=== PATIENT | male | born 1960 | race African-American/Black ===

== ENCOUNTER 2022-04-28 18:11 | Emergency (ER) | payer MEDICAID, SELFPAY ==
--- NOTE | ~2022-04-28 | XR_ITS ---
EXAMINATION: XR forearm LT 2V, XR hand wrist LT CLINICAL INFORMATION: Reason for Exam fracture COMPARISON: None. TECHNIQUE: 3 view series left forearm; 3 view series left wrist. FINDINGS: Left wrist: An oblique fracture of the fourth proximal phalanx is identified without definitive intra-articular extension. No associated erosive osseous lesion. A 4 mm well-corticated ossific body is present adjacent to the radial aspect of the fifth proximal interphalangeal joint and may represent a chronic posttraumatic, ununited fracture fragment. The distal radius appears intact. Left forearm: No fractures or acute appearing subluxations of the former visualized. A chronic appearing 2 mm rounded calcification is present in the antecubital region and may represent a phlebolith. XR/XR hand wrist LT IMPRESSION: Left wrist and left forearm: *Acute displaced oblique fracture of the fourth proximal phalanx. *4 mm well-corticated ossific body along the radial aspect of the fifth proximal interphalangeal joint which may represent the sequela of remote trauma. If clinical concern is present for acute on chronic injury in this region, recommend dedicated hand radiographs for further evaluation.
--- NOTE | ~2022-04-28 | XR_ITS ---
EXAMINATION: XR forearm LT 2V, XR hand wrist LT CLINICAL INFORMATION: Reason for Exam fracture COMPARISON: None. TECHNIQUE: 3 view series left forearm; 3 view series left wrist. FINDINGS: Left wrist: An oblique fracture of the fourth proximal phalanx is identified without definitive intra-articular extension. No associated erosive osseous lesion. A 4 mm well-corticated ossific body is present adjacent to the radial aspect of the fifth proximal interphalangeal joint and may represent a chronic posttraumatic, ununited fracture fragment. The distal radius appears intact. Left forearm: No fractures or acute appearing subluxations of the former visualized. A chronic appearing 2 mm rounded calcification is present in the antecubital region and may represent a phlebolith. XR/XR forearm LT 2V IMPRESSION: Left wrist and left forearm: *Acute displaced oblique fracture of the fourth proximal phalanx. *4 mm well-corticated ossific body along the radial aspect of the fifth proximal interphalangeal joint which may represent the sequela of remote trauma. If clinical concern is present for acute on chronic injury in this region, recommend dedicated hand radiographs for further evaluation.
[2022-04-28 18:19] VITALS: BP 117/74; BP 130/60; PULSE 74; PULSE 81; RESP 20; TEMP 37.2; O2SAT 96; O2SAT 98; BMI 20.3
--- NOTE | 2022-04-28 19:02 | ED.EXTPRO ---
HPI - Extremity Problem General Chief complaint: Extremity Problem Stated complaint: hand fx Time Seen by Provider: 04/28/22 19:02 Source: patient and EMS Mode of arrival: EMS Limitations: physical limitation (Dementia, nonverbal) History of Present Illness HPI Narrative: 61-year-old male presents via EMS from [facility] for fracture to his 4th finger. MD Complaint: extremity swelling Onset (ago): unknown Location: left and upper extremity Associated symptoms: denies other symptoms Related Data Allergies Allergy/AdvReac Type Severity Reaction Status Date / Time SEAFOOD Allergy Severe SWELLING Uncoded 11/12/19 18:18 shell fish Allergy Unknown Uncoded 11/06/18 00:00 Review of Systems Review of Systems: Yes Unobtainable due to mental condition (Nonverbal, dementia) [facility] Past Medical History Attestation statement: The following information was validated with the patient. Source: old records reviewed Social History Social History Smoked in Last 30 Days: No Advance Directives: Yes Advance Directives Information Provided: No Advance Directives on File: No Physical Exam Vital Signs: Vital Signs: Last Vital Signs Temp 99 F 04/28/22 18:19 Pulse 74 04/28/22 18:19 Resp 20 04/28/22 18:19 BP 117/74 04/28/22 18:19 Pulse Ox 98 04/28/22 18:19 O2 Del Method 04/28/22 18:19 BMI result Body Mass Index 20.3 Appearance: Alert. Nonverbal. Eyes: Pupils equal, round and reactive to light. Neck: Normal inspection. Neck supple. CVS: Normal heart rate and rhythm. Pulses normal. Respiratory: No respiratory distress. Breath sounds normal. Abdomen: Soft and nontender. Skin: Skin warm and dry. Normal skin color. Normal skin turgor. Extremities: Visible deformity and swelling to the left 3rd and 4th digits. Neuro: No motor deficit. No sensory deficit. Unable to assess cranial nerves as patient will not follow directions and does not speak Course Course Course Narrative: 61-year-old male presents via EMS for fracture to his left 4th and 5th fingers. Patient is nonverbal, and unable to follow directions I did discuss this case with the attending physician that referred him to the emergency department, Dr. Kaur. Dr. Kaur states that this patient has dementia, is nonverbal, is unable to follow directions. The patient has a behavior, patient likes to hide in closets and bathrooms, and has been known to accidentally crushes hand in the door. It is suspected that this injury occurred during [address] of [address] hiding episodes. Dr. Kaur describes this patient as pleasant, and is not known to have aggressive behaviors. 20:43 x-rays indicate oblique fracture of the 4th proximal phalanx, and 5th interphalangeal joint. Also has posttraumatic chronic fractures consistent with prior injury. Plan of care is for ulnar gutter splint. Dr. Kaur will prescribe the appropriate medications for pain. Report given to Dr. Kaur by this [employer]. Patient will return [facility]. Consultations Consultation #1: Dr. Kaur Medical Decision Making Differential Diagnosis Differential Diagnoses: The differential diagnosis associated with the presentation includes Finger fracture Consult Healthcare Provider Management of the patient was discussed with: Primary Care Provider Independent Interpretation I performed an independent interpretation of an: Plain X-Ray Radiology Impression Discussion of test interpretation with radiology: I have reviewed the radiologist's reading. Radiologist Impression: EXAMINATION: XR forearm LT 2V, XR hand wrist LT CLINICAL INFORMATION: Reason for Exam fracture COMPARISON: None. TECHNIQUE: 3 view series left forearm; 3 view series left wrist. FINDINGS: Left wrist: An oblique fracture of the fourth proximal phalanx is identified without definitive intra-articular extension. No associated erosive osseous lesion. A 4 mm well-corticated ossific body is present adjacent to the radial aspect of the fifth proximal interphalangeal joint and may represent a chronic posttraumatic, ununited fracture fragment. The distal radius appears intact. Left forearm: No fractures or acute appearing subluxations of the former visualized. A chronic appearing 2 mm rounded calcification is present in the antecubital region and may represent a phlebolith. XR/XR hand wrist LT IMPRESSION: Left wrist and left forearm: *Acute displaced oblique fracture of the fourth proximal phalanx. *4 mm well-corticated ossific body along the radial aspect of the fifth proximal interphalangeal joint which may represent the sequela of remote trauma. If clinical concern is present for acute on chronic injury in this region, recommend dedicated hand radiographs for further evaluation.? Chronic Conditions Patient?s care impacted by: Other (Dementia) Social Determinants Patient?s care significantly limited by Social Determinants of Health including: Other Social Determinant of Health Discharge Plan Discharge Clinical Impression: Fracture of phalanx, proximal, left hand Patient Disposition: Xfer SNF Transfer Details: [facility] Instructions: Finger Fracture (ED) Additional Instructions: You were evaluated for finger fractures. Please keep ulnar gutter splint in place until you see orthopedics. Rest ice and elevate the extremity to help reduce pain and swelling. Alternate Tylenol 650 mg every 6 hours and Motrin 600 mg every 6 hours as needed for pain and fever management. Consider taking these medications 3 hours apart so you have pain and fever management every 3 hours. Write down what time you take these medications to prevent accidental overdose. Motrin is the same medication as Advil and ibuprofen. Tylenol is the same medication as acetaminophen. Thank you for choosing this emergency department for evaluation. Please follow-up with primary care physician as needed. Return to the emergency department for any new, concerning, or worsening symptoms.
--- NOTE | 2022-04-28 20:45 | MHC.EDTECH ---
pct William applied ulnar gutter per provider order and I assisted. pt is now resting comfortably awaiting transport home
--- NOTE | 2022-04-28 20:49 | MHC.EDTECH ---
Khadra called at 2047 for a bls transfer back to Facility[facility].Rn aware
--- NOTE | 2022-04-28 21:22 | PC.NURSE ---
verbal report given to [facility]
[2022-04-28 23:33] VITALS: BP 141/82; PULSE 62; RESP 16; O2SAT 99
== END 2022-04-29 00:53 | disposition skilled nursing facility (03) ==
PROVIDERS: Emergency Provider Emergency Medicine Emergency Medical Services; PCP Hospitalist
DX: S62.615A Displaced fracture of proximal phalanx of left ring finger, initial encounter for closed fracture (principal); X58.XXXA Exposure to other specified factors, initial encounter; Y93.9 Activity, unspecified; Y92.049 Unspecified place in boarding-house as the place of occurrence of the external cause; Y99.9 Unspecified external cause status
CPT/HCPCS: 29125; 73090; 73110; 73130; 99283; 99284

== ENCOUNTER 2022-05-14 11:32 | Outpatient (REF) | payer MEDICAID, SELFPAY ==
--- NOTE | ~2022-05-14 | XR_ITS ---
EXAMINATION: XR HAND, LEFT CLINICAL INFORMATION: Oblique fracture fourth proximal phalanx left hand. COMPARISON: Left hand and wrist radiographs 04/28/2022. TECHNIQUE: 5 views of the left hand are obtained. FINDINGS: There is an oblique fracture fourth finger proximal phalanx. There is dorsal angulation of the distal fracture fragment and mild overlap of fracture fragments. No interval callus formation demonstrated. No visible acute fracture or dislocation or destructive process. XR/XR hand LT min 3V IMPRESSION: -Fracture fourth finger proximal phalanx with dorsal angulation distal fragment and mild overlap of fracture fragments. -No interval visible callus formation.
== END 2022-05-14 11:33 | disposition home or self-care (01) ==
LOC: HO.HOSX 11:32
PROVIDERS: Visit Provider Physician Assistant
DX: L98.499 Non-pressure chronic ulcer of skin of other sites with unspecified severity (principal); S62.615A Displaced fracture of proximal phalanx of left ring finger, initial encounter for closed fracture
CPT/HCPCS: 73130; 99202

== ENCOUNTER → 2022-05-15 13:07 | Outpatient (BNVA) | payer MEDICAID, SELFPAY | PROVIDERS: PCP Hospitalist; Visit Provider Physician Assistant | DX: L98.499 Non-pressure chronic ulcer of skin of other sites with unspecified severity (principal); S62.615D Displaced fracture of proximal phalanx of left ring finger, subsequent encounter for fracture with routine healing | CPT/HCPCS: 99212 ==

== ENCOUNTER 2022-05-30 10:19 | Outpatient (REF) | payer MEDICAID, SELFPAY ==
--- NOTE | ~2022-05-30 | XR_ITS ---
EXAMINATION: XR HAND, LEFT CLINICAL INFORMATION: Fracture COMPARISON: Previous x-ray most recent 05/14/2022 TECHNIQUE: 2 views of the left hand. FINDINGS: There is an oblique minimally displaced fracture of the proximal phalanx of the fourth finger. Alignment does not appear appreciably changed. There is adjacent soft tissue swelling. Fracture line is still seen. No appreciable bony callus formation. There is a well-corticated ossification adjacent to the PIP joint of the fifth finger suggestive of old trauma. No other acute fracture. Arthritis at the thumb. XR/XR hand LT min 3V IMPRESSION: No change in fracture of the proximal phalanx of the fourth finger.
== END 2022-05-30 10:20 | disposition home or self-care (01) ==
LOC: HO.HOSX 10:19
PROVIDERS: Visit Provider Orthopaedic Surgery
DX: S62.615D Displaced fracture of proximal phalanx of left ring finger, subsequent encounter for fracture with routine healing (principal); L98.499 Non-pressure chronic ulcer of skin of other sites with unspecified severity
CPT/HCPCS: 73130

== ENCOUNTER 2022-06-06 09:54 | Outpatient (REF) | payer MEDICAID, SELFPAY ==
--- NOTE | ~2022-06-06 | XR_ITS ---
EXAMINATION: XR HAND, LEFT CLINICAL INFORMATION: Fracture COMPARISON: Previous x-rays most recent 05/30/2022 TECHNIQUE: PA, lateral, and oblique views of the left hand. FINDINGS: Fracture of the proximal phalanx of the fourth finger unchanged. Question fracture of the PIP joint of the fifth finger also unchanged. Arthritis at the first MTP joint. Soft tissues are unremarkable. XR/XR hand LT min 3V IMPRESSION: No change in fourth and question fifth finger fractures.
== END 2022-06-06 09:55 | disposition home or self-care (01) ==
LOC: HO.HOSX 09:54
PROVIDERS: PCP Hospitalist; Visit Provider Physician Assistant
DX: S62.615A Displaced fracture of proximal phalanx of left ring finger, initial encounter for closed fracture (principal)
CPT/HCPCS: 29125; 73130

== ENCOUNTER → 2022-06-12 12:15 | Outpatient (BNVA) | payer MEDICAID, SELFPAY | PROVIDERS: PCP Hospitalist; Visit Provider Physician Assistant ==

== ENCOUNTER 2022-06-25 12:38 | Outpatient (REF) | payer MEDICAID, SELFPAY ==
--- NOTE | ~2022-06-25 | XR_ITS ---
Examination: Bilateral hand. CLINICAL INDICATION: Pain. COMPARISON: Left hand 06/06/2022. TECHNIQUE: 3 views each hand. Left hand: There is an oblique healing fracture mid segment proximal phalanx fourth digit and proximal avulsion fracture mid phalanx proximal segment fifth digit. No additional fracture seen. The soft tissues are normal. Right hand: There is no visible acute fracture, dislocation or subluxation seen. There is mild subluxed first metacarpophalangeal joint, the soft tissues are normal. XR/XR hand RT min 3V IMPRESSION: 1. Oblique healing fracture mid segment proximal phalanx fourth digit and proximal avulsion fracture mid phalanx proximal segment fifth digit. 2. Mild subluxed first metacarpophalangeal joint right hand. No visible acute fracture or dislocation right hand.
--- NOTE | ~2022-06-25 | XR_ITS ---
Examination: Bilateral hand. CLINICAL INDICATION: Pain. COMPARISON: Left hand 06/06/2022. TECHNIQUE: 3 views each hand. Left hand: There is an oblique healing fracture mid segment proximal phalanx fourth digit and proximal avulsion fracture mid phalanx proximal segment fifth digit. No additional fracture seen. The soft tissues are normal. Right hand: There is no visible acute fracture, dislocation or subluxation seen. There is mild subluxed first metacarpophalangeal joint, the soft tissues are normal. XR/XR hand LT min 3V IMPRESSION: 1. Oblique healing fracture mid segment proximal phalanx fourth digit and proximal avulsion fracture mid phalanx proximal segment fifth digit. 2. Mild subluxed first metacarpophalangeal joint right hand. No visible acute fracture or dislocation right hand.
== END 2022-06-25 12:39 | disposition home or self-care (01) ==
LOC: HO.HOSX 12:38
PROVIDERS: Visit Provider Physician Assistant
DX: S62.615A Displaced fracture of proximal phalanx of left ring finger, initial encounter for closed fracture (principal); M79.641 Pain in right hand
CPT/HCPCS: 73130; 99212

== ENCOUNTER 2022-07-20 09:16 | Emergency (ER) | payer MEDICAID, SELFPAY ==
--- NOTE | ~2022-07-20 | US_ITS ---
EXAMINATION: US SCROTUM CLINICAL INFORMATION: Penile and scrotal edema. COMPARISON: None available. TECHNIQUE: A sonogram of the scrotum was performed assessing guajardo-scale appearance and color Doppler flow. Spectral Doppler analysis of the arterial and venous flow were performed in the testes bilaterally. FINDINGS: RIGHT: Right testicle measures 3.3 x 2.6 x 2.0 cm, volume 8.9 mL. There is mild atrophy and is appearing testicles without any parenchymal lesions. Spectral Doppler analysis of the arterial and venous flow is increased in the right testis. Right epididymal head is normal in size. There are anechoic cyst in the epidural head measuring 0.8 x 0.5 x 0.7 cm appearing simple and 0.4 x 0.2 x 0.5 cm appearing complex with internal debris. No right hydrocele or varicocele is seen. Right epididymal Doppler flow is normal. LEFT: Left testicle measures 3.1 x 1.8 x 2.3 cm, volume 6.8 mL. No focal testicular parenchymal lesions are visualized. Spectral Doppler analysis of the arterial and venous flow is increased in the left testis. Left epididymal head is normal in size. There is anechoic and visualized head simple cyst measuring 0.6 x 0.4 x 0.3 cm. No left hydrocele or varicocele is seen. Left epididymal Doppler flow is normal. US/US scrotum IMPRESSION: Bilateral heterogeneous and hypervascular testes likely low-grade inflammation. No mass seen. There are bilateral epididymal cysts with normal epididymal Doppler flow. There is no hydrocele or varicocele.
--- NOTE | ~2022-07-20 | US_ITS ---
EXAMINATION: US SCROTUM CLINICAL INFORMATION: Penile and scrotal edema. COMPARISON: None available. TECHNIQUE: A sonogram of the scrotum was performed assessing guajardo-scale appearance and color Doppler flow. Spectral Doppler analysis of the arterial and venous flow were performed in the testes bilaterally. FINDINGS: RIGHT: Right testicle measures 3.3 x 2.6 x 2.0 cm, volume 8.9 mL. There is mild atrophy and is appearing testicles without any parenchymal lesions. Spectral Doppler analysis of the arterial and venous flow is increased in the right testis. Right epididymal head is normal in size. There are anechoic cyst in the epidural head measuring 0.8 x 0.5 x 0.7 cm appearing simple and 0.4 x 0.2 x 0.5 cm appearing complex with internal debris. No right hydrocele or varicocele is seen. Right epididymal Doppler flow is normal. LEFT: Left testicle measures 3.1 x 1.8 x 2.3 cm, volume 6.8 mL. No focal testicular parenchymal lesions are visualized. Spectral Doppler analysis of the arterial and venous flow is increased in the left testis. Left epididymal head is normal in size. There is anechoic and visualized head simple cyst measuring 0.6 x 0.4 x 0.3 cm. No left hydrocele or varicocele is seen. Left epididymal Doppler flow is normal. US/US scrotum doppler IMPRESSION: Bilateral heterogeneous and hypervascular testes likely low-grade inflammation. No mass seen. There are bilateral epididymal cysts with normal epididymal Doppler flow. There is no hydrocele or varicocele.
--- NOTE | 2022-07-20 09:25 | ED.GENADULT ---
HPI - General Adult General Chief complaint: Urogenital-Male Stated complaint: swollen penis Time Seen by Provider: 07/20/22 09:17 Source: EMS Mode of arrival: EMS Limitations: other (Nonverbal dementia) History of Present Illness HPI narrative: 62-year-old male with history of nonverbal dementia presents with penile swelling. Symptoms are noted today. Facility reports possible tenderness and pain. They are not sure if there was any trauma. There has been no reported fevers or chills. There is no clear relieving or exacerbating features. No other significant medical issues have been presented to EMS. They do report some impulsivity behavior and stealing behavior. Possible they have found patient masturbating from time to time using lotions of other patients. Related Data Home Medications Medication Instructions Recorded Confirmed acetaminophen 325 mg capsule 650 mg PO Q4H PRN 05/30/22 aspirin 81 mg tablet,delayed 81 mg PO DAILY 05/30/22 release bisacodyl 10 mg rectal suppository 10 mg ME DAILY PRN 05/30/22 docusate sodium 100 mg capsule 100 mg PO DAILY 05/30/22 (Colace) ibuprofen 200 mg tablet (Motrin IB) 200 mg PO Q6H PRN 05/30/22 isosorbide dinitrate 5 mg tablet 5 mg PO BID 05/30/22 levothyroxine 75 mcg capsule 75 mcg PO DAILY 05/30/22 oxycodone 5 mg capsule 5 mg PO Q4H PRN 05/30/22 Previous Rx's Medication Instructions Recorded ciprofloxacin HCl 500 mg tablet 500 mg PO BID #14 tabs 07/20/22 (Cipro) Allergies Allergy/AdvReac Type Severity Reaction Status Date / Time SEAFOOD Allergy Severe SWELLING Uncoded 06/25/22 12:51 shell fish Allergy Unknown Unknown Uncoded 06/25/22 12:51 [facility] Past Medical History Medical History (Reviewed 07/20/22 @ 09: by Tico Medina MD) Hx of thyroid disease Social History Social History (Reviewed 07/20/22 @ 09: by Tico Medina MD) Alcohol intake: never Smoked in Last 30 Days: No Use of substances other than those prescribed or required for medical reasons: No Advance Directives: No Advance Directives Information Provided: Yes Current occupational status: disabled 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 Physical Exam ED Vital Signs: Vital Signs - 24 hr 07/20/22 09:47 07/20/22 11:48 Temperature 98.0 F 98.2 F Pulse Rate 61 60 Respiratory Rate 16 16 Blood Pressure 125/69 108/72 Pulse Oximetry 100 100 Oxygen Delivery Method Room Air Room Air BMI result Body Mass Index 19.7 GEN: Well developed, no acute distress, alert HEENT: Normocephalic, atraumatic, normal external ears, nose appears normal, no oropharyngeal edema or exudates Eyes: Normal to appearance Neck: Supple, no lymphadenopathy Respiratory: Talks in complete sentences, no respiratory distress, clear to auscultation bilaterally Cardiovascular: Regular rate and rhythm, no murmurs rubs or gallops Abdomen: Soft, nontender, nondistended, no guarding, no rebound Back: No CVA tenderness Extremities: No clubbing cyanosis or edema Neurologic: Moves all extremities : Penile edema, mild scrotal edema Lymph: Bilateral inguinal lymphadenopathy mobile, subcentimeter Skin: No rash Course Course Course Narrative: Patient presents with penile swelling. There is no evidence of trauma. There is no discharge. There is no evidence of paraphimosis, penile discharge. Will do a straight catheterization to check for urinary tract infection. Will also have an ultrasound of the scrotum. Reevaluation(s) Reevaluation #1: Patient is urinary tract infection. He will be treated with antibiotics. Medical Decision Making Medical Decision Making [facility] Narrative: Patient presents with penile edema. Exam did not reveal any tenderness. He did have inguinal lymphadenopathy bilaterally. Will check for urinary tract infection. Will check for orchitis or other possible possible inflammatory conditions. Differential Diagnosis Differential Diagnoses: The differential diagnosis associated with the presentation includes (Orchitis, penile edema, swelling, UTI, trauma) Lab Data [facility] Lab Attestation statement: I reviewed the patient's lab results. Labs: Lab Results 07/20/22 Range/Units 10:54 Urine Color Yellow Urine Appearance Cloudy Urine pH 7.0 (5.0-9.0) Ur Specific [place] 1.025 (1.005-1.025) Urine Protein Trace (Neg-Trace) mg/dL Urine Glucose (UA) Negative (Negative) mg/dL Urine Ketones Negative (Negative) mg/dL Urine Blood Trace H (Negative) Urine Nitrite Positive H (Negative) Ur Leukocyte Esterase Moderate (2+) H (Negative) Urine RBC 3-5 H (0-2) /HPF Urine WBC 21-50 (0-5) /HPF Ur Squamous Epith Cells 0-2 (0-2) /HPF Urine Bacteria 4+ (None Seen) Hyaline Casts 0-2 (0-2) /LPF Independent Interpretation I performed an independent interpretation of an: Ultrasound Prescription Management I considered prescription management with: Antibiotic Discharge Plan Discharge Clinical Impression: Penile swelling, Acute UTI, Inguinal adenopathy Patient Disposition: Home, Self-Care Instructions: Urinary Tract Infection in Men (DC), Lymphadenopathy (ED) Prescriptions: New ciprofloxacin HCl [Cipro] 500 mg tablet 500 mg PO BID Qty: 14 0RF No Action acetaminophen 325 mg capsule 650 mg PO Q4H PRN aspirin 81 mg tablet,delayed release (DR/EC) 81 mg PO DAILY bisacodyl 10 mg suppository 10 mg ME DAILY PRN docusate sodium [Colace] 100 mg capsule 100 mg PO DAILY isosorbide dinitrate 5 mg tablet 5 mg PO BID Rx Instructions: allow nitrate-free interval of 12-14 hrs per 24-hr period ibuprofen [Motrin IB] 200 mg tablet 200 mg PO Q6H PRN oxycodone 5 mg capsule 5 mg PO Q4H PRN levothyroxine 75 mcg capsule 75 mcg PO DAILY Referrals: Gustavo Kaur DO [Primary Care Provider] - 3 days
[2022-07-20 09:47] VITALS: BP 125/69; BP 140/70; PULSE 61; PULSE 79; RESP 16; TEMP 36.7; O2SAT 100; O2SAT 98; BMI 19.7
--- NOTE | 2022-07-20 10:13 | PC.NURSE ---
bedside ultrasound is being done.
[2022-07-20 11:16] LABS: Appearance Urine Cloudy; Color Urine Yellow; Glucose Urine UA Negative (Negative); Leukocyte Esterase Urine Moderate (2+) (Negative); Nitrite Urine Positive (Negative); Specific Gravity - Urine 1.025 (1.005-1.025); UMIC TRIGGER UACC YES; Urine Blood Trace (Negative); Urine Ketones Negative (Negative); Urine Protein Trace mg/dL (Neg-Trace)
[2022-07-20 11:33] LABS: Bacteria Urine 4+ (None Seen); Hyaline Casts Urine 0-2 /LPF (0-2); Squamous Epithelial Cell Urine 0-2 /HPF (0-2); UACC Culture Trigger YES; WBC Urine 21-50 /HPF (0-5)
[2022-07-20 11:48] VITALS: BP 108/72; PULSE 60; RESP 16; TEMP 36.8; O2SAT 100
[2022-07-20] MEDS: cephALEXin 500 MG CAPSULE PO (12:52)
--- NOTE | 2022-07-20 12:59 | MHC.EDTECH ---
pt had a bowel movement, pt cleaned and new pads placed. pt assisted in dressing for discharge.
--- NOTE | 2022-07-20 13:12 | PC.NURSE ---
rn to rn report given to [facility] at [facility] ([phone]). pt aware of plan of care for transfer via ambulance. pt had martín diaz and gonzales.
== END 2022-07-20 13:56 | disposition home or self-care (01) ==
PROVIDERS: Emergency Provider Emergency Medicine; PCP Hospitalist
DX: N48.89 Other specified disorders of penis (principal); N39.0 Urinary tract infection, site not specified; R59.0 Localized enlarged lymph nodes; N50.89 Other specified disorders of the male genital organs; F03.90 Unspecified dementia, unspecified severity, without behavioral disturbance, psychotic disturbance, mood disturbance, and anxiety; Z79.899 Other long term (current) drug therapy
CPT/HCPCS: 76870; 81001; 81003; 87086; 87088; 87186; 93975; 99284

== ENCOUNTER 2022-11-01 15:06 | Outpatient (AMB) | payer MEDICAID, SELFPAY ==
--- NOTE | 2022-11-01 15:07 | A.OFFVIS_ITS ---
Intake Intake Visit Reasons: Genital Warts Intake Note: New Patient presents for initial visit genital warts/swollen scrotum Urology Medications: none Blood Thinner: aspirin Catalyst Recovery Operator Required: No Accompanied by: flight service agent Allergies SEAFOOD Allergy (Severe, Uncoded 11/01/22 21:06) SWELLING shell fish Allergy (Unknown, Uncoded 11/01/22 21:06) Unknown Medication List - Last Reconciled 11/01/22 by MAMI Lucio acetaminophen 650 mg PO Q4H PRN aspirin 81 mg PO DAILY bisacodyl 10 mg [place] DAILY PRN chlorpromazine 50 mg PO BID docusate sodium (Colace) 100 mg PO DAILY doxycycline hyclate 100 mg PO BID 14 days ibuprofen (Motrin IB) 200 mg PO Q6H PRN isosorbide dinitrate 5 mg PO BID levothyroxine 75 mcg PO DAILY oxycodone 5 mg PO Q4H PRN HPI HPI Comments History of Present Illness Details Barrie is a 62-year-old male patient of Dr. Kaur who resides at [facility] here at [place]. He is accompanied by 1 of the care attendants Suri from [facility]. He is nonverbal. He has a past medical history of atherosclerotic heart disease, hypothyroidism, hyperlipidemia, urinary incontinence, dysphagia, hypertension, cataracts, osteoarthritis, and dementia. He presents to the office today as a new patient for ongoing scrotal and penile edema. Call to [facility] to speak with nursing as patient is nonverbal and unable to obtain information from the patient today. Nursing reports approximately 4 months ago patient was sent out to [facility] for this same issue. In review of patient's chart it appears patient was found to have a urinary tract infection and prescribed antibiotics and sent back to [facility]. Nursing reports penile edema/lymphedema mildly improved. Nursing discusses patient rarely allows staff to assist patient with ADLs. She reports he at times will refuse care. They are not sure if there was any trauma. She denies patient to have had any fevers and or chills. There is no clear relieving or exacerbating features. In assessment of the patient today significant penile edema present with mild scrotal edema. There are a cluster of bumps throughout the scrotal area that appear bumpy and cauliflower like. Likely genital warts. Bilateral inguinal lymphadenopathy present mobile, subcentimeter. There is no evidence of trauma. There is no discharge. There is no evidence of paraphimosis. No pain elicited on exam today. In review of patient's chart it appears scrotal ultrasound was performed 07/17 these results were reviewed with nursing. Bilateral heterogeneous and hypervascular testes likely low-grade inflammation. No masses seen. There are bilateral epididymal cysts with normal epididymal Doppler flow. There is no hydrocele or varicocele seen. Unable to obtain urine for urinalysis as patient is unable to give urinalysis due to incontinence. PVR 176 mL. [facility] Medical History Displaced fracture of distal phalanx of left ring finger, initial encounter for closed fracture Personal history of COVID-19 Age-related nuclear cataract, bilateral Osteoarthritis of hip, unspecified Dementia in other diseases classified elsewhere, unspecified severity, without behavioral disturbance, psychotic disturbance, mood disturbance, and anxiety Myopia, bilateral Full incontinence of feces Essential (primary) hypertension Dysphagia, unspecified Allergy to seafood Allergy, unspecified, initial encounter Unspecified urinary incontinence Hyperlipidemia, unspecified Hypothyroidism, unspecified Hx of thyroid disease Social History Alcohol intake: never Current occupational status: disabled 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 Review of Systems Const Reports as per HPI Eyes Reports as per HPI ENT Reports no additional complaints Card Reports as per HPI GI Reports no additional complaints Reports as per HPI Musc Reports as per HPI Neuro Reports as per HPI Psych Reports as per HPI Endo Reports as per HPI Physical Exam Const General: cooperative, comfortable, no acute distress, well developed, alert and awake Orientation/consciousness: Other orientation findings (nonverbal; makes eye contact when calling his name ) HEENT Head: Yes normal to inspection, Yes normocephalic and Yes atraumatic Neck Neck: Yes normal visual inspection and Yes trachea midline Chest Chest palpation & inspection: normal inspection of the chest Resp Effort & Inspection: normal respiratory effort Cardio Rhythm: regular rhythm GI Inspection: Yes normal to inspection Male General Exam: Yes other (as per HPI) Penis: uncircumcised Results Reviewed Results Reviewed: Date of Service: 07/20/22 EXAMINATION: US SCROTUM FINDINGS: RIGHT: Right testicle measures 3.3 x 2.6 x 2.0 cm, volume 8.9 mL. There is mild atrophy and is appearing testicles without any parenchymal lesions. Spectral Doppler analysis of the arterial and venous flow is increased in the right testis. Right epididymal head is normal in size. There are anechoic cyst in the epidural head measuring 0.8 x 0.5 x 0.7 cm appearing simple and 0.4 x 0.2 x 0.5 cm appearing complex with internal debris. No right hydrocele or varicocele is seen. Right epididymal Doppler flow is normal. LEFT: Left testicle measures 3.1 x 1.8 x 2.3 cm, volume 6.8 mL. No focal testicular parenchymal lesions are visualized. Spectral Doppler analysis of the arterial and venous flow is increased in the left testis. Left epididymal head is normal in size. There is anechoic and visualized head simple cyst measuring 0.6 x 0.4 x 0.3 cm. No left hydrocele or varicocele is seen. Left epididymal Doppler flow is normal. IMPRESSION: Bilateral heterogeneous and hypervascular testes likely low-grade inflammation. No mass seen. There are bilateral epididymal cysts with normal epididymal Doppler flow. There is no hydrocele or varicocele. Assessment & Plan Assessment & Plan (1) Penile edema: Code(s): N48.89 - Other specified disorders of penis (2) Genital warts: Code(s): A63.0 - Anogenital (venereal) warts Plan Unable to obtain urine for urinalysis PVR less than 200 mL. Scrotal ultrasound results from 07/17 reviewed Discussed with nursing will start doxycycline 100 mg b.i.d. times 14 days. Discussed changing adult diaper every 2 hours. Discussed elevation of scrotum and penis Discussed bladder scan Q shift to ensure and or assess for urinary retention Discussed, educated, and stressed the importance of seeking emergency room care if symptoms worsen and or patient unable to void Follow-up in 2 weeks; if not sooner with any issues, concerns, and or questions. Medications: New doxycycline hyclate 100 mg PO BID 14 days 28 tabs 0RF N39.0 - Urinary tract infection, site not specified, N45.1 - Epididymitis Patient Instructions: The patient had an opportunity to ask questions regarding the treatment plan. All questions were answered. Physical exam, labs, and imaging were discussed and reviewed in detail. As well as risks, benefits, and discussion of treatment choices. No major barriers to understanding were identified. The patient expressed understanding and agreement with the above treatment plan. The patient was made aware they should contact our office by phone for worsening of their current condition, the appearance of new symptoms, or with any questions or concerns. Compliance is encouraged with any medications and follow up testing that is ordered. It is a privilege to be allowed the opportunity to participate in? your urological care.? Again, if you have any questions or concerns If you have any questions or concerns please do not hesitate to contact me. The office is [phone]. This note is constructed using voice recognition software. While every effort has been made to ensure accuracy director medical writing errors may have been included. Yours sincerely, MAMI Lucio Coding Level of Care Code New Pt Level 4 (68108) Diagnoses Penile edema N48.89 Genital warts A63.0
== END 2022-11-01 15:45 | disposition home or self-care (01) ==
LOC: HO.HUSH 15:06
PROVIDERS: PCP Hospitalist; Visit Provider Nurse Practitioner Family
DX: N48.89 Other specified disorders of penis (principal); A63.0 Anogenital (venereal) warts
CPT/HCPCS: 99204

== ENCOUNTER → 2022-11-01 15:06 | Outpatient (BNVA) | payer MEDICAID, SELFPAY | PROVIDERS: PCP Hospitalist; Visit Provider Nurse Practitioner Family | DX: N48.89 Other specified disorders of penis (principal); A63.0 Anogenital (venereal) warts | CPT/HCPCS: 99202 ==

== ENCOUNTER 2022-11-17 21:36 | Inpatient (IN) | payer MEDICAID, SELFPAY ==
--- NOTE | ~2022-11-17 | CT_ITS ---
EXAMINATION: CT PELVIS WITH CONTRAST CLINICAL INFORMATION: Penile swelling. COMPARISON: None available. TECHNIQUE: Helical scanning was performed with submillimeter collimation through the pelvis with the use of oral contrast and during bolus intravenous injection of 85 mL of Omnipaque 350 intravenous contrast. Sagittal and coronal multiplanar 2-D reconstructions were obtained. This CT examination was performed using dose optimization techniques as appropriate, variously including the following: *Automated exposure control *Adjustment of mA and/or kV according to patient size (this includes techniques or standardized protocols for targeted exams where dose is matched to indication/reason for exam; i.e. extremities or head) *Use of iterative reconstruction technique DLP: 250 mGy-cm FINDINGS: There is significant subcutaneous edema and soft tissue swelling at the penis and scrotum. Skin thickening and enhancement at the base of the penis anteriorly raises the possibility of cellulitis. No significant subcutaneous gas. No discrete fluid collections are identified. Prominent, hyperenhancing bilateral inguinal lymph nodes and enlarged bilateral external iliac lymph nodes (1.5 cm in short axis) are noted, likely reactive in nature. There is a large volume of stool throughout the imaged colon in the pelvis including a large aggregation of well-formed stool in the distal sigmoid and rectum measuring 8 x 6 x 17 cm. No appreciable intraperitoneal free fluid or free air. Bladder wall is mildly the thickened diffusely. No focal nodularity. No bladder calcifications. Vasculature is patent. Mild calcific atherosclerosis in the iliac arteries. Mild osteophytes in the hips and SI joints. Facet arthropathy is present in the lower lumbar spine. CT/CT pelvis w IV con IMPRESSION: 1. Marked soft tissue swelling and subcutaneous edema at the penis and scrotum with skin thickening and enhancement at the base of the penis anteriorly, concerning for cellulitis. No discrete fluid collections. No subcutaneous gas. 2. Large volume of stool in the colon with a large aggregation of well-formed stool in the distal sigmoid and rectum. 3. Mild diffuse bladder wall thickening. Consider correlation with urinalysis to exclude cystitis..
[2022-11-17 21:57] VITALS: BP 126/66; PULSE 65; RESP 18; TEMP 37.2; O2SAT 100; BMI 19.4
--- NOTE | 2022-11-17 22:09 | ED_ITS ---
HPI - Male Genitourinary General Chief complaint: Urogenital-Male Stated complaint: [facility],swollen penis, per ems Time Seen by Provider: 11/17/22 22:05 Source: EMS and RN notes reviewed Mode of arrival: EMS History of Present Illness HPI Narrative: Patient is 62 years old history of severe dementia minimal verbal, hypothyroidism, hyperlipidemia dysphagia and hypertension [place] [facility] [place] [facility] [place] for ongoing scrotal and penile swelling since 07/17 per staff patient complained to them as he is having difficulty urinating and penis is more swollen no fever no penile discharge staff noticed that he has more swelling of the foreskin Related Data Home Medications Medication Instructions Recorded Confirmed acetaminophen 325 mg capsule 650 mg PO Q4H PRN 05/30/22 aspirin 81 mg tablet,delayed 81 mg PO DAILY 05/30/22 release bisacodyl 10 mg rectal suppository 10 mg [place] DAILY PRN 05/30/22 docusate sodium 100 mg capsule 100 mg PO DAILY 05/30/22 (Colace) ibuprofen 200 mg tablet (Motrin IB) 200 mg PO Q6H PRN 05/30/22 isosorbide dinitrate 5 mg tablet 5 mg PO BID 05/30/22 levothyroxine 75 mcg capsule 75 mcg PO DAILY 05/30/22 oxycodone 5 mg capsule 5 mg PO Q4H PRN 05/30/22 chlorpromazine 25 mg tablet 50 mg PO BID 11/01/22 Previous Rx's Medication Instructions Recorded doxycycline hyclate 100 mg tablet 100 mg PO BID 14 days #28 tabs 11/01/22 Allergies Allergy/AdvReac Type Severity Reaction Status Date / Time SEAFOOD Allergy Severe SWELLING Uncoded 11/01/22 21:06 shell fish Allergy Unknown Unknown Uncoded 11/01/22 21:06 Review of Systems 2 Review of Systems: Yes all other systems are reviewed and are negative PMFSH Past Medical History Medical History Displaced fracture of distal phalanx of left ring finger, initial encounter for closed fracture Personal history of COVID-19 Age-related nuclear cataract, bilateral Osteoarthritis of hip, unspecified Dementia in other diseases classified elsewhere, unspecified severity, without behavioral disturbance, psychotic disturbance, mood disturbance, and anxiety Myopia, bilateral Full incontinence of feces Essential (primary) hypertension Dysphagia, unspecified Allergy to seafood Allergy, unspecified, initial encounter Unspecified urinary incontinence Hyperlipidemia, unspecified Hypothyroidism, unspecified Hx of thyroid disease Social History Social History Alcohol intake: never Advance Directives: No Advance Directives Information Provided: No Current occupational status: disabled 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 Refusing to speak Eyes: PERRLA, ENT: Pharynx normal. Oral Mucosa moist Neck: Normal inspection. Neck supple. CVS: Normal heart rate and rhythm. Pulses normal. Respiratory: No respiratory distress. Equal air entry bilateral, no wheezing/rales/rhonchi Abdomen: Soft and nontender. Bowel sounds are present, no mass palpable, no CVA tenderness swollen penis and the foreskin and edema of the scrotal wall Skin: Skin warm and dry. Normal skin color. Normal skin turgor. Bladder scan showed 160 cc urine Extremities: No lower extremity edema. No calf tenderness Neuro: Awake moving all 4 extremities Medications Administered Discontinued Medications Generic Name Dose Route Start Last Admin Trade Name Freq PRN Reason Stop Dose Admin Iohexol 85 ml 11/17/22 23:41 11/17/22 23:41 Iohexol 350 Mg/Ml 100 Ml Infus..Btl IV 11/17/22 23:42 85 ml ONCE ONE Administration Medical Decision Making Medical Decision Making [facility] Narrative: Patient with scrotal and penis cellulitis worsening after the course of doxycycline CT scan showed soft tissue swelling with no air will add start patient on vancomycin admit urology consult Differential Diagnosis Differential Diagnoses: The differential diagnosis associated with the presentation includes Ashley's gangrene/cellulitis Admission/Observation Consideration of admission/observation: Escalation of care including admission/observation considered Consult Healthcare Provider Management of the patient was discussed with: Hospitalist Lab Data [facility] Lab Attestation statement: I reviewed the patient's lab results. 11/17/22 22:20 11/17/22 22:20 Labs: Lab Results 11/17/22 Range/Units 22:20 WBC 4.9 (4.8-10.8) X10*3/uL RBC 3.38 L (4.60-5.80) X10*6/uL Hgb 9.4 L (14.0-18.0) g/dl Hct 30.6 L (42.0-52.0) % MCV 90.5 (80.0-98.0) fL MCH 27.8 (27.0-33.0) pg MCHC 30.7 L (31.0-36.0) g/dl RDW 14.6 (11.0-16.0) % Plt Count 416 H (160-400) X10*3/uL MPV 8.2 L (9.4-12.4) fL Immature Gran % (Auto) 0.2 (0.0-0.4) % Neut % (Auto) 48.9 (45-73) % Lymph % (Auto) 29.8 (20-40) % [place] % (Auto) 13.3 H (2-11) % Eos % (Auto) 7.6 H (0-4) % Baso % (Auto) 0.2 (0-2) % Lymph # (Auto) 1.5 (1.2-4.9) X10*3/uL [place] # (Auto) 0.7 (0.1-1.2) X10*3/uL Eos # (Auto) 0.4 (0.0-0.4) X10*3/uL Baso # (Auto) 0.0 (0.0-0.2) X10*3/uL Abs Immat Gran (auto) 0.01 (0.00-0.03) X10*3/uL Absolute Neuts (auto) 2.4 (2.0-8.3) x10*3/uL Absolute Nucleated RBC 0.000 (0.0-0.012) X10*3/uL Nucleated RBC % (auto) 0.0 (0.0-0.2) /100WBC ESR 43 H (0-15) MM/HR Sodium 140 (135-145) mmol/L Potassium 4.1 (3.3-5.1) mmol/L Chloride 105 (96-108) mmol/L Carbon Dioxide 26 (22-29) mmol/L Anion Gap 13 (12-20) BUN 14 (9-16) mg/dL Creatinine 0.83 (0.5-1.4) mg/dL Estim Creat Clear Calc 82.5 Estimated GFR > 60 Random Glucose 75 (60-115) mg/dL Lactic Acid 1.4 (0.5-2.0) mmol/L Calcium 9.2 (8.4-10.2) mg/dL Total Bilirubin 0.1 (0.0-1.0) mg/dL AST 21 (5-37) U/L ALT 12 (0-40) U/L Alkaline Phosphatase 73 (39-117) U/L C-Reactive Protein 0.59 H (< or = 0.50) mg/dL Total Protein 7.0 (6.5-8.0) g/dL Albumin 3.6 (3.5-5.0) g/dL Radiology Impression Discussion of test interpretation with radiology: I have reviewed the radiologist's reading. Radiologist Impression: CT/CT pelvis w IV con IMPRESSION: 1. Marked soft tissue swelling and subcutaneous edema at the penis and scrotum with skin thickening and enhancement at the base of the penis anteriorly, concerning for cellulitis. No discrete fluid collections. No subcutaneous gas. 2. Large volume of stool in the colon with a large aggregation of well-formed stool in the distal sigmoid and rectum. 3. Mild diffuse bladder wall thickening. Consider correlation with urinalysis to exclude cystitis.. Discharge Plan Discharge Clinical Impression: Cellulitis of scrotum Patient Disposition: Admitted As Inpatient
[2022-11-17 22:32] VITALS: BP 142/90; PULSE 80; O2SAT 99
[2022-11-17 22:32] LABS: MANUAL DIFF FLAG NO
[2022-11-17 22:33] VITALS: BP 126/66; PULSE 80; RESP 18; TEMP 37.2; O2SAT 100
[2022-11-17 22:33] LABS: Basophils Percent Auto 0.2 % (0-2); Eosinophils Absolute Auto 0.4 X10*3/uL (0.0-0.4); Eosinophils Percent Auto 7.6 % (0-4); Hematocrit 30.6 % (42.0-52.0); Hemoglobin 9.4 g/dl (14.0-18.0); Imm Gran Abs Auto 0.01 X10*3/uL (0.00-0.03); Imm Gran Pct Auto 0.2 % (0.0-0.4); Lymphocytes Absolute Auto 1.5 X10*3/uL (1.2-4.9); Lymphocytes Percent Auto 29.8 % (20-40); Mean Corpuscular HGB Conc 30.7 g/dl (31.0-36.0); Mean Corpuscular Hemoglobin 27.8 pg (27.0-33.0); Mean Corpuscular Volume 90.5 fL (80.0-98.0); Mean Platelet Volume 8.2 fL (9.4-12.4); Monocytes Absolute Auto 0.7 X10*3/uL (0.1-1.2); Monocytes Percent Auto 13.3 % (2-11); Neutrophils Absolute Auto 2.4 x10*3/uL (2.0-8.3); Neutrophils Percent Auto 48.9 % (45-73); Platelet Count 416 X10*3/uL (160-400); Red Blood Count 3.38 X10*6/uL (4.60-5.80); Red Cell Distribution Width 14.6 % (11.0-16.0); White Blood Count 4.9 X10*3/uL (4.8-10.8)
[2022-11-17 22:43] LABS: Lactic Acid 1.4 mmol/L (0.5-2.0)
[2022-11-17 22:48] LABS: Alanine Aminotransferase 12 U/L (0-40); Albumin Level 3.6 g/dL (3.5-5.0); Alkaline Phosphatase 73 U/L (39-117); Anion Gap 13 (12-20); Aspartate Amino Transferase 21 U/L (5-37); Bilirubin Total 0.1 mg/dL (0.0-1.0); Blood Urea Nitrogen 14 mg/dL (9-16); Calcium 9.2 mg/dL (8.4-10.2); Carbon Dioxide 26 mmol/L (22-29); Chloride 105 mmol/L (96-108); Creatinine Clr Calc Pharmacy 82.5; Estimated Glomerular Filt Rate > 60; Glucose Random 75 mg/dL (60-115); Potassium 4.1 mmol/L (3.3-5.1); Sodium 140 mmol/L (135-145)
--- NOTE | 2022-11-17 23:11 | PC.NURSE ---
Patient alert. Refused to answer any assessment questions at this time. Per the Floor RN at [facility]. PT is very selective in who he speaks with. He is capable of making his needs known, speaking full sentences and answering questions appropriately. Nurse reports that in June PT was treated at [facility] for enlarged penis/UTI with antibiotics, but there was no improvement. He was referred to urology who began tx of doxycycline for 2 weeks and was instructed to send pt to ED if he had a fever or difficulty voiding. As of today the RN, noted that pt's penis was much larger and firmer today. PT is incontinent and usually will have wet pants by the end of the day and he will hide his wet briefs. The RN noted that he had not had any wet briefs or soiled himself by the afternoon. PT also reported to RN that he has had trouble urinating. RN notes she was unable to retract his foreskin due to pain. According to the RN. pt's penis girth at baseline is 1/4 the girth it currently is. Labs ordered and drawn including blood cultures in two separate areas, IV access placed in right AC. Awaiting disposition. Call nieves within reach.
[2022-11-17 23:14] VITALS: BP 136/75; PULSE 66; RESP 18; TEMP 36.4; O2SAT 97
--- NOTE | 2022-11-17 23:14 | MHC.EDTECH ---
Patient was incont. of a moderate amount of soft stool,patient was cleaned and linen was changed. Vitals and rounds completed.
[2022-11-17 23:25] LABS: C Reactive Protein 0.59 mg/dL (< or = 0.50)
[2022-11-17] MEDS: iohexoL 350 MG/ML 100 ML INFUS..BTL 85 ML IV (23:41)
[2022-11-17 23:55] LABS: Erythrocyte Sedimentation Rate 43 MM/HR (0-15)
--- NOTE | 2022-11-18 00:51 | P.HPHOSP_ITS ---
History of Present Illness Date of Service: 11/18/22 Chief Complaint: Scrotal swelling This is a 62-year-old male with pertinent history of dementia with behavioral disturbance, hypothyroidism, essential hypertension, resident of [facility] who was sent to the ER for evaluation of scrotal swelling. Unable to obtain history from the patient. As per the nurse at [facility], patient is selectively verbal. He only talks to two nurses at the facility. History obtained from ER provider and chart review. Patient has been having scrotal and penile swelling that has been ongoing since June. Scrotal ultrasound was obtained. Patient saw a urologist about 15 days prior to presentation who prescribed 2 week course of doxycycline. Patient's scrotal and penile swelling without improvement from doxycycline. Also has been having difficulty urinating. Unable to obtain review of systems. In the emergency department, imaging concerning for cellulitis Review of Systems 2 Review of Systems: Yes Unobtainable due to mental condition PMFSH Medical History Displaced fracture of distal phalanx of left ring finger, initial encounter for closed fracture Personal history of COVID-19 Age-related nuclear cataract, bilateral Osteoarthritis of hip, unspecified Dementia in other diseases classified elsewhere, unspecified severity, without behavioral disturbance, psychotic disturbance, mood disturbance, and anxiety Myopia, bilateral Full incontinence of feces Essential (primary) hypertension Dysphagia, unspecified Allergy to seafood Allergy, unspecified, initial encounter Unspecified urinary incontinence Hyperlipidemia, unspecified Hypothyroidism, unspecified Hx of thyroid disease Social History Alcohol intake: never Advance Directives: No Advance Directives Information Provided: No Current occupational status: disabled 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 Meds Allergies Allergy/AdvReac Type Severity Reaction Status Date / Time SEAFOOD Allergy Severe SWELLING Uncoded 11/01/22 21:06 shell fish Allergy Unknown Unknown Uncoded 11/01/22 21:06 Active Medications: Current Medications Vancomycin HCl 1,500 mg/ (Sodium Chloride) 500 mls @ 333.333 mls/hr IV ONCE ONE Stop: 11/18/22 02:29 Pharmacy Consult (Consult Rx Vancomycin Dosing) 1 each MISCELLANE DAILY PRN PRN Reason: Consult order Home Medications Medication Instructions Recorded Confirmed Last Taken Type acetaminophen 325 mg capsule 650 mg PO Q4H PRN 05/30/22 Unknown History aspirin 81 mg tablet,delayed 81 mg PO DAILY 05/30/22 Unknown History release bisacodyl 10 mg rectal suppository 10 mg [place] DAILY PRN 05/30/22 Unknown History docusate sodium 100 mg capsule 100 mg PO DAILY 05/30/22 Unknown History (Colace) ibuprofen 200 mg tablet (Motrin IB) 200 mg PO Q6H PRN 05/30/22 Unknown History isosorbide dinitrate 5 mg tablet 5 mg PO BID 05/30/22 Unknown History levothyroxine 75 mcg capsule 75 mcg PO DAILY 05/30/22 Unknown History oxycodone 5 mg capsule 5 mg PO Q4H PRN 05/30/22 Unknown History chlorpromazine 25 mg tablet 50 mg PO BID 11/01/22 Unknown History Physical Exam 2 Vital Signs and Narrative: Vital Signs: Last Vital Signs Temp 97.6 F 11/17/22 23:14 Pulse 66 11/17/22 23:14 Resp 18 11/17/22 23:14 BP 136/75 11/17/22 23:14 Pulse Ox 97 11/17/22 23:14 O2 Del Method Room Air 11/17/22 23:14 BMI result Body Mass Index 19.4 Middle-aged male lying in bed in no distress Neck supple, no JVD Regular rate and rhythm, S1-S2 heard Regular breath sounds bilaterally, no wheezing or crackles appreciated Abdomen soft nontender, no guarding, no rigidity Patient is awake, alert and nonverbal, not following commands Scrotal and penile edema seen, no tenderness Psych: Normal mood No pedal edema Results Labs 11/17/22 22:20 11/17/22 22:20 Labs: Laboratory Results - last 24 hr 11/17/22 22:20 MCV 90.5 MCH 27.8 MCHC 30.7 L RDW 14.6 Plt Count 416 H MPV 8.2 L Immature Gran % (Auto) 0.2 Neut % (Auto) 48.9 Lymph % (Auto) 29.8 Wilson % (Auto) 13.3 H Eos % (Auto) 7.6 H Baso % (Auto) 0.2 Lymph # (Auto) 1.5 Wilson # (Auto) 0.7 Eos # (Auto) 0.4 Baso # (Auto) 0.0 Abs Immat Gran (auto) 0.01 Absolute Neuts (auto) 2.4 Absolute Nucleated RBC 0.000 Nucleated RBC % (auto) 0.0 ESR 43 H Anion Gap 13 Estim Creat Clear Calc 82.5 Estimated GFR > 60 Random Glucose 75 Lactic Acid 1.4 Calcium 9.2 Total Bilirubin 0.1 AST 21 ALT 12 Alkaline Phosphatase 73 C-Reactive Protein 0.59 H Total Protein 7.0 Albumin 3.6 Imaging Radiologist's Impressions: Impressions Pelvis CT 11/17/22 23:50 IMPRESSION: 1. Marked soft tissue swelling and subcutaneous edema at the penis and scrotum with skin thickening and enhancement at the base of the penis anteriorly, concerning for cellulitis. No discrete fluid collections. No subcutaneous gas. 2. Large volume of stool in the colon with a large aggregation of well-formed stool in the distal sigmoid and rectum. 3. Mild diffuse bladder wall thickening. Consider correlation with urinalysis to exclude cystitis.. Assessment and Plan (1) Cellulitis of scrotum: Status: Acute Plan This is a 62-year-old male with pertinent history of dementia with behavioral disturbance, hypothyroidism, essential hypertension, resident of [facility] who was sent to the ER for evaluation of scrotal swelling. #. Scrotal cellulitis and penile edema. Will admit patient with empiric IV antibiotics as he failed outpatient p.o. antibiotics. Saw Urology as an outpatient on 11/01. No sepsis. Elevation of scrotum and penis. Bladder scan Q shift. May need Urology consult. UA pending #. Hypothyroidism on Synthroid #. Dementia with behavioral disturbance. Patient is nonverbal/selectively verbal at baseline. Maintain sleep-wake cycle #. Essential hypertension. Continue home antihypertensives #. Normocytic anemia. Hemoglobin above transfusion threshold Med rec pending DVT prophylaxis: Lovenox Full code. No MOLST form on admission. Readdress in a.m. Admit as inpatient and will require two night minimum hospital stay for IV antibiotics Time Spent With Patient Time: Total time managing care of this patient today ____ minutes. Quality Stroke Does the patient have a stroke diagnosis?: No VTE Prior VTE?: No VTE Risk Level:: Medical - moderate - high VTE Device Contraindication: Treatment Not Indicated VTE Drug Contraindication: N/A - Med Ordered
[2022-11-18] MEDS: vancomycin HCL 1,500 MG in 0.9 % Sodium Chloride 500 ML 333.33 MG IV (01:57)
[2022-11-18] MEDS: Enoxaparin Sodium 40 MG/0.4 ML SYRINGE SUBCUT (01:59)
--- NOTE | 2022-11-18 02:09 | PC.NURSE ---
Straight cath attempted by PAXTON Chavira and provider Dr. Fulton. Unable to locate the urethra. Unable to place [place] catheter due to the girth of his penis and concern for constriction. Medications administered as per APR. Pt resting peacefully in no acute distress.
[2022-11-18 02:41] VITALS: BP 133/76; PULSE 78; RESP 18; TEMP 36.3; O2SAT 100
[2022-11-18] MEDS: cefTRIAXone sodium 1 GM in 0.9 % Sodium Chloride 50 ML IV (03:55)
[2022-11-18 07:40] VITALS: BP 131/70; PULSE 64; RESP 16; TEMP 36.7; O2SAT 100
[2022-11-18 08:21] LABS: Alanine Aminotransferase 11 U/L (0-40); Albumin Level 3.1 g/dL (3.5-5.0); Alkaline Phosphatase 64 U/L (39-117); Anion Gap 12 (12-20); Aspartate Amino Transferase 19 U/L (5-37); Bilirubin Total 0.1 mg/dL (0.0-1.0); Blood Urea Nitrogen 13 mg/dL (9-16); Calcium 8.9 mg/dL (8.4-10.2); Carbon Dioxide 25 mmol/L (22-29); Chloride 107 mmol/L (96-108); Creatinine Clr Calc Pharmacy 86.7; Estimated Glomerular Filt Rate > 60; Glucose Random 92 mg/dL (60-115); Potassium 4.1 mmol/L (3.3-5.1); Sodium 140 mmol/L (135-145); Total Protein 6.3 g/dL (6.5-8.0)
[2022-11-18] MEDS: 0.9 % Sodium Chloride Flush 3 ML SYRINGE IVFLUSH ×2 (09:29→16:29)
--- NOTE | 2022-11-18 09:36 | PHA.MEDREC ---
Pharmacy Consult ? Medication Reconciliation Pharmacy has completed the medication reconciliation. Spoke to nursing at [facility] who went over medication list over the phone
--- NOTE | 2022-11-18 11:09 | MHC.CM.PN ---
Addendum entered by Ebony Ríos 11/18/22 13:05: CM RECEIVED A RETURN CALL FROM PTS GUARDIAN WHO IS AWARE HE IS INPATIENT AND REQUESTS UPDATES INDICATED HE PROVIDED A CELL PHONE NUMBER OF [phone] HE DID STATE HE EXPECTS TO BE IN HIS OFFICE ALL DAY TOMORROW THOUGH, OFFICE NUMBER IS ON FILE Original Note: PT IS A LTC RESIDENT OF [facility] [place] CM LEFT A VM MESSAGE FOR PTS GUARDIAN, JERZY MATOS [phone] INFORMING HIM OF PTS ADMISSION AND PROVIDING CM CONTACT NUMBER DCP: RETURN TO [facility] [place] VIA BLS
--- NOTE | 2022-11-18 12:05 | PHA.PROG ---
Admission Date/Time: November 18, 2022 00:48 Indication: Scrotal Cellulitis Weight in k.9 kg Adjusted body weight in K.52 kg [place] body weight in K.6 kg Obesity Dosing Indication % IBW: n/a Serum Creatinine - Last 168 Hours 11/17/22 11/18/22 22:20 05:44 Creatinine 0.83 0.79 Estimated CrCl and GFR - Last 168 Hours 11/17/22 11/18/22 22:20 05:44 Estim Creat Clear Calc 82.5 86.7 Estimated GFR > 60 > 60 Vancomycin Loading Dose: 1500 mg (23 mg/kg) Current Vancomycin Dosing Regimen: 1000 mg Q12H Date and Time for next Vancomycin Level to be drawn: 11/19 @ 1200 Pharmacist Comments on Vancomycin Plan: patient received an adequate load in the ER @ 0157 Maintenance dose vancomycin 1000 mg Q12H is scheduled to start 11/18 @ 1400. Expected AUC 569 with a trough of 17.7 Level is scheduled for prior to the 4th dose Pharmacy will monitor renal function daily Lisa Amaya PharmD Vancomycin dosing will take advantage of [employer] as a clinical decision support tool that uses Bayesian modeling to calculate individual patient's pharmacokinetic parameters and forecast the patient's drug concentration time course with the target goal AUC 24 range of 400 - 600 mg/L/hr.
--- NOTE | 2022-11-18 12:32 | PM.EVENT ---
Event Note Date of Service: 11/18/22 Event Note: Seen and evaluated non verbal No fever reported Continue current antibiotics pending final cultures Time Spent With Patient Time: Total time managing care of this patient today ____ minutes.
[2022-11-18] MEDS: Levothyroxine Sodium 75 MCG TABLET PO (12:49)
[2022-11-18] MEDS: chlorproMAZINE HCl 25 MG TABLET 50 MG PO ×2 (12:49→19:22)
[2022-11-18] MEDS: Docusate Sodium 100 MG CAPSULE PO (12:59)
[2022-11-18] MEDS: bisacodyL 10 MG SUPP.RECT PR (13:00)
--- NOTE | 2022-11-18 13:04 | P.CNUR_ITS ---
History of Present Illness Consult details Consult date: 11/18/22 Narrative: Scrotal cellulitis Edematous penis Incontinent Scrotal thickening particular right side Recurrent Norman catheter with given pain teen p.m. Doxycycline daily Norman catheter placed by urologic staff member. Good efflux of urine. See nursing note for description of total output. Sixteen [place] Norman catheter 10 cc balloon PMFSH Past Medical History Medical History Displaced fracture of distal phalanx of left ring finger, initial encounter for closed fracture Personal history of COVID-19 Age-related nuclear cataract, bilateral Osteoarthritis of hip, unspecified Dementia in other diseases classified elsewhere, unspecified severity, without behavioral disturbance, psychotic disturbance, mood disturbance, and anxiety Myopia, bilateral Full incontinence of feces Essential (primary) hypertension Dysphagia, unspecified Allergy to seafood Allergy, unspecified, initial encounter Unspecified urinary incontinence Hyperlipidemia, unspecified Hypothyroidism, unspecified Hx of thyroid disease Social History Social History Household Members: Unknown / Unable to assess Housing: [facility] Unable to assess alcohol history related to: Unable to respond Alcohol intake: never Patient Tobacco Use Status: Tobacco use Unknown service: No Current occupational status: disabled 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 Meds Allergies Allergy/AdvReac Type Severity Reaction Status Date / Time SEAFOOD Allergy Severe SWELLING Uncoded 11/01/22 21:06 shell fish Allergy Unknown Unknown Uncoded 11/01/22 21:06 Active Medications: Current Medications Acetaminophen (Acetaminophen 325 Mg Tablet) 650 mg PO Q6H PRN PRN Reason: Pain, Mild (Pain Scale 1-3) Aspirin (Aspirin Enteric Coated 81 Mg Tablet.Dr) 81 mg PO DAILY REPLACED BY [facility] Bisacodyl (Bisacodyl 10 Mg Supp.Rect) 10 mg [place] DAILY REPLACED BY [facility] Last Admin: 11/18/22 13:00 Dose: 10 mg Chlorpromazine HCl (Chlorpromazine Hcl 25 Mg Tablet) 50 mg PO BID REPLACED BY [facility] Last Admin: 11/18/22 12:49 Dose: 50 mg Docusate Sodium (Docusate Sodium 100 Mg Capsule) 100 mg PO DAILY REPLACED BY [facility] Last Admin: 11/18/22 12:59 Dose: 100 mg Enoxaparin Sodium (Enoxaparin Sodium 40 Mg/0.4 Ml Syringe) 40 mg SUBCUT Q24H REPLACED BY [facility] Last Admin: 11/18/22 01:59 Dose: 40 mg Gabapentin (Gabapentin 100 Mg Capsule) 100 mg PO BEDTIME REPLACED BY [facility] Vancomycin HCl 1,000 mg/ (Sodium Chloride) 270 mls @ 270 mls/hr IV Q12H REPLACED BY [facility] Isosorbide Dinitrate (Isosorbide Dinitrate 5 Mg Tablet) 5 mg PO BID REPLACED BY [facility]; Protocol Lactulose (Lactulose 20 Gm/30 Ml Solution) 20 gm PO TID REPLACED BY [facility] Levofloxacin (Levofloxacin 500 Mg Tablet) 500 mg PO ONCE ONE Stop: 11/18/22 13:03 Levothyroxine Sodium (Levothyroxine Sodium 75 Mcg Tablet) 75 mcg PO DAILY@0600 REPLACED BY [facility] Last Admin: 11/18/22 12:49 Dose: 75 mcg Melatonin (Melatonin 3 Mg Tablet) 6 mg PO BEDTIME PRN PRN Reason: Insomnia Multivitamins/Vitamin C (Multivitamin Tablet) 1 tab PO DAILY REPLACED BY [facility] Ondansetron HCl (Ondansetron Hcl 4 Mg/2 Ml Vial) 4 mg IVPUSH Q8H PRN PRN Reason: Nausea and Vomiting Pharmacy Consult (Consult Rx Vancomycin Dosing) 1 each MISCELLANE DAILY PRN PRN Reason: Consult order Sodium Chloride (0.9 % Sodium Chloride Flush 3 Ml Syringe) 3 ml IVFLUSH QSHIFT REPLACED BY [facility] Last Admin: 11/18/22 09:29 Dose: 3 ml Home Medications Medication Instructions Recorded Confirmed Last Taken Type acetaminophen 325 mg capsule 650 mg PO Q4H PRN Pain 05/30/22 11/18/22 Unknown History aspirin 81 mg tablet,delayed 81 mg PO DAILY 05/30/22 11/18/22 Unknown History release bisacodyl 10 mg rectal suppository 10 mg [place] DAILY PRN Constipation 05/30/22 11/18/22 Unknown History docusate sodium 100 mg capsule 100 mg PO DAILY 05/30/22 11/18/22 Unknown History (Colace) ibuprofen 200 mg tablet (Motrin IB) 600 mg PO Q6H PRN Pain 05/30/22 11/18/22 Unknown History isosorbide dinitrate 5 mg tablet 5 mg PO BID 05/30/22 11/18/22 Unknown History chlorpromazine 25 mg tablet 50 mg PO BID 11/01/22 11/18/22 Unknown History levothyroxine 75 mcg tablet 75 mcg PO DAILY@0600 11/18/22 11/18/22 Unknown History multivitamin 1 tab PO DAILY 11/18/22 11/18/22 Unknown History Physical Exam 2 Vital Signs: Vital Signs: Last Vital Signs Temp 98.0 F 11/18/22 07:40 Pulse 64 11/18/22 07:40 Resp 16 11/18/22 07:40 BP 131/70 11/18/22 07:40 Pulse Ox 100 11/18/22 07:40 O2 Del Method Room Air 11/18/22 07:40 BMI result Body Mass Index 19.4 Results Labs 11/17/22 22:20 11/18/22 05:44 Labs: Abnormal lab results 11/17/22 11/18/22 Range/Units 22:20 05:44 RBC 3.38 L (4.60-5.80) X10*6/uL Hgb 9.4 L (14.0-18.0) g/dl Hct 30.6 L (42.0-52.0) % MCHC 30.7 L (31.0-36.0) g/dl Plt Count 416 H (160-400) X10*3/uL MPV 8.2 L (9.4-12.4) fL [place] % (Auto) 13.3 H (2-11) % Eos % (Auto) 7.6 H (0-4) % ESR 43 H (0-15) MM/HR C-Reactive Protein 0.59 H (< or = 0.50) mg/dL Total Protein 6.3 L (6.5-8.0) g/dL Albumin 3.1 L (3.5-5.0) g/dL Short CBC 11/17/22 Range/Units 22:20 WBC 4.9 (4.8-10.8) X10*3/uL Hgb 9.4 L (14.0-18.0) g/dl Hct 30.6 L (42.0-52.0) % Plt Count 416 H (160-400) X10*3/uL BMP 11/17/22 11/18/22 22:20 05:44 Sodium 140 140 Potassium 4.1 4.1 Chloride 105 107 Carbon Dioxide 26 25 BUN 14 13 Creatinine 0.83 0.79 Calcium 9.2 8.9 Liver Function 11/17/22 11/18/22 Range/Units 22:20 05:44 Total Bilirubin 0.1 0.1 (0.0-1.0) mg/dL AST 21 19 (5-37) U/L ALT 12 11 (0-40) U/L Alkaline Phosphatase 73 64 (39-117) U/L Albumin 3.6 3.1 L (3.5-5.0) g/dL All other labs normal. Assessment and Plan (1) Cellulitis of scrotum: Status: Acute (2) Penile edema: Status: Acute Plan Norman catheter Time Spent With Patient Time: Total time managing care of this patient today ____ minutes. Procedures Date of Service Date of Service: 11/18/22
[2022-11-18] MEDS: levoFLOXacin 500 MG TABLET PO (13:31)
[2022-11-18] MEDS: Isosorbide Dinitrate 5 MG TABLET PO ×2 (13:31→19:22)
[2022-11-18] MEDS: Lactulose 20 GM/30 ML SOLUTION PO ×2 (13:33→19:22)
[2022-11-18] MEDS: vancomycin HCL 1,000 MG in 0.9 % Sodium Chloride 250 ML 270 MG IV (13:35)
[2022-11-18 15:11] VITALS: BP 129/55; PULSE 75; RESP 18; TEMP 37.1; O2SAT 96
[2022-11-18] MEDS: Gabapentin 300 MG CAPSULE PO (19:22)
[2022-11-18 20:00] VITALS: BP 110/83; PULSE 83; TEMP 37.2; O2SAT 96
--- NOTE | 2022-11-19 | ECG_ITS ---
Test Reason : qtc check Blood Pressure : / mmHG Vent. Rate : 072 BPM Atrial Rate : 072 BPM P-R Int : 168 ms QRS Dur : 070 ms QT Int : 340 ms P-R-T Axes : 074 066 062 degrees QTc Int : 372 ms Normal sinus rhythm with sinus arrhythmia Normal ECG No previous ECGs available Referred By: Radha Navarro Electronically Signed By:LEV WARNER
[2022-11-19] MEDS: vancomycin HCL 1,000 MG in 0.9 % Sodium Chloride 250 ML 270 MG IV (02:03)
[2022-11-19] MEDS: Enoxaparin Sodium 40 MG/0.4 ML SYRINGE SUBCUT (02:04)
[2022-11-19 04:00] VITALS: BP 123/80; PULSE 68; RESP 20; TEMP 36.6; O2SAT 98
[2022-11-19] MEDS: Levothyroxine Sodium 75 MCG TABLET PO (06:24)
[2022-11-19] MEDS: 0.9 % Sodium Chloride Flush 3 ML SYRINGE IVFLUSH ×2 (06:24→14:01)
[2022-11-19 07:25] LABS: Hematocrit 27.6 % (42.0-52.0); Hemoglobin 8.7 g/dl (14.0-18.0); Mean Corpuscular HGB Conc 31.5 g/dl (31.0-36.0); Mean Corpuscular Hemoglobin 28.1 pg (27.0-33.0); Mean Platelet Volume 8.6 fL (9.4-12.4); Platelet Count 402 X10*3/uL (160-400); Red Cell Distribution Width 14.6 % (11.0-16.0); White Blood Count 5.5 X10*3/uL (4.8-10.8)
[2022-11-19 07:31] LABS: Glucose, Whole Blood 99 mg/dL (60-115)
[2022-11-19 07:39] LABS: Anion Gap 10 (12-20); Blood Urea Nitrogen 9 mg/dL (9-16); Calcium 8.6 mg/dL (8.4-10.2); Carbon Dioxide 25 mmol/L (22-29); Chloride 108 mmol/L (96-108); Creatinine Clr Calc Pharmacy 83.5; Estimated Glomerular Filt Rate > 60; Glucose Random 80 mg/dL (60-115); Potassium 3.9 mmol/L (3.3-5.1); Sodium 139 mmol/L (135-145)
[2022-11-19 08:00] VITALS: BP 129/67; PULSE 66; RESP 16; TEMP 36.4; O2SAT 100
[2022-11-19] MEDS: Isosorbide Dinitrate 5 MG TABLET PO ×2 (09:23→21:21)
[2022-11-19] MEDS: chlorproMAZINE HCl 25 MG TABLET 50 MG PO ×2 (09:23→21:21)
[2022-11-19] MEDS: Multivitamin TABLET 1 TAB PO (09:24)
[2022-11-19] MEDS: Aspirin Enteric Coated 81 MG TABLET.DR PO (09:24)
[2022-11-19] MEDS: Lactulose 20 GM/30 ML SOLUTION PO ×3 (09:24→21:20)
[2022-11-19] MEDS: bisacodyL 10 MG SUPP.RECT PR (09:24)
[2022-11-19] MEDS: Docusate Sodium 100 MG CAPSULE PO (09:24)
[2022-11-19 11:12] LABS: Glucose, Whole Blood 112 mg/dL (60-115)
[2022-11-19 12:51] LABS: Vancomycin Trough 10.9 mcg/mL (10.0-20.0)
--- NOTE | 2022-11-19 13:14 | HE.PHANOTE ---
RE:VANCO SCR IS STABLE, TROUGH RETURNED AT 10.9. WHILE THERAPEUTIC, DECISION WAS MADE TO INCREASE DOSE TO 750MG 8H. NEXT LEVEL DUE ON 11/20/22 AT 1200 AND SHOULD YIELD EXPECTED AUC OF 544 AND TROUGH OF 17.6. VY
[2022-11-19] MEDS: vancomycin HCL 750 MG in 0.9 % Sodium Chloride 250 ML 265 MG IV ×2 (13:59→21:19)
--- NOTE | 2022-11-19 14:59 | MHC.CM.PN ---
EMR reviewed. Per MD rounds potential discharge tomorrow 11/20/22. Plan to return to [facility] via BLS. Updates sent to [facility]. CM will continue to follow.
--- NOTE | 2022-11-19 15:07 | P.PNIM_ITS ---
Subjective Subjective Date of Service: 11/19/22 Interval History: Seen and evaluated non verbal blood culture has GPC Review of Systems Review of Systems: Yes Unobtainable due to mental status Physical Exam 2 Vital Signs: Vital Signs: Last Vital Signs Temp 97.5 F 11/19/22 08:00 Pulse 66 11/19/22 08:00 Resp 16 11/19/22 08:00 BP 129/67 11/19/22 08:00 Pulse Ox 100 11/19/22 08:00 O2 Del Method Room Air 11/19/22 08:00 BMI result Body Mass Index 19.4 Const: Other: Constitutional : Awake, not in distress Cardiovascular : RRR, no JVP, no lower extremity edema Respiratory : good bilateral air entry, no crackles, wheezes or rhonchi Gastrointestinal: soft, lax, Non tender Skin : Warm, Dry Urology: thickened scrotum with scratching nicole , edematous penis with no drainage noted Neurological : Alert, non reactive, non verbal Objective Data Active Medications Acetaminophen (Acetaminophen 325 Mg Tablet) 650 mg PO Q6H PRN PRN Reason: Pain, Mild (Pain Scale 1-3) Aspirin (Aspirin Enteric Coated 81 Mg Tablet.Dr) 81 mg PO DAILY [facility] Last Admin: 11/19/22 09:24 Dose: 81 mg Documented By: MICHELLE Bisacodyl (Bisacodyl 10 Mg Supp.Rect) 10 mg [place] DAILY [facility] Last Admin: 11/19/22 09:24 Dose: 10 mg Documented By: MICHELLE Chlorpromazine HCl (Chlorpromazine Hcl 25 Mg Tablet) 50 mg PO BID [facility] Last Admin: 11/19/22 09:23 Dose: 50 mg Documented By: MICHELLE Docusate Sodium (Docusate Sodium 100 Mg Capsule) 100 mg PO DAILY [facility] Last Admin: 11/19/22 09:24 Dose: 100 mg Documented By: MICHELLE Enoxaparin Sodium (Enoxaparin Sodium 40 Mg/0.4 Ml Syringe) 40 mg SUBCUT Q24H [facility] Last Admin: 11/19/22 02:04 Dose: 40 mg Documented By: MICHELET Gabapentin (Gabapentin 300 Mg Capsule) 300 mg PO BEDTIME [facility] Last Admin: 11/18/22 19:22 Dose: 300 mg Documented By: CULLEN Vancomycin HCl 750 mg/ Sodium (Chloride) 265 mls @ 265 mls/hr IV Q8H [facility] Last Admin: 11/19/22 13:59 Dose: 265 mls/hr Documented By: ROSARIO Isosorbide Dinitrate (Isosorbide Dinitrate 5 Mg Tablet) 5 mg PO BID [facility]; Protocol Last Admin: 11/19/22 09:23 Dose: 5 mg Documented By: MICHELLE Lactulose (Lactulose 20 Gm/30 Ml Solution) 20 gm PO TID [facility] Last Admin: 11/19/22 13:59 Dose: 20 gm Documented By: ROSARIO Levothyroxine Sodium (Levothyroxine Sodium 75 Mcg Tablet) 75 mcg PO DAILY@0600 [facility] Last Admin: 11/19/22 06:24 Dose: 75 mcg Documented By: MICHELLE Melatonin (Melatonin 3 Mg Tablet) 6 mg PO BEDTIME PRN PRN Reason: Insomnia Multivitamins/Vitamin C (Multivitamin Tablet) 1 tab PO DAILY [facility] Last Admin: 11/19/22 09:24 Dose: 1 tab Documented By: MICHELLE Ondansetron HCl (Ondansetron Hcl 4 Mg/2 Ml Vial) 4 mg IVPUSH Q8H PRN PRN Reason: Nausea and Vomiting Pharmacy Consult (Consult Rx Vancomycin Dosing) 1 each MISCELLANE DAILY PRN PRN Reason: Consult order Sodium Chloride (0.9 % Sodium Chloride Flush 3 Ml Syringe) 3 ml IVFLUSH QSHIFT [facility] Last Admin: 11/19/22 14:01 Dose: 3 ml Documented By: ROSARIO Labs 11/19/22 05:30 11/19/22 05:30 Labs: Laboratory Results - last 24 hr 11/19/22 11/19/22 11/19/22 05:30 07:27 11:08 MCV 89.0 MCH 28.1 MCHC 31.5 RDW 14.6 Plt Count 402 H MPV 8.6 L Absolute Nucleated RBC 0.000 Nucleated RBC % (auto) 0.0 Anion Gap 10 L Estim Creat Clear Calc 83.5 Estimated GFR > 60 POC Glucose 99 112 Random Glucose 80 Calcium 8.6 Vancomycin Trough 11/19/22 12:22 MCV MCH MCHC RDW Plt Count MPV Absolute Nucleated RBC Nucleated RBC % (auto) Anion Gap Estim Creat Clear Calc Estimated GFR POC Glucose Random Glucose Calcium Vancomycin Trough 10.9 Microbiology Microbiology Results: Microbiology 11/17/22 22:20 Blood Culture - Preliminary Blood - Venous Prelim: GPC Gram Stain only 11/17/22 22:27 Blood Culture - Preliminary Blood - Venous No growth after 24 hours. Assessment and Plan (1) Cellulitis of scrotum: Status: Acute (2) Positive blood culture: Status: Acute Plan This is a 62-year-old male with pertinent history of dementia with behavioral disturbance, hypothyroidism, essential hypertension, resident of [facility] who was sent to the ER for evaluation of scrotal swelling. #. Scrotal cellulitis and penile edema with positive blood culture Blood cx has 1 set of GPC Urology input appreciated, sheikh and abx levaquin Elevation of scrotum and penis. on Vancomycin for now pending final sensitivity follow vanc trough #. Hypothyroidism on Synthroid #. Dementia with behavioral disturbance. Patient is nonverbal/selectively verbal at baseline. Maintain sleep-wake cycle #. Essential hypertension. Continue home antihypertensives #. Normocytic anemia. Hemoglobin above transfusion threshold DVT prophylaxis: Lovenox Full code Admit as inpatient and will require overnight minimum hospital stay for IV antibiotics pending final cultures Time Spent With Patient Time: Total time managing care of this patient today ____ minutes. Quality Stroke Does the patient have a stroke diagnosis?: No VTE Prior VTE?: No VTE Risk Level:: Medical - moderate - high VTE Device Contraindication: Treatment Not Indicated VTE Drug Contraindication: N/A - Med Ordered
[2022-11-19] MEDS: levoFLOXacin 500 MG TABLET PO (15:20)
[2022-11-19 15:46] VITALS: BP 108/55; PULSE 70; RESP 18; TEMP 36.7; O2SAT 100
[2022-11-19 20:00] VITALS: BP 142/65; PULSE 66; RESP 20; TEMP 36.2; O2SAT 100
[2022-11-19 20:15] LABS: Glucose, Whole Blood 114 mg/dL (60-115)
[2022-11-19] MEDS: Gabapentin 300 MG CAPSULE PO (21:21)
[2022-11-20] MEDS: Enoxaparin Sodium 40 MG/0.4 ML SYRINGE SUBCUT (01:00)
[2022-11-20] MEDS: 0.9 % Sodium Chloride Flush 3 ML SYRINGE IVFLUSH ×2 (01:00→09:19)
[2022-11-20 04:00] VITALS: BP 132/62; PULSE 80; RESP 20; TEMP 36.3; O2SAT 95
[2022-11-20] MEDS: vancomycin HCL 750 MG in 0.9 % Sodium Chloride 250 ML 265 MG IV (05:22)
[2022-11-20] MEDS: Levothyroxine Sodium 75 MCG TABLET PO (06:14)
[2022-11-20 07:12] VITALS: BP 123/63; PULSE 67; RESP 16; TEMP 36.1; O2SAT 100
[2022-11-20 07:22] LABS: Glucose, Whole Blood 77 mg/dL (60-115)
[2022-11-20 07:44] LABS: Creatinine Clr Calc Pharmacy 86.7; Estimated Glomerular Filt Rate > 60
[2022-11-20] MEDS: chlorproMAZINE HCl 25 MG TABLET 50 MG PO (09:19)
[2022-11-20] MEDS: Lactulose 20 GM/30 ML SOLUTION PO (09:19)
[2022-11-20] MEDS: Multivitamin TABLET 1 TAB PO (09:19)
[2022-11-20] MEDS: Isosorbide Dinitrate 5 MG TABLET PO (09:19)
[2022-11-20] MEDS: Aspirin Enteric Coated 81 MG TABLET.DR PO (09:19)
--- NOTE | 2022-11-20 11:19 | PM.DS ---
DS: Providers Provider Date of Service: 11/20/22 Date of admission: 11/18/22 00:48 Primary care physician: Gustavo Kaur DO Consults: 11/18/22 12:51 Consult to Urology Routine Consulting Provider: Eliecer Osei Reason for consultation: Scrotal and penile swelling DS: Diagnosis Discharge Diagnosis (1) Cellulitis of scrotum: Status: Acute (2) Positive blood culture: Status: Acute DS: Summary Hospital Course Hospital Course: Admission note HPI This is a 62-year-old male with pertinent history of dementia with behavioral disturbance, hypothyroidism, essential hypertension, resident of [facility] who was sent to the ER for evaluation of scrotal swelling. Unable to obtain history from the patient. As per the nurse at [facility], patient is selectively verbal. He only talks to two nurses at the facility. History obtained from ER provider and chart review. Patient has been having scrotal and penile swelling that has been ongoing since June. Scrotal ultrasound was obtained. Patient saw a urologist about 15 days prior to presentation who prescribed 2 week course of doxycycline. Patient's scrotal and penile swelling without improvement from doxycycline. Also has been having difficulty urinating. Unable to obtain review of systems. In the emergency department, imaging concerning for cellulitis Hospital course The patient was treated for Scrotal cellulitis and penile edema with positive blood culture. Final culture grew Coag neg staph. he was covered by Vancomycin until the final cultures. Evaluated by Urologist dr Osei who placed a Sheikh and recommended 2 weeks of Abx Levaquin as he failed Doxycycline before. To be followed by Urology as outpatient. Noted to have constipation. started on Laxatives and had bowel movements. to continue as outpatient. Sheikh catheter placed Finish 2 weeks of Levofloxacin Gabapentin night team to decrease itching Follow with urology as outpatient Time Spent with Patient Time attestation: Total time managing care of this patient today ____ minutes. Discharge coordination time: Greater than 30 minutes Quality: Safe Use of Opioids Does Pt have an Active Cancer Diagnosis on the Problem List?: No Quality: Stroke Does the patient have a stroke diagnosis?: No Physical Exam Vital Signs: Vital Signs: Last Vital Signs Temp 96.9 F 11/20/22 07:12 Pulse 67 11/20/22 07:12 Resp 16 11/20/22 07:12 BP 123/63 11/20/22 07:12 Pulse Ox 100 11/20/22 07:12 O2 Del Method Room Air 11/20/22 07:12 BMI result Body Mass Index 19.4 Const: Other: Constitutional : Awake, not in distress Cardiovascular : RRR, no JVP, no lower extremity edema Respiratory : good bilateral air entry, no crackles, wheezes or rhonchi Gastrointestinal: soft, lax, Non tender Skin : Warm, Dry Urology: thickened scrotum with scratching nicole , edematous penis with no drainage noted , sheikh in place Neurological : Alert, non reactive, non verbal DS: Data Data Completed and Pending Labs on day of discharge: Laboratory Results - last 24 hr 11/19/22 11/19/22 11/20/22 12:22 20:10 05:24 Creatinine 0.79 Estim Creat Clear Calc 86.7 Estimated GFR > 60 POC Glucose 114 Vancomycin Trough 10.9 11/20/22 07:18 Creatinine Estim Creat Clear Calc Estimated GFR POC Glucose 77 Vancomycin Trough Preliminary micro results at discharge 11/17/22 22:27 Blood Culture - Preliminary Blood - Venous No growth after 48 hours. Imaging Chest x-ray: Radiologist's impression: ITS Impressions Pelvis CT 11/17/22 23:50 IMPRESSION: 1. Marked soft tissue swelling and subcutaneous edema at the penis and scrotum with skin thickening and enhancement at the base of the penis anteriorly, concerning for cellulitis. No discrete fluid collections. No subcutaneous gas. 2. Large volume of stool in the colon with a large aggregation of well-formed stool in the distal sigmoid and rectum. 3. Mild diffuse bladder wall thickening. Consider correlation with urinalysis to exclude cystitis.. Discharge Plan Discharge Anticipated Discharge Date/Time: 11/20/22 11:12 Patient Disposition: er [facility] Discharge Diagnosis: Scrotal cellulitis Referrals: [facility] [Outside] - 1 Week Gustavo Kaur DO [Primary Care Provider] - 1 Week Discharge Medications: New levofloxacin 500 mg Tablet 500 mg PO Q24H Qty: 12 0RF gabapentin 300 mg Capsule 300 mg PO BEDTIME Qty: 30 0RF polyethylene glycol 3350 [Miralax] 17 gram powder in packet 17 g PO DAILY Qty: 30 0RF Continued multivitamin Tablet 1 tab PO DAILY levothyroxine 75 mcg Tablet 75 mcg PO DAILY@0600 acetaminophen 325 mg capsule 650 mg PO Q4H PRN (Reason: Pain) aspirin 81 mg tablet,delayed release (DR/EC) 81 mg PO DAILY bisacodyl 10 mg suppository 10 mg KS DAILY PRN (Reason: Constipation) docusate sodium [Colace] 100 mg capsule 100 mg PO DAILY isosorbide dinitrate 5 mg tablet 5 mg PO BID Rx Instructions: allow nitrate-free interval of 12-14 hrs per 24-hr period ibuprofen [Motrin IB] 200 mg tablet 600 mg PO Q6H PRN (Reason: Pain) chlorpromazine 25 mg tablet 50 mg PO BID Discharge Orders: Discharge Order (Routine); Ordered 11/20/22 Ordered By: Radha Navarro Diet: Advance to usual diet Activity on Discharge: As tolerated Stand Alone Forms: Patient Portal Discharge page Care Plan Goals: Read below Health Concerns: Read below Plan of Treatment: Read below Assessment: Sheikh catheter placed Finish 2 weeks of Levofloxacin Gabapentin night team to decrease itching Follow with urology as outpatient Discharge Date/Time: 11/20/22 16:18
--- NOTE | 2022-11-20 11:42 | MHC.CM.PN ---
DP: PT MEDICALLY CLEARED FOR DC TODAY. PLAN TO RETURN TO [facility] VIA BLS TRANSPORT AT 3PM WITH [facility]. LEFT MESSAGE FOR GUARDIAN [facility]ER[facility]Y WITH UPDATE. CENTER UPDATED AND REQUESTED NURSE TO NURSE. RN AWARE AND WILL CALL.
--- NOTE | 2022-11-20 12:36 | P.CDIM_ITS ---
PROVIDER RESPONSE TEXT: To clarify, the appropriate diagnosis supported by the clinical indicators: Other (explain): within normal weight QUERY TEXT: PHYSICIAN'S DOCUMENTATION REQUEST Date of Query: 11/19/2022 10:31 AM EDT Patient Name: Barrie Silva Admit Date: 11/18/2022 Dear Radha Navarro, A review of the medical record indicates additional documentation may be needed. Please review below and update the documentation accordingly. Clinical Indicators: BMI 19 6ft in height 64.9kg If possible, please provide an associated diagnosis related to the abnormal BMI, such as: Underweight Weight loss Anorexia Other (explain)Clinically unable to determine (explain)Thank you, Mandy Frye, CCS, CDIS Use of terms such as suspected, likely, concern for, or probable (associated with a specific diagnosi s that is being evaluated, monitored, or treated as if it exists) are acceptable and can be coded in the inpatient se tting, when documented at the time of discharge. Please use your independent medical judgment in providing your response. THIS QUERY IS PART OF THE PERMANENT MEDICAL RECORD
[2022-11-20 12:57] LABS: Vancomycin Trough 14.9 mcg/mL (10.0-20.0)
== END 2022-11-20 16:18 | DRG 501 ==
LOC: HO.ED 11-18 00:40 → HO.EDOVER 11-18 00:55 → HO.S3 11-18 01:30
PROVIDERS: Admitting Provider Student in an Organized Health Care Education/Training Program; Emergency Provider Internal Medicine; PCP Hospitalist; Visit Provider Student in an Organized Health Care Education/Training Program
DX: N49.2 Inflammatory disorders of scrotum (principal); F03.C18 Unspecified dementia, severe, with other behavioral disturbance; E03.9 Hypothyroidism, unspecified; N48.89 Other specified disorders of penis; I10 Essential (primary) hypertension; K59.00 Constipation, unspecified; D64.9 Anemia, unspecified; E78.5 Hyperlipidemia, unspecified; Z79.82 Long term (current) use of aspirin; Z79.890 Hormone replacement therapy; Z79.899 Other long term (current) drug therapy
CPT/HCPCS: 36415; 72193; 80048; 80053; 80202; 82565; 82947; 83605; 85025; 85027; 85652; 86140; 87040; 87147; 87205; 93005; 99285; C1758; J0696; J1650; J3370; J3371; Q9967

== ENCOUNTER → 2022-11-18 00:48 | Outpatient (BNV) | payer MEDICAID, SELFPAY | PROVIDERS: Admitting Provider Student in an Organized Health Care Education/Training Program; Emergency Provider Internal Medicine; PCP Hospitalist; Visit Provider Urology | DX: N49.2 Inflammatory disorders of scrotum (principal); N48.89 Other specified disorders of penis | CPT/HCPCS: 99222 ==

== ENCOUNTER → 2022-11-18 00:48 | Outpatient (BNV) | payer MEDICAID, SELFPAY | PROVIDERS: Admitting Provider Student in an Organized Health Care Education/Training Program; Emergency Provider Internal Medicine; PCP Hospitalist; Visit Provider Student in an Organized Health Care Education/Training Program | DX: N49.2 Inflammatory disorders of scrotum (principal); R78.81 Bacteremia | CPT/HCPCS: 99222; 99232; 99239; 99499 ==

== ENCOUNTER 2022-12-03 10:38 | Emergency (ER) | payer MEDICAID, SELFPAY ==
--- NOTE | 2022-12-03 10:43 | ED.GENADULT ---
HPI - General Adult General Chief complaint: General Medical Stated complaint: PAIN/SWELLING OF GENITALS FROM SNF PER EMS Time Seen by Provider: 12/03/22 10:42 Source: EMS Mode of arrival: EMS Limitations: altered mental status History of Present Illness HPI narrative: Swelling to genitalia Onset (ago): day(s) Related Data Home Medications Medication Instructions Recorded Confirmed acetaminophen 325 mg capsule 650 mg PO Q4H PRN Pain 05/30/22 11/18/22 aspirin 81 mg tablet,delayed 81 mg PO DAILY 05/30/22 11/18/22 release bisacodyl 10 mg rectal suppository 10 mg MD DAILY PRN Constipation 05/30/22 11/18/22 docusate sodium 100 mg capsule 100 mg PO DAILY 05/30/22 11/18/22 (Colace) ibuprofen 200 mg tablet (Motrin IB) 600 mg PO Q6H PRN Pain 05/30/22 11/18/22 isosorbide dinitrate 5 mg tablet 5 mg PO BID 05/30/22 11/18/22 chlorpromazine 25 mg tablet 50 mg PO BID 11/01/22 11/18/22 levothyroxine 75 mcg tablet 75 mcg PO DAILY@0600 11/18/22 11/18/22 multivitamin 1 tab PO DAILY 11/18/22 11/18/22 Previous Rx's Medication Instructions Recorded gabapentin 300 mg capsule 300 mg PO BEDTIME #30 caps 11/20/22 levofloxacin 500 mg tablet 500 mg PO Q24H #12 tabs 11/20/22 polyethylene glycol 3350 17 gram 17 g PO DAILY #30 ea 11/20/22 oral powder packet (Miralax) valacyclovir 1 gram tablet 1,000 mg PO DAILY #20 tabs 12/03/22 (Valtrex) valacyclovir 500 mg tablet 500 mg PO DAILY #90 tabs 12/03/22 (Valtrex) Allergies Allergy/AdvReac Type Severity Reaction Status Date / Time SEAFOOD Allergy Severe SWELLING Uncoded 11/01/22 21:06 shell fish Allergy Unknown Unknown Uncoded 11/01/22 21:06 Review of Systems Review of Systems: Yes Unobtainable due to mental status Neurologic: Denies Sensory deficit (Neuro) [facility] Past Medical History Medical History Displaced fracture of distal phalanx of left ring finger, initial encounter for closed fracture Personal history of COVID-19 Age-related nuclear cataract, bilateral Osteoarthritis of hip, unspecified Dementia in other diseases classified elsewhere, unspecified severity, without behavioral disturbance, psychotic disturbance, mood disturbance, and anxiety Myopia, bilateral Full incontinence of feces Essential (primary) hypertension Dysphagia, unspecified Allergy to seafood Allergy, unspecified, initial encounter Unspecified urinary incontinence Hyperlipidemia, unspecified Hypothyroidism, unspecified Hx of thyroid disease Social History Social History Household Members: Unknown / Unable to assess Housing: Skilled Nursing Unable to assess alcohol history related to: Unable to respond Alcohol intake: never Patient Tobacco Use Status: Tobacco use Unknown Smoked in Last 30 Days: No Use of substances other than those prescribed or required for medical reasons: No Advance Directives: No Advance Directives Information Provided: No service: No Current occupational status: disabled 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 Physical Exam ED Vital Signs: Vital Signs - 24 hr 12/03/22 10:51 Temperature 97.8 F Pulse Rate 94 Respiratory Rate 16 Blood Pressure 139/88 Pulse Oximetry 100 Oxygen Delivery Method Room Air BMI result Body Mass Index 20.7 Const Other: male looking older than stated age, chronically ill Limitations: altered mental status and behavioral limitations HENMT Head: Yes normal to inspection Ears: external ears normal General nose exam: Normal external nose present Mouth: Normal oral and palatal mucosa present and oropharynx normal Throat: Yes posterior oropharynx normal Eyes General: appearance normal, both eyes and all related structures Neck Neck: Yes normal visual inspection Chest Chest palpation & inspection: normal inspection of the chest Resp Auscultation: clear to auscultation bilaterally Cardio Jugular venous distension: no JVD Rate: regular rate Rhythm: regular rhythm Heart sounds: S1 normal heart sound present and S2 normal heart sound present GI Inspection: Yes normal to inspection Palpation (GI): Soft to palpation, nontender and No hepatosplenomegaly present Auscultation: normal bowel sounds Other: very edematous penis and scrotum with lesions consistent with herpes Skin Other: lesions on scrotum Neuro Motor exam (neuro): 5/5 motor strength present throughout Sensory Exam: No Sensory deficit (Neuro) Extrem General: Yes normal to inspection Psych Appearance: grossly normal Course Reevaluation(s) Reevaluation #1: patient with herpes genitalia and resulting edema Time: 13:23 Medications Administered Discontinued Medications Generic Name Dose Route Start Last Admin Trade Name Freq PRN Reason Stop Dose Admin Valacyclovir HCl 1,000 mg 12/03/22 10:51 12/03/22 11:36 Valacyclovir Hcl 1,000 Mg Tablet PO 12/03/22 10:52 Not Given ONCE ONE Medical Decision Making Differential Diagnosis Differential Diagnoses: The differential diagnosis associated with the presentation includes (fourniers, cellulitis, disseminated herpes were all considered) Admission/Observation Consideration of admission/observation: Escalation of care including admission/observation considered (upon arrival patient considered for admission) Lab Data MDM Lab Attestation statement: I reviewed the patient's lab results. (no renal failure) 12/03/22 11:41 12/03/22 11:41 Labs: Lab Results 12/03/22 Range/Units 11:41 WBC 6.2 (4.8-10.8) X10*3/uL RBC 3.18 L (4.60-5.80) X10*6/uL Hgb 8.9 L (14.0-18.0) g/dl Hct 28.4 L (42.0-52.0) % MCV 89.3 (80.0-98.0) fL MCH 28.0 (27.0-33.0) pg MCHC 31.3 (31.0-36.0) g/dl RDW 14.7 (11.0-16.0) % Plt Count 398 (160-400) X10*3/uL MPV 8.0 L (9.4-12.4) fL Immature Gran % (Auto) 0.2 (0.0-0.4) % Neut % (Auto) 66.5 (45-73) % Lymph % (Auto) 17.8 L (20-40) % Hartley % (Auto) 10.9 (2-11) % Eos % (Auto) 4.4 H (0-4) % Baso % (Auto) 0.2 (0-2) % Lymph # (Auto) 1.1 L (1.2-4.9) X10*3/uL Hartley # (Auto) 0.7 (0.1-1.2) X10*3/uL Eos # (Auto) 0.3 (0.0-0.4) X10*3/uL Baso # (Auto) 0.0 (0.0-0.2) X10*3/uL Abs Immat Gran (auto) 0.01 (0.00-0.03) X10*3/uL Absolute Neuts (auto) 4.1 (2.0-8.3) x10*3/uL Absolute Nucleated RBC 0.000 (0.0-0.012) X10*3/uL Nucleated RBC % (auto) 0.0 (0.0-0.2) /100WBC Sodium 142 (135-145) mmol/L Potassium 3.6 (3.3-5.1) mmol/L Chloride 105 (96-108) mmol/L Carbon Dioxide 27 (22-29) mmol/L Anion Gap 14 (12-20) BUN 17 H (9-16) mg/dL Creatinine 0.82 (0.5-1.4) mg/dL Estim Creat Clear Calc 84.1 Estimated GFR > 60 Random Glucose 134 H (60-115) mg/dL Calcium 9.2 D (8.4-10.2) mg/dL Independent Interpretation I performed an independent interpretation of an: CT Scan (considered but patient with recent imaging) Independent Historian Clinical information obtained from an independent historian. History obtained from or confirmed by: EMS External Record Review External record reviewed: Inpatient record and Outpatient record Chronic Conditions Patient?s care impacted by: Other (dementia) Discharge Plan Discharge Clinical Impression: Herpes genitalis Qualifiers: Herpes simplex infection site: other site of male genital organs Qualified Code(s): A60.02 - Herpesviral infection of other male genital organs Patient Disposition: Home, Self-Care Prescriptions: New valacyclovir [Valtrex] 1 gram tablet 1,000 mg PO DAILY Qty: 20 0RF valacyclovir [Valtrex] 500 mg tablet 500 mg PO DAILY Qty: 90 0RF Rx Instructions: to be taken after 10 days of acute treatment for the rest of his life No Action multivitamin Tablet 1 tab PO DAILY levothyroxine 75 mcg Tablet 75 mcg PO DAILY@0600 levofloxacin 500 mg Tablet 500 mg PO Q24H Qty: 12 0RF gabapentin 300 mg Capsule 300 mg PO BEDTIME Qty: 30 0RF polyethylene glycol 3350 [Miralax] 17 gram powder in packet 17 g PO DAILY Qty: 30 0RF acetaminophen 325 mg capsule 650 mg PO Q4H PRN (Reason: Pain) aspirin 81 mg tablet,delayed release (DR/EC) 81 mg PO DAILY bisacodyl 10 mg suppository 10 mg MD DAILY PRN (Reason: Constipation) docusate sodium [Colace] 100 mg capsule 100 mg PO DAILY isosorbide dinitrate 5 mg tablet 5 mg PO BID Rx Instructions: allow nitrate-free interval of 12-14 hrs per 24-hr period ibuprofen [Motrin IB] 200 mg tablet 600 mg PO Q6H PRN (Reason: Pain) chlorpromazine 25 mg tablet 50 mg PO BID Referrals: Eliecer Osei MD [Physician] - 1 week
[2022-12-03 10:51] VITALS: BP 122/62; BP 139/88; PULSE 89; PULSE 94; RESP 16; TEMP 36.6; O2SAT 100; O2SAT 98; BMI 20.7
--- NOTE | 2022-12-03 11:37 | PC.NURSE ---
pt not willing to take PO meds by mouth, trial with pudding - pt not willing to open his mouth. would be unsafe administration. made aware
[2022-12-03 11:59] LABS: Anion Gap 14 (12-20); Blood Urea Nitrogen 17 mg/dL (9-16); Calcium 9.2 mg/dL (8.4-10.2); Carbon Dioxide 27 mmol/L (22-29); Chloride 105 mmol/L (96-108); Creatinine Clr Calc Pharmacy 84.1; Estimated Glomerular Filt Rate > 60; Glucose Random 134 mg/dL (60-115); Potassium 3.6 mmol/L (3.3-5.1); Sodium 142 mmol/L (135-145)
[2022-12-03 14:37] VITALS: BP 111/63; PULSE 66; RESP 16; O2SAT 100
== END 2022-12-03 14:54 ==
PROVIDERS: Emergency Provider Emergency Medicine; PCP Hospitalist
DX: A60.02 Herpesviral infection of other male genital organs (principal); Z79.899 Other long term (current) drug therapy
CPT/HCPCS: 36415; 80048; 85025; 99283; 99284

== ENCOUNTER 2022-12-10 14:07 | Outpatient (AMB) | payer MEDICAID, SELFPAY ==
--- NOTE | 2022-12-10 14:05 | A.OFFVIS_ITS ---
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 Kaur who resides at [facility] here at [place]. He is accompanied by 1 of the care attendants from [facility]. He is nonverbal. He has a past medical history of atherosclerotic heart disease, hypothyroidism, hyperlipidemia, urinary incontinence, dysphagia, hypertension, cataracts, osteoarthritis, and dementia. He presents to the office today for a follow up. Of note, patient was seen in the office approximately 5 weeks ago as a new patient for ongoing scrotal and penile edema at which time he was started on doxycycline and recommendations were made for 2 weeks in office follow-up. However, it appears patient was [place] [facility] [place] end of last month for ongoing scrotal and penile edema at which time the patient was treated for Scrotal cellulitis and penile edema with positive blood culture. Final culture grew Coag neg staph. He was covered by Vancomycin until the final cultures. Evaluated by Dr. Osei who placed a Norman and recommended 2 weeks of antibiotic therapy of Levaquin in recommendations were made for Urology follow- up out patient. It appears patient was then seen again in the emergency room approximately 1 week ago at which time he was treated with Valtrex for genital herpes. Patient presents to the office today with ongoing penile and scrotal edema. In assessment of the patient today significant penile edema present with mild scrotal edema. There are a cluster of bumps throughout the scrotal area that appear bumpy and cauliflower like. Likely genital warts. Bilateral inguinal lymphadenopathy present mobile, subcentimeter. There is no evidence of trauma. There is no active discharge. There is no evidence of paraphimosis. No pain elicited on exam today. Work up has included a scrotal ultrasound performed 07/17 noting bilateral heterogeneous and hypervascular testes likely low-grade inflammation. No masses seen. There are bilateral epididymal cysts with normal epididymal Doppler flow. There is no hydrocele or varicocele seen. Pelvis CT 11/17 noting marked soft tissue swelling and subcutaneous edema at the penis and scrotum with skin thickening and enhancement at the base of the penis anteriorly, concerning for cellulitis. No discrete fluid collections. No subc utaneous gas. Unable to obtain urine for urinalysis as patient is unable to give urinalysis due to incontinence. PVR 188 mLs. [facility] Medical History Displaced fracture of distal phalanx of left ring finger, initial encounter for closed fracture Personal history of COVID-19 Age-related nuclear cataract, bilateral Osteoarthritis of hip, unspecified Dementia in other diseases classified elsewhere, unspecified severity, without behavioral disturbance, psychotic disturbance, mood disturbance, and anxiety Myopia, bilateral Full incontinence of feces Essential (primary) hypertension Dysphagia, unspecified Allergy to seafood Allergy, unspecified, initial encounter Unspecified urinary incontinence Hyperlipidemia, unspecified Hypothyroidism, unspecified Hx of thyroid disease Social History Household Members: Unknown / Unable to assess Housing: [facility] Unable to assess alcohol history related to: Unable to respond Alcohol intake: never Patient Tobacco Use Status: Tobacco use Unknown service: No Current occupational status: disabled 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 Review of Systems Const Reports as per HPI Eyes Reports as per HPI ENT Reports no additional complaints Card Reports as per HPI GI Reports no additional complaints Reports as per HPI Musc Reports as per HPI Neuro Reports as per HPI Psych Reports as per HPI Endo Reports as per HPI Physical Exam Const General: cooperative, comfortable, no acute distress, well developed, alert and awake Orientation/consciousness: Other orientation findings (nonverbal; makes eye contact when calling his name ) HEENT Head: Yes normal to inspection, Yes normocephalic and Yes atraumatic Neck Neck: Yes normal visual inspection and Yes trachea midline Chest Chest palpation & inspection: normal inspection of the chest Resp Effort & Inspection: normal respiratory effort Cardio Rhythm: regular rhythm GI Inspection: Yes normal to inspection Male General Exam: Yes other (as per HPI) Penis: uncircumcised Office Procedures Post Void Residual Post Residual Void Post Void Residual (PVR): [id number] Void Residual by ultrasound Assessment & Plan Assessment & Plan (1) Penile edema: Code(s): N48.89 - Other specified disorders of penis (2) Genital warts: Code(s): A63.0 - Anogenital (venereal) warts Plan Unable to obtain urine for urinalysis PVR 188 mL. Recent imaging and noted from ER visit and hospital stay reviewed Discussed with nursing will start doxycycline 100 mg b.i.d. Discussed changing adult diaper every 1-2 hours and PRN when soiled Discussed elevation of scrotum and penis Discussed bladder scan Q shift to ensure and or assess for urinary retention Discussed, educated, and stressed the importance of seeking emergency room care if symptoms worsen and or patient unable to void Follow-up in 2 weeks; if not sooner with any issues, concerns, and or questions. Orders: Orders AMB Post Void Residual by ultrasound Today N48.89 - Other specified disorders of penis Medications: New doxycycline hyclate 100 mg PO BID 30 days 60 tabs 0RF N39.0 - Urinary tract infection, site not specified, N45.1 - Epididymitis Patient Instructions: The patient had an opportunity to ask questions regarding the treatment plan. All questions were answered. Physical exam, labs, and imaging were discussed and reviewed in detail. As well as risks, benefits, and discussion of treatment choices. No major barriers to understanding were identified. The patient expressed understanding and agreement with the above treatment plan. The patient was made aware they should contact our office by phone for worsening of their current condition, the appearance of new symptoms, or with any questions or concerns. Compliance is encouraged with any medications and follow up testing that is ordered. It is a privilege to be allowed the opportunity to participate in? your urological care.? Again, if you have any questions or concerns If you have any questions or concerns please do not hesitate to contact me. The office is [phone]. This note is constructed using voice recognition software. While every effort has been made to ensure accuracy inspector quality assurance errors may have been included. Yours sincerely, MAMI Lucio Coding Level of Care Code Est Pt Level 3 (73774) Diagnoses Penile edema N48.89 Genital warts A63.0 CPT Codes Post Residual Void - PVR CPT Code: 85868-Yhrw Void Residual by ultrasound ([id number])
== END 2022-12-10 15:01 | disposition home or self-care (01) ==
PROVIDERS: PCP Hospitalist; Visit Provider Nurse Practitioner Family
DX: N48.89 Other specified disorders of penis (principal); A63.0 Anogenital (venereal) warts
CPT/HCPCS: 99213

== ENCOUNTER → 2022-12-10 14:07 | Outpatient (BNVA) | payer MEDICAID, SELFPAY | PROVIDERS: PCP Hospitalist; Visit Provider Nurse Practitioner Family | DX: N48.89 Other specified disorders of penis (principal); A63.0 Anogenital (venereal) warts | CPT/HCPCS: 51798; 99212 ==

== ENCOUNTER 2023-01-14 09:14 | Outpatient (AMB) | payer MEDICAID, SELFPAY ==
--- NOTE | 2023-01-14 09:16 | MHC.OFFVIS ---
Intake Intake Visit Reasons: 1 month follow up/ PVR Intake Note: Patient presents for follow up visit genital warts/swollen scrotum Urology Medications: none Blood Thinner: aspirin PVR: 112ml's Map Colorer Required: No Accompanied by: labor relations officer Allergies SEAFOOD Allergy (Severe, Uncoded 01/14/23 14:50) SWELLING shell fish Allergy (Unknown, Uncoded 01/14/23 14:50) Unknown Medication List - Last Reconciled 01/14/23 by MAMI Lucio acetaminophen 650 mg PO Q4H PRN amitriptyline 25 mg PO BEDTIME 30 days aspirin 81 mg PO DAILY bisacodyl 10 mg [place] DAILY PRN chlorpromazine 50 mg PO BID docusate sodium (Colace) 100 mg PO DAILY gabapentin 300 mg PO BEDTIME ibuprofen (Motrin IB) 600 mg PO Q6H PRN isosorbide dinitrate 5 mg PO BID levothyroxine 75 mcg PO DAILY@0600 multivitamin 1 tab PO DAILY polyethylene glycol 3350 (Miralax) 17 grams PO DAILY valacyclovir (Valtrex) 500 mg PO DAILY HPI HPI Comments History of Present Illness Details Barrie is a 62-year-old male patient of Dr. Kaur who resides at [facility] [place]. He is accompanied by one of the care attendants from [facility]. He is mainly nonverbal however at times will answer yes or no questions. He has a past medical history of atherosclerotic heart disease, hypothyroidism, hyperlipidemia, urinary incontinence, dysphagia, hypertension, cataracts, osteoarthritis, and dementia. He presents to the office today for a follow up of his scrotal cellulitis and penile edema. In assessment of the patient today there is significant penile edema with mild scrotal edema. There is a cluster of bumps throughout the scrotal area that appear bumpy and cauliflower like. There is an area of irritation noted to the right groin area. Discussed insertion of Sheikh and trial of amitriptyline in addition to the gabapentin the patient is already taking. However, patient adamantly refusing Sheikh catheter placement. He has a history of agitation thus sheikh catheter was not attempted here in the office. Approximately 2 months ago patient was admitted to [facility] for this exact issue. Final culture grew Coag neg staph. He was covered by Vancomycin until the final cultures. Call to [facility] at [phone] and spoke with Mishel patient's nurse. Discussed at length plan of care. She discusses patient with a history of self removal of indwelling Sheikh. She also discusses patient's behaviors at length. Discussed importance of elevation of scrotum, holding bowel regimen due to patient's ongoing diarrhea, importance of changing patient when incontinent and or every 2 hours, and PVR every 4-6 hours to ensure patient is not retaining urine. Discussed seeking medical treatment if symptoms worsen. Unable to obtain urine for urinalysis as patient is unable to give urinalysis due to incontinence. PVR 188 mLs. [facility] Medical History Displaced fracture of distal phalanx of left ring finger, initial encounter for closed fracture Personal history of COVID-19 Age-related nuclear cataract, bilateral Osteoarthritis of hip, unspecified Dementia in other diseases classified elsewhere, unspecified severity, without behavioral disturbance, psychotic disturbance, mood disturbance, and anxiety Myopia, bilateral Full incontinence of feces Essential (primary) hypertension Dysphagia, unspecified Allergy to seafood Allergy, unspecified, initial encounter Unspecified urinary incontinence Hyperlipidemia, unspecified Hypothyroidism, unspecified Hx of thyroid disease Social History Household Members: Unknown / Unable to assess Housing: Residential Unable to assess alcohol history related to: Unable to respond Alcohol intake: never Patient Tobacco Use Status: Tobacco use Unknown service: No Current occupational status: disabled 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 Review of Systems Const Reports as per HPI Eyes Reports as per HPI ENT Reports no additional complaints Card Reports as per HPI GI Reports no additional complaints Reports as per HPI Musc Reports as per HPI Neuro Reports as per HPI Psych Reports as per HPI Endo Reports as per HPI Physical Exam Const General: cooperative, comfortable, no acute distress, well developed, alert and awake Orientation/consciousness: Other orientation findings (nonverbal; makes eye contact when calling his name ) HEENT Head: Yes normal to inspection, Yes normocephalic and Yes atraumatic Neck Neck: Yes normal visual inspection and Yes trachea midline Chest Chest palpation & inspection: normal inspection of the chest Resp Effort & Inspection: normal respiratory effort Cardio Rhythm: regular rhythm GI Inspection: Yes normal to inspection Male General Exam: Yes other (as per HPI) Penis: uncircumcised Psych Attitude: Guarded attititude/behavior present and Avoids eye contact (attititude/behavior) Insight: Limited insight present (Psych) Judgement: Limited judgement present (Psych) Office Procedures Post Void Residual Post Residual Void Post Void Residual (PVR): 112 [id number] Void Residual by ultrasound Assessment & Plan Assessment & Plan (1) Genital warts: Code(s): A63.0 - Anogenital (venereal) warts (2) Cellulitis of scrotum: Code(s): N49.2 - Inflammatory disorders of scrotum (3) Penile edema: Code(s): N48.89 - Other specified disorders of penis Plan Unable to obtain urine for urinalysis PVR 112 mLs . Discussed plan of care with nursing at [facility] Discussed if able placement of sheikh catheter is recommended. Discussed importance of elevation in scrotum/penis Discussed and stressed the importance of changing every 1-2 hours or sooner if incontinent Hold bowel regimen as patient with ongoing diarrhea Discussed bladder scan Q shift to ensure and or assess for urinary retention Start amitriptyline and continue gabapentin at HS to assist with pruritus. Discussed, educated, and stressed the importance of seeking emergency room care if symptoms worsen and or patient unable to void Follow-up in one month; if not sooner with any issues, concerns, and or questions. Orders: Orders AMB Urinalysis Automated Today Z13.9 - Encounter for screening, unspecified AMB Post Void Residual by ultrasound Today N49.2 - Inflammatory disorders of scrotum Medications: New amitriptyline 25 mg PO BEDTIME 30 days 30 tabs 1RF N30.10 - Interstitial cystitis (chronic) without hematuria Patient Instructions: The patient had an opportunity to ask questions regarding the treatment plan. All questions were answered. Physical exam, labs, and imaging were discussed and reviewed in detail. As well as risks, benefits, and discussion of treatment choices. No major barriers to understanding were identified. The patient expressed understanding and agreement with the above treatment plan. The patient was made aware they should contact our office by phone for worsening of their current condition, the appearance of new symptoms, or with any questions or concerns. Compliance is encouraged with any medications and follow up testing that is ordered. It is a privilege to be allowed the opportunity to participate in? your urological care.? Again, if you have any questions or concerns If you have any questions or concerns please do not hesitate to contact me. The office is [phone]. This note is constructed using voice recognition software. While every effort has been made to ensure accuracy electrolytic de scaler errors may have been included. Yours sincerely, ELLA Lucio-HAZEL Coding Level of Care Code Est Pt Level 4 (85576) Diagnoses Genital warts A63.0 Cellulitis of scrotum N49.2 Penile edema N48.89 CPT Codes Post Residual Void - PVR CPT Code: 14598-Rrso Void Residual by ultrasound ([id number])
== END 2023-01-14 09:58 | disposition home or self-care (01) ==
LOC: HO.HUSH 09:14
PROVIDERS: PCP Hospitalist; Visit Provider Nurse Practitioner Family
DX: A63.0 Anogenital (venereal) warts (principal); N49.2 Inflammatory disorders of scrotum; N48.89 Other specified disorders of penis
CPT/HCPCS: 99214

== ENCOUNTER → 2023-01-14 09:14 | Outpatient (BNVA) | payer MEDICAID, SELFPAY | PROVIDERS: PCP Hospitalist; Visit Provider Nurse Practitioner Family | DX: A63.0 Anogenital (venereal) warts (principal); N49.2 Inflammatory disorders of scrotum; N48.89 Other specified disorders of penis | CPT/HCPCS: 51798; 99212 ==

== ENCOUNTER 2023-03-11 12:41 | Emergency (ER) | payer MEDICAID, SELFPAY ==
--- NOTE | ~2023-03-11 | CT_ITS ---
EXAMINATION: CT ABDOMEN AND PELVIS WITH CONTRAST CLINICAL INFORMATION: Abdominal distention, fever and diarrhea COMPARISON: Previous CT of the pelvis October 2022 TECHNIQUE: Multidetector volumetric images were obtained from the superior aspect of the liver through the pubic symphysis following administration 85 mL of Omnipaque 350 intravenous contrast. Sagittal and coronal reformatted images were obtained on the technologist's workstation. Oral contrast: Yes This CT examination was performed using dose optimization techniques as appropriate, variously including the following: *Automated exposure control *Adjustment of mA and/or kV according to patient size (this includes techniques or standardized protocols for targeted exams where dose is matched to indication/reason for exam; i.e. extremities or head) *Use of iterative reconstruction technique DLP: 593 mGy-cm FINDINGS: LUNG BASES: Bilateral pulmonary nodules, largest measuring 1.7 cm in the right lower lobe. Enlarged right retrocrural lymph node. Right-sided trace pleural effusion or thickening. LIVER, GALLBLADDER, AND BILIARY TREE: The liver is normal in size, shape, and attenuation. 5 x 10 mm low-attenuation lesion probably representing a cyst lateral segment of the left lobe of the liver. No biliary ductal dilatation is present. The gallbladder is unremarkable with no evidence of radiopaque gallstones, gallbladder wall thickening, or obvious pericholecystic inflammatory changes. PANCREAS: 4.5 x 6 cm partially calcified mass adjacent to versus in the posterior inferior tail of the pancreas versus primary left adrenal mass. SPLEEN: Unremarkable. ADRENAL GLANDS: Normal right adrenal gland. 4.5 x 6 cm partially calcified left adrenal mass versus pancreatic tail mass as described above. KIDNEYS AND URETERS: Moderate left hydronephrosis and proximal ureteral dilatation, question secondary to retroperitoneal lymphadenopathy. Left kidney is smaller than the right and there is left renal cortical thinning questionable long-standing obstruction. Normal right kidney. BLADDER: Diffuse bladder wall thickening. GASTROINTESTINAL TRACT: Severe constipation/obstipation. There is wall thickening of the distal sigmoid colon and rectum and stranding of the surrounding fat questionable for stercoral colitis related to chronic ABDOMINAL WALL: No significant hernia is appreciated. LYMPH NODES: Enlarged retroperitoneal lymph nodes in the abdomen and pelvis. Enlarged bilateral inguinal lymph nodes. Largest lymph node is a left upper abdominal periaortic lymph node at the level of the left renal hilum measuring 2 cm in short axis. VASCULAR: Normal caliber abdominal aorta. Question nonocclusive thrombus in the right common femoral and superficial femoral veins. PELVIC VISCERA: Scrotal edema and small varices are stable and not well delineated. OSSEOUS STRUCTURES: Degenerative changes of fracture or focal lesion. CT/CT abdomen pelvis w IV con IMPRESSION: Question left adrenal mass versus mass in the tail of the pancreas. Enlarged retroperitoneal lymph nodes in the abdomen and pelvis and bilateral inguinal regions. Multiple bilateral pulmonary nodules. Moderate left hydronephrosis, question secondary to retroperitoneal lymphadenopathy. Nonocclusive thrombus in the right common femoral and superficial femoral vein versus mass effect adenopathy. Follow-up ultrasound recommended. Diffuse bladder wall thickening. Severe constipation/obstipation and question secondary stercoral colitis from chronic constipation. Fleischner guidelines were followed.
--- NOTE | ~2023-03-11 | US_ITS ---
EXAMINATION: US VENOUS ULTRASOUND WITH DOPPLER LOWER EXTREMITY, RIGHT CLINICAL INFORMATION: Question DVT seen on CT scan COMPARISON: Abdominal pelvic CT scan from earlier in day TECHNIQUE: Ultrasound of the deep veins is performed from the hip to the calf with compression sonography and color and pulse Doppler assessment. Spectral analysis with color-flow imaging is performed. FINDINGS: There is normal venous compression and respiratory variation and augmented flow. The visualized common femoral vein, superficial femoral vein, profunda femoral vein, popliteal vein, and the trifurcation region shows no evidence of deep venous thrombosis. There is no significant popliteal fossa cyst. There are enlarged bilateral inguinal lymph nodes with abnormal ultrasound morphology and loss of central hilar flow. Largest lymph node measures 3.8 cm the right inguinal region. US/US venous duplex LE RT IMPRESSION: No DVT demonstrated in the right lower extremity. Enlarged abnormal appearing bilateral inguinal lymph nodes.
--- NOTE | ~2023-03-11 | XR_ITS ---
EXAMINATION: XR CHEST CLINICAL INFORMATION: Fever. Sepsis. COMPARISON: None available. TECHNIQUE: 2 views of the chest were obtained. FINDINGS: The cardiac and mediastinal contours are normal. The lungs are well-inflated. There is a 1 x 1.7 cm right base pulmonary nodule. The lungs are otherwise clear. No pleural effusion or pneumothorax. Degenerative changes of the spine. XR/XR chest 2V IMPRESSION: 1 x 1.7 cm right base pulmonary nodule. Follow-up chest CT recommended.
[2023-03-11 13:04] VITALS: BP 144/82; BP 99/52; PULSE 104; PULSE 98; RESP 18; TEMP 37.2; O2SAT 100; O2SAT 99; BMI 21.0
--- NOTE | 2023-03-11 13:36 | ECG_ITS ---
Test Reason : SEPTIC Blood Pressure : / mmHG Vent. Rate : 091 BPM Atrial Rate : 091 BPM P-R Int : 156 ms QRS Dur : 078 ms QT Int : 302 ms P-R-T Axes : 072 063 062 degrees QTc Int : 371 ms Normal sinus rhythm Normal ECG When compared with ECG of 19-NOV-2022 15:21, No significant change was found Referred By: Lenin Roldan Electronically Signed By:KAVON CAO
--- NOTE | 2023-03-11 13:43 | ED.GENADULT ---
HPI - General Adult General Chief complaint: Recheck/Abnormal Lab/Rx Stated complaint: ABN LABS FROM SNF PER EMS Time Seen by Provider: 03/11/23 13:22 Source: other ([place], [place] nurse by phone ) History of Present Illness HPI narrative: 62 years old presenting from [facility] long term, with past medical history of CAD, hypothyroidism, hyperlipidemia, fecal incontinence, dementia, baseline mostly not verbal but at times responding yes or no to basic questions, admitted in October for scrotal cellulitis which culture that grew staph epidermidis, presents to the emergency room for anemia. Patient underwent routine blood work according to long term staff and was found to have hemoglobin of 6.9. On arrival in the emergency room patient also was found to be febrile and having diarrhea however this seems to be a chronic issue although volume of stool according to long term as increased over the past week. Patient unable to provide any history and not verbal during my assessment. Does not appear in respiratory distress or discomfort. Per long term they deny episodes of melena or rectal bleeding. They report that patient scrotum as been intermittently swollen but never back to baseline since his admission. No significant changes. Patient has refused multiple times catheterization becoming not cooperative in long term. No history of falls Related Data Home Medications Medication Instructions Recorded Confirmed acetaminophen 325 mg capsule 650 mg PO Q4H PRN Pain 05/30/22 01/14/23 aspirin 81 mg tablet,delayed 81 mg PO DAILY 05/30/22 01/14/23 release bisacodyl 10 mg rectal suppository 10 mg [place] DAILY PRN Constipation 05/30/22 01/14/23 docusate sodium 100 mg capsule 100 mg PO DAILY 05/30/22 01/14/23 (Colace) ibuprofen 200 mg tablet (Motrin IB) 600 mg PO Q6H PRN Pain 05/30/22 01/14/23 isosorbide dinitrate 5 mg tablet 5 mg PO BID 05/30/22 01/14/23 chlorpromazine 25 mg tablet 50 mg PO BID 11/01/22 01/14/23 levothyroxine 75 mcg tablet 75 mcg PO DAILY@0600 11/18/22 01/14/23 multivitamin 1 tab PO DAILY 11/18/22 01/14/23 Previous Rx's Medication Instructions Recorded gabapentin 300 mg capsule 300 mg PO BEDTIME #30 caps 11/20/22 polyethylene glycol 3350 17 gram 17 g PO DAILY #30 ea 11/20/22 oral powder packet (Miralax) valacyclovir 500 mg tablet 500 mg PO DAILY #90 tabs 12/03/22 (Valtrex) amitriptyline 25 mg tablet 25 mg PO BEDTIME 30 days #30 tabs 01/14/23 doxycycline monohydrate 100 mg 100 mg PO BID #20 caps 03/11/23 capsule ferrous sulfate 325 mg (65 mg 325 mg PO BID #60 tabs 03/11/23 iron) tablet,delayed release Allergies Allergy/AdvReac Type Severity Reaction Status Date / Time SEAFOOD Allergy Severe SWELLING Uncoded 01/14/23 14:50 shell fish Allergy Unknown Unknown Uncoded 01/14/23 14:50 Review of Systems Review of Systems: Yes all other systems are reviewed and are negative PMFSH Past Medical History Onset Date is defined in the Problem List Problems that require an onset date and time if occurred within 24 hrs of arrival to the ED Aortic Dissection and Rupture; Neurologic impairment; Cardiopulmonary Arrest; Endotracheal Intubation; Insertion or Replacement of Mechanical Circulatory Assist Device Medical History Displaced fracture of distal phalanx of left ring finger, initial encounter for closed fracture Personal history of COVID-19 Age-related nuclear cataract, bilateral Osteoarthritis of hip, unspecified Dementia in other diseases classified elsewhere, unspecified severity, without behavioral disturbance, psychotic disturbance, mood disturbance, and anxiety Myopia, bilateral Full incontinence of feces Essential (primary) hypertension Dysphagia, unspecified Allergy to seafood Allergy, unspecified, initial encounter Unspecified urinary incontinence Hyperlipidemia, unspecified Hypothyroidism, unspecified Hx of thyroid disease Social History Social History Household Members: Unknown / Unable to assess Housing: Correction Unable to assess alcohol history related to: Unable to respond Alcohol intake: never Patient Tobacco Use Status: Tobacco use Unknown Advance Directives: No service: No Current occupational status: disabled 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 Normal Bowel sounds. Mild distention : Significant penile and scrotal swelling on the left side of the scrotum there is some ulceration with white discharge. Neuro: Alert, not cooperative with the exam, moving all 4 extremities, pupils normal and reactive to light Course Reevaluation(s) Reevaluation #1: Patient's CBC showed hemoglobin of 7.3, to my knowledge patient does not have any history of ACS therefore we will hold on transfusion at this time. Patient's lactic acid is 2.3 which may be secondary to infection however patient is being having increased diarrhea and so if these possible that a secondary to dehydration. Patient is currently receiving IV fluids. Will work up for anemia and fevr Time: 15:04 Reevaluation #2: Patient's blood work showed low iron, his lactic acid which was elevated on arrival normalized after IV fluids and patient has otherwise been stable, does not look toxic and at this time I think he has not septic, blood cultures are sent and are pending however considering the fact that from long term they told me that the scrotum is been swollen for a while and there is no new significant changes I doubt that this is the source of the infection. I think it is reasonable to start him on oral doxycycline for 10 days to cover for cellulitis, will also prescribe him iron tablet and recommend close follow-up with primary care doctor to repeat the H&H in 3 4 days. Would also recommend to return in case his symptoms worsen including increased lethargy, fever not responding to antibiotic, worsening shortness of breath or abdominal pain. Time: 17:36 Reevaluation #3: Patient's CT scan showed an adrenal mass which will recommend for patient to follow-up as an outpatient I do not think it requires emergent evaluation. There was also concern for possible right femoral vein DVT which was assessed with ultrasound which was negative for DVT. At this time patient has remained in the emergency room for several hours, has been hemodynamically stable and I do not think he requires admission. Will DC home Time: 19:19 Medications Administered Discontinued Medications Generic Name Dose Route Start Last Admin Trade Name Freq PRN Reason Stop Dose Admin Sodium Chloride 1,878 mls @ 1,878 mls/hr 03/11/23 13:36 03/11/23 15:03 Ns 30 ml/kg infuse over 1 hr (1878 ml) 03/11/23 14:35 1,878 mls/hr IVCONT Administration .Q1H ONE Piperacillin Sod/Tazobactam 100 mls @ 200 mls/hr 03/11/23 13:36 03/11/23 14:59 Sod 4.5 gm/ Sodium Chloride IV 03/11/23 14:05 200 mls/hr ONCE ONE Administration Iohexol 100 ml 03/11/23 16:22 03/11/23 16:22 Iohexol 350 Mg/Ml 100 Ml Infus..Btl IV 03/11/23 16:23 85 ml ONCE ONE Administration Medical Decision Making Medical Decision Making [facility] Narrative: Presented to the emergency room for low hemoglobin however during fetus assessment the patient was found to be mildly tachycardic with soft blood pressure. It is unclear what is the source of patient tachycardia, however is febrile and we will treat sepsis with fluid bolus and antibiotic. We will also get imaging of his chest, abdomen to rule out pneumonia or intra-abdominal source. Viral Syndrome is still possible.. It is possible that scrotum is the source of the fever however this is difficult to assess since it appears that there was no changing in swelling at least according to long term records. Admission/Observation Consideration of admission/observation: Escalation of care including admission/observation considered Lab Data [facility] Lab Attestation statement: I reviewed the patient's lab results. 03/11/23 14:17 03/11/23 14:17 Labs: Lab Results 03/11/23 03/11/23 03/11/23 Range/Units 14:17 15:06 16:56 WBC 10.9 H (4.8-10.8) X10*3/uL RBC 2.94 L (4.60-5.80) X10*6/uL Hgb 7.3 L (14.0-18.0) g/dl Hct 24.0 L (42.0-52.0) % MCV 81.6 (80.0-98.0) fL MCH 24.8 L (27.0-33.0) pg MCHC 30.4 L (31.0-36.0) g/dl RDW 16.8 H (11.0-16.0) % Plt Count 532 H D (160-400) X10*3/uL MPV 8.1 L (9.4-12.4) fL Immature Gran % (Auto) 0.5 H (0.0-0.4) % Neut % (Auto) 72.7 (45-73) % Lymph % (Auto) 11.7 L (20-40) % [place] % (Auto) 14.1 H (2-11) % Eos % (Auto) 0.9 (0-4) % Baso % (Auto) 0.1 (0-2) % Lymph # (Auto) 1.3 (1.2-4.9) X10*3/uL [place] # (Auto) 1.5 H (0.1-1.2) X10*3/uL Eos # (Auto) 0.1 (0.0-0.4) X10*3/uL Baso # (Auto) 0.0 (0.0-0.2) X10*3/uL Abs Immat Gran (auto) 0.05 H (0.00-0.03) X10*3/uL Absolute Neuts (auto) 7.9 (2.0-8.3) x10*3/uL Absolute Nucleated RBC 0.000 (0.0-0.012) X10*3/uL Nucleated RBC % (auto) 0.0 (0.0-0.2) /100WBC Smear Tech's Comments VERIFIED Sodium 138 (135-145) mmol/L Potassium 4.2 (3.3-5.1) mmol/L Chloride 100 (96-108) mmol/L Carbon Dioxide 29 (22-29) mmol/L Anion Gap 13 (12-20) BUN 17 H (9-16) mg/dL Creatinine 0.98 (0.5-1.4) mg/dL Estim Creat Clear Calc 67.4 Estimated GFR > 60 Random Glucose 106 (60-115) mg/dL Lactic Acid 2.3 H* (0.5-2.0) mmol/L Lactic Acid F/U @ 2Hr 1.2 (0.5-2.0) mmol/L Calcium 8.8 (8.4-10.2) mg/dL Iron 10 L (45-160) mcg/dL TIBC 178 L (228-428) mcg/dL % Saturation 6 L (15-50) % Unsat Iron Binding 168 ug/dL Ferritin 80 (20-250) ng/mL Vitamin B12 373 (200-900) pg/mL Folate 9.1 (> or = 4.0) ng/mL Stool Occult Blood NEGATIVE (NEGATIVE) Influenza Type A (PCR) NEGATIVE (Negative) Influenza Type B (PCR) NEGATIVE (Negative) RSV RNA Qual (PCR) NEGATIVE (Negative) SARS-CoV-2 RNA (RT-PCR) NEGATIVE (Negative) Independent Interpretation I performed an independent interpretation of an: EKG and CT Scan (constipation) Discharge Plan Discharge Clinical Impression: Anemia Patient Disposition: Home, Self-Care Additional Instructions: Patient was seen in emergency room for anemia. Repeated blood work showed a hemoglobin of 7.3 which at this time does not require emergent transfusion. He is lab work is consistent with iron deficiency anemia for which I sent the prescription for ferrous sulfate to take twice a day for the next 2 weeks. It is important to repeat CBC in a week to make sure hemoglobin is improving. Patient was also found to be febrile, the source of the fever at this time is unclear possibly from scrotal cellulitis for which I prescribed a course of doxycycline which the patient can start tomorrow. Bring the patient back to the emergency room in case he develops fever again despite antibiotic or if he becomes more lethargic or short of breath. Incidental CT findings to Follow up with PCP Question left adrenal mass versus mass in the tail of the pancreas. Enlarged retroperitoneal lymph nodes in the abdomen and pelvis and bilateral inguinal regions. Multiple bilateral pulmonary nodules. Moderate left hydronephrosis, question secondary to retroperitoneal lymphadenopathy. Nonocclusive thrombus in the right common femoral and superficial femoral vein versus mass effect adenopathy. Follow-up ultrasound recommended. Diffuse bladder wall thickening. Severe constipation/obstipation and question secondary stercoral colitis from chronic constipation. US did not show any DVT Prescriptions: New ferrous sulfate 325 mg (65 mg iron) tablet,delayed release (DR/EC) 325 mg PO BID Qty: 60 0RF doxycycline monohydrate 100 mg capsule 100 mg PO BID Qty: 20 0RF No Action multivitamin Tablet 1 tab PO DAILY levothyroxine 75 mcg Tablet 75 mcg PO DAILY@0600 gabapentin 300 mg Capsule 300 mg PO BEDTIME Qty: 30 0RF polyethylene glycol 3350 [Miralax] 17 gram powder in packet 17 g PO DAILY Qty: 30 0RF valacyclovir [Valtrex] 500 mg tablet 500 mg PO DAILY Qty: 90 0RF Rx Instructions: to be taken after 10 days of acute treatment for the rest of his life acetaminophen 325 mg capsule 650 mg PO Q4H PRN (Reason: Pain) aspirin 81 mg tablet,delayed release (DR/EC) 81 mg PO DAILY bisacodyl 10 mg suppository 10 mg [place] DAILY PRN (Reason: Constipation) docusate sodium [Colace] 100 mg capsule 100 mg PO DAILY isosorbide dinitrate 5 mg tablet 5 mg PO BID Rx Instructions: allow nitrate-free interval of 12-14 hrs per 24-hr period ibuprofen [Motrin IB] 200 mg tablet 600 mg PO Q6H PRN (Reason: Pain) chlorpromazine 25 mg tablet 50 mg PO BID amitriptyline 25 mg tablet 25 mg PO BEDTIME 30 Days Qty: 30 1RF
[2023-03-11 14:29] LABS: Basophils Percent Auto 0.1 % (0-2); Eosinophils Absolute Auto 0.1 X10*3/uL (0.0-0.4); Eosinophils Percent Auto 0.9 % (0-4); Hemoglobin 7.3 g/dl (14.0-18.0); Imm Gran Abs Auto 0.05 X10*3/uL (0.00-0.03); Imm Gran Pct Auto 0.5 % (0.0-0.4); Lymphocytes Absolute Auto 1.3 X10*3/uL (1.2-4.9); Lymphocytes Percent Auto 11.7 % (20-40); MANUAL DIFF FLAG SCAN; Mean Corpuscular HGB Conc 30.4 g/dl (31.0-36.0); Mean Corpuscular Hemoglobin 24.8 pg (27.0-33.0); Mean Corpuscular Volume 81.6 fL (80.0-98.0); Mean Platelet Volume 8.1 fL (9.4-12.4); Monocytes Absolute Auto 1.5 X10*3/uL (0.1-1.2); Monocytes Percent Auto 14.1 % (2-11); Neutrophils Absolute Auto 7.9 x10*3/uL (2.0-8.3); Neutrophils Percent Auto 72.7 % (45-73); Red Blood Count 2.94 X10*6/uL (4.60-5.80); Red Cell Distribution Width 16.8 % (11.0-16.0); SCAN SMEAR FLAG 1; White Blood Count 10.9 X10*3/uL (4.8-10.8)
[2023-03-11 14:44] LABS: Lactic Acid 2.3 mmol/L (0.5-2.0)
[2023-03-11 14:51] LABS: Anion Gap 13 (12-20); Blood Urea Nitrogen 17 mg/dL (9-16); Calcium 8.8 mg/dL (8.4-10.2); Carbon Dioxide 29 mmol/L (22-29); Chloride 100 mmol/L (96-108); Creatinine Clr Calc Pharmacy 67.4; Estimated Glomerular Filt Rate > 60; Glucose Random 106 mg/dL (60-115); Iron 10 mcg/dL (45-160); Percent Iron Saturation 6 % (15-50); Potassium 4.2 mmol/L (3.3-5.1); Sodium 138 mmol/L (135-145); Total Iron Binding Capacity 178 mcg/dL (228-428); Unsaturated Iron Binding 168 ug/dL
[2023-03-11 14:59] LABS: Platelet Count 532 X10*3/uL (160-400); SLIDE REVIEW VERIFIED
[2023-03-11] MEDS: Piperacillin Sodium/Tazobactam 4.5 GM in 0.9 % Sodium Chloride 100 ML IV (14:59)
[2023-03-11 15:05] LABS: Influenza A PCR NEGATIVE (Negative); Influenza B PCR NEGATIVE (Negative); Resp Syncy Virus RNA Qual PCR NEGATIVE (Negative); SARS COV2 PCR INHOUSE NEGATIVE (Negative)
[2023-03-11 15:06] LABS: Ferritin 80 ng/mL (20-250)
[2023-03-11 15:15] LABS: OBS Int Ctl Valid YES; OBS1 NEGATIVE (NEGATIVE)
[2023-03-11 15:20] LABS: Folate 9.1 ng/mL (> or = 4.0); Vitamin B12 373 pg/mL (200-900)
[2023-03-11] MEDS: iohexoL 350 MG/ML 100 ML INFUS..BTL IV (16:22)
[2023-03-11 16:23] LABS: Reflex Lactate? Lactic Acid Added
[2023-03-11 17:11] LABS: ~Lactic Acid-LAB USE ONLY 1.2 mmol/L (0.5-2.0)
[2023-03-11 19:22] VITALS: BP 109/47; PULSE 90; RESP 16; TEMP 37.5; O2SAT 99
--- NOTE | 2023-03-11 19:24 | MHC.EDTECH ---
Patient inc therefore patient changed and repositioned
--- NOTE | 2023-03-11 19:49 | MHC.EDTECH ---
Khadra booked at 1949.
== END 2023-03-11 21:26 | disposition home or self-care (01) ==
PROVIDERS: Emergency Provider Student in an Organized Health Care Education/Training Program; PCP Hospitalist
DX: D64.9 Anemia, unspecified (principal); R79.89 Other specified abnormal findings of blood chemistry; R60.0 Localized edema; R14.0 Abdominal distension (gaseous); R50.9 Fever, unspecified; R94.31 Abnormal electrocardiogram [ECG] [EKG]; Z20.828 Contact with and (suspected) exposure to other viral communicable diseases; Z20.822 Contact with and (suspected) exposure to COVID-19; Z79.899 Other long term (current) drug therapy
CPT/HCPCS: 0241U; 36415; 71046; 74177; 80048; 82272; 82607; 82728; 82746; 83540; 83605; 85025; 87040; 93005; 93971; 96374; 99284; J2543; Q9967

== ENCOUNTER → 2023-03-11 13:36 | Outpatient (BNV) | payer MEDICAID, SELFPAY | PROVIDERS: Emergency Provider Student in an Organized Health Care Education/Training Program; PCP Hospitalist; Visit Provider Internal Medicine | DX: A41.9 Sepsis, unspecified organism (principal) | CPT/HCPCS: 93010 ==

== ENCOUNTER 2023-05-23 13:42 | Outpatient (AMB) | payer MEDICAID, SELFPAY ==
--- NOTE | 2023-05-23 13:45 | MHC.OFFVIS ---
Intake Intake Visit Reasons: F/U PVR Intake Note: Patient presents today for a follow up on: PVR Meds- None Allergies to Antibiotic- No Known Allergies Blood Thinner- Aspirin Post Void Residual: 69ml Patient Symptoms: Patient was not too verbal today. 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 Accompanied by: [employer] [facility] [place] Employee Allergies SEAFOOD Allergy (Severe, Uncoded 05/23/23 14:23) SWELLING shell fish Allergy (Unknown, Uncoded 05/23/23 14:23) Unknown Medication List - Last Reconciled 05/23/23 by ELLA Lucio-HAZEL acetaminophen 650 mg PO Q4H PRN amitriptyline 25 mg PO BEDTIME 30 days aspirin 81 mg PO DAILY bisacodyl 10 mg [place] DAILY PRN chlorpromazine 50 mg PO BID docusate sodium (Colace) 100 mg PO DAILY ferrous sulfate 325 mg PO BID gabapentin 300 mg PO BEDTIME gabapentin 300 mg PO BEDTIME ibuprofen (Motrin IB) 600 mg PO Q6H PRN isosorbide dinitrate 5 mg PO BID levothyroxine 75 mcg PO DAILY@0600 multivitamin 1 tab PO DAILY naloxone 0.4 mg subcut Q3M PRN oxycodone 10 mg PO Q4-6H PRN polyethylene glycol 3350 (Miralax) 17 grams PO DAILY sennosides (senna) 8.6 mg PO DAILY valacyclovir (Valtrex) 500 mg PO DAILY HPI HPI Comments History of Present Illness Details Barrie is a 62-year-old male patient of Dr. Kaur who resides at [facility] here at [place]. He is accompanied by one of the care attendants from [facility]. He is mainly nonverbal however at times will answer yes or no questions. He has a past medical history of atherosclerotic heart disease, hypothyroidism, hyperlipidemia, urinary incontinence, dysphagia, hypertension, cataracts, osteoarthritis, and dementia. He presents to the office today for a follow up of his scrotal cellulitis and penile edema. In assessment of the patient today there is significant penile edema with mild scrotal edema. There is a cluster of bumps throughout the scrotal area that appear bumpy and cauliflower like. There are areas throughout the scrotum that are weeping scant blood. In discussion with Serene on the [place] unit at [facility] it appears petition is in process to change patient's code status as he has had recent imaging at [facility] with potential for metastatic cancer. Discussed at length importance of keeping scrotum and penis area dry as well as elevated when possible. She discusses noting improvement in scrotum and penis when patient was allowing staff to take care of him. Patient at times can be difficult and will not allow staff to assist with hygiene. Unable to obtain urine for urinalysis however PVR 69ml's. Discussed importance of ensuring patient is urinating and not retaining urine. Patient with a history of admission to [facility] for this exact issue at which time he was given antibiotics. Discussed seeking medical treatment if symptoms worsen. In review of patient's chart it appears most recent CT with question left adrenal mass versus mass in the tail of the pancreas. Enlarged retroperitoneal lymph nodes in the abdomen and pelvis and bilateral inguinal regions. Moderate left hydronephrosis, question secondary to retroperitoneal lymphadenopathy. Diffuse bladder wall thickening. Severe constipation/obstipation and question secondary stercoral colitis from chronic constipation. BUN--11/17 14, 11/17 14, 11/17 9, 12/17 17, 03/20 17 Creatinine-- 11/17 0.83, 11/17 0.79, 11/17 0.82, 12/17 0.82, 03/20 0.98 [facility] Medical History Displaced fracture of distal phalanx of left ring finger, initial encounter for closed fracture Personal history of COVID-19 Age-related nuclear cataract, bilateral Osteoarthritis of hip, unspecified Dementia in other diseases classified elsewhere, unspecified severity, without behavioral disturbance, psychotic disturbance, mood disturbance, and anxiety Myopia, bilateral Full incontinence of feces Essential (primary) hypertension Dysphagia, unspecified Allergy to seafood Allergy, unspecified, initial encounter Unspecified urinary incontinence Hyperlipidemia, unspecified Hypothyroidism, unspecified Hx of thyroid disease Social History Household Members: Unknown / Unable to assess Housing: [facility] Unable to assess alcohol history related to: Unable to respond Alcohol intake: never Patient Tobacco Use Status: Tobacco use Unknown service: No Current occupational status: disabled 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 Review of Systems Const Reports as per HPI Eyes Reports as per HPI ENT Reports no additional complaints Card Reports as per HPI GI Reports no additional complaints Reports as per HPI Musc Reports as per HPI Neuro Reports as per HPI Psych Reports as per HPI Endo Reports as per HPI Physical Exam Const General: cooperative, comfortable, no acute distress, well developed, alert and awake Orientation/consciousness: Other orientation findings (nonverbal; makes eye contact when calling his name ) HEENT Head: Yes normal to inspection, Yes normocephalic and Yes atraumatic Neck Neck: Yes normal visual inspection and Yes trachea midline Chest Chest palpation & inspection: normal inspection of the chest Resp Effort & Inspection: normal respiratory effort Cardio Rhythm: regular rhythm GI Inspection: Yes normal to inspection Male General Exam: Yes other (as per HPI) Psych Attitude: Guarded attititude/behavior present and Avoids eye contact (attititude/behavior) Insight: Limited insight present (Psych) Judgement: Limited judgement present (Psych) Office Procedures Post Void Residual Post Residual Void Post Void Residual (PVR): 69 [id number] Void Residual by ultrasound Results Reviewed Results Reviewed: Date of Service: 03/11/23 Procedure(s): CT abdomen pelvis w IV con EXAMINATION: FINDINGS: LUNG BASES: Bilateral pulmonary nodules, largest measuring 1.7 cm in the right lower lobe. Enlarged right retrocrural lymph node. Right-sided trace pleural effusion or thickening. LIVER, GALLBLADDER, AND BILIARY TREE: The liver is normal in size, shape, and attenuation. 5 x 10 mm low-attenuation lesion probably representing a cyst lateral segment of the left lobe of the liver. No biliary ductal dilatation is present. The gallbladder is unremarkable with no evidence of radiopaque gallstones, gallbladder wall thickening, or obvious pericholecystic inflammatory changes. PANCREAS: 4.5 x 6 cm partially calcified mass adjacent to versus in the posterior inferior tail of the pancreas versus primary left adrenal mass. SPLEEN: Unremarkable. ADRENAL GLANDS: Normal right adrenal gland. 4.5 x 6 cm partially calcified left adrenal mass versus pancreatic tail mass as described above. KIDNEYS AND URETERS: Moderate left hydronephrosis and proximal ureteral dilatation, question secondary to retroperitoneal lymphadenopathy. Left kidney is smaller than the right and there is left renal cortical thinning questionable long-standing obstruction. Normal right kidney. BLADDER: Diffuse bladder wall thickening. GASTROINTESTINAL TRACT: Severe constipation/obstipation. There is wall thickening of the distal sigmoid colon and rectum and stranding of the surrounding fat questionable for stercoral colitis related to chronic ABDOMINAL WALL: No significant hernia is appreciated. LYMPH NODES: Enlarged retroperitoneal lymph nodes in the abdomen and pelvis. Enlarged bilateral inguinal lymph nodes. Largest lymph node is a left upper abdominal periaortic lymph node at the level of the left renal hilum measuring 2 cm in short axis. VASCULAR: Normal caliber abdominal aorta. Question nonocclusive thrombus in the right common femoral and superficial femoral veins. PELVIC VISCERA: Scrotal edema and small varices are stable and not well delineated. OSSEOUS STRUCTURES: Degenerative changes of fracture or focal lesion. IMPRESSION: Question left adrenal mass versus mass in the tail of the pancreas. Enlarged retroperitoneal lymph nodes in the abdomen and pelvis and bilateral inguinal regions. Multiple bilateral pulmonary nodules. Moderate left hydronephrosis, question secondary to retroperitoneal lymphadenopathy. Nonocclusive thrombus in the right common femoral and superficial femoral vein versus mass effect adenopathy. Follow-up ultrasound recommended. Diffuse bladder wall thickening. Severe constipation/obstipation and question secondary stercoral colitis from chronic constipation. Assessment & Plan Assessment & Plan (1) Genital warts: Code(s): A63.0 - Anogenital (venereal) warts (2) Cellulitis of scrotum: Code(s): N49.2 - Inflammatory disorders of scrotum (3) Penile edema: Code(s): N48.89 - Other specified disorders of penis Plan Unable to obtain urine for urinalysis PVR 69 mLs . Discussed plan of care with nursing at [facility] as noted above. Discussed importance of elevation in scrotum/penis Discussed and stressed the importance of changing every 1-2 hours or sooner if incontinent Discussed bladder scan Q shift to ensure and or assess for urinary retention Continue amitriptyline and gabapentin at HS to assist with pruritus. Discussed applying inter dry to groin area. Discussed possible referral to wound care for further assessment and evaluation. Discussed applying thin layer of aquaphor to scrotum. Discussed, educated, and stressed the importance of seeking emergency room care if symptoms worsen and or patient unable to void. Discussed further hydronephrosis workup with Nuclear Renal Scan. Follow-up in 1-3 months; if not sooner with any issues, concerns, and or questions. Orders: Orders AMB Post Void Residual by ultrasound Today R33.9 - Retention of urine, unspecified Medications: Discontinued doxycycline monohydrate Discontinued Reason: Doctor's Order 100 mg PO BID 20 caps 0RF Patient Instructions: The patient had an opportunity to ask questions regarding the treatment plan. All questions were answered. Physical exam, labs, and imaging were discussed and reviewed in detail. As well as risks, benefits, and discussion of treatment choices. No major barriers to understanding were identified. The patient expressed understanding and agreement with the above treatment plan. The patient was made aware they should contact our office by phone for worsening of their current condition, the appearance of new symptoms, or with any questions or concerns. Compliance is encouraged with any medications and follow up testing that is ordered. It is a privilege to be allowed the opportunity to participate in? your urological care.? Again, if you have any questions or concerns If you have any questions or concerns please do not hesitate to contact me. The office is [phone]. This note is constructed using voice recognition software. While every effort has been made to ensure accuracy surveyor rod helper errors may have been included. Yours sincerely, MAMI Lucio Coding Level of Care Code Est Pt Level 4 (18851) Diagnoses Genital warts A63.0 Cellulitis of scrotum N49.2 Penile edema N48.89 CPT Codes Post Residual Void - PVR CPT Code: 75517-Ivan Void Residual by ultrasound ([id number]) Time Spent (min) 30
== END 2023-05-23 14:16 | disposition home or self-care (01) ==
PROVIDERS: PCP Hospitalist; Visit Provider Nurse Practitioner Family
DX: A63.0 Anogenital (venereal) warts (principal); N49.2 Inflammatory disorders of scrotum; N48.89 Other specified disorders of penis
CPT/HCPCS: 99214

== ENCOUNTER → 2023-05-23 13:42 | Outpatient (BNVA) | payer MEDICAID, SELFPAY | PROVIDERS: PCP Hospitalist; Visit Provider Nurse Practitioner Family | DX: N49.2 Inflammatory disorders of scrotum (principal); N48.89 Other specified disorders of penis; A63.0 Anogenital (venereal) warts | CPT/HCPCS: 51798; 99212 ==

== ENCOUNTER 2023-08-21 11:08 | Outpatient (AMB) | payer MEDICAID, SELFPAY ==
--- NOTE | 2023-08-21 11:18 | A.OFFVIS_ITS ---
Intake Visit Reasons: 3 month follow up Intake Note: Patient presents today for a follow up on: penile edema Urology Medications: None Allergies to Antibiotic: No Known Allergies Blood Thinner: Aspirin Post Void Residual: 114ml's Shot Polisher Required: No Accompanied by: [employer] [facility] Employee Allergies SEAFOOD Allergy (Severe, Uncoded 08/21/23 13:19) SWELLING shell fish Allergy (Unknown, Uncoded 08/21/23 13:19) Unknown Medication List - Last Reconciled 08/21/23 by MAMI Lucio acetaminophen 650 mg PO Q4H PRN amitriptyline 25 mg PO BEDTIME 30 days aspirin 81 mg PO DAILY bisacodyl 10 mg MI DAILY PRN chlorpromazine 50 mg PO BID docusate sodium (Colace) 100 mg PO DAILY ferrous sulfate 325 mg PO BID gabapentin 300 mg PO BEDTIME gabapentin 300 mg PO BEDTIME ibuprofen (Motrin IB) 600 mg PO Q6H PRN isosorbide dinitrate 5 mg PO BID levothyroxine 75 mcg PO DAILY@0600 multivitamin 1 tab PO DAILY naloxone 0.4 mg subcut Q3M PRN oxycodone 10 mg PO Q4-6H PRN polyethylene glycol 3350 (Miralax) 17 grams PO DAILY sennosides (senna) 8.6 mg PO DAILY valacyclovir (Valtrex) 500 mg PO DAILY HPI Comments Details: Barrie is a 63-year-old male patient of Dr. Kaur who resides at [facility]. He is accompanied by one of the care attendants Suri from [facility]. He is mainly nonverbal. He has a past medical history of atherosclerotic heart disease, hypothyroidism, hyperlipidemia, urinary incontinence, dysphagia, hypertension, cataracts, osteoarthritis, and dementia. He presents to the office today for a follow up of his scrotal cellulitis, penile edema and genital warts. In assessment of the patient today there is significant/severe penile edema. There is full-thickness maceration throughout his penile foreskin, scrotum, and perineum. There is a cluster of bumps throughout the scrotal area that appear bumpy and cauliflower like. There are areas throughout the scrotum that are weeping scant blood. Dr. Osei in to help assist with sheikh insertion however call to [facility] to discuss plan of care and patient with a previous history of Sheikh insertions with self removal multiple times. Discussed plan of care with Omar jaramillo's nurse for the day as well as [facility] community health representative. It appears patient with history of colon cancer and has lost a significant amount of weight just within this past month. Discussed suprapubic tube placement for healing of area as it appears patient is completely incontinent of stool and urine. Linda discusses patient is undergoing wound management at the facility. And patient's PCP has increased Valtrex. Discussed at length importance of keeping scrotum and penis area dry as well as elevated when possible. Patient at times can be difficult and will not allow staff to assist with hygiene. Unable to obtain urine for urinalysis however PVR 114ml's. Discussed importance of ensuring patient is urinating and not retaining urine. Patient with a history of admission to [facility] for this exact issue at which time he was given antibiotics. Discussed seeking medical treatment if symptoms worsen. In review of patient's chart it appears most recent CT with question left adrenal mass versus mass in the tail of the pancreas. Enlarged retroperitoneal lymph nodes in the abdomen and pelvis and bilateral inguinal regions. Moderate left hydronephrosis, question secondary to retroperitoneal lymphadenopathy. Diffuse bladder wall thickening. Severe constipation/obstipation and question secondary stercoral colitis from chronic constipation. BUN--11/17 14, 11/17 14, 11/17 9, 12/17 17, 03/20 17 Creatinine-- 11/17 0.83, 11/17 0.79, 11/17 0.82, 12/17 0.82, 03/20 0.98 [facility] Medical History Displaced fracture of distal phalanx of left ring finger, initial encounter for closed fracture Personal history of COVID-19 Age-related nuclear cataract, bilateral Osteoarthritis of hip, unspecified Dementia in other diseases classified elsewhere, unspecified severity, without behavioral disturbance, psychotic disturbance, mood disturbance, and anxiety Myopia, bilateral Full incontinence of feces Essential (primary) hypertension Dysphagia, unspecified Allergy to seafood Allergy, unspecified, initial encounter Unspecified urinary incontinence Hyperlipidemia, unspecified Hypothyroidism, unspecified Hx of thyroid disease Social History Household Members: Unknown / Unable to assess Housing: Correction Unable to assess alcohol history related to: Unable to respond Alcohol intake: never Patient Tobacco Use Status: Tobacco use Unknown service: No Current occupational status: disabled 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 Review of Systems Const Reports as per [facility] Eyes Reports as per HPI ENT Reports no additional complaints Card Reports as per HPI GI Reports no additional complaints Reports as per HPI Musc Reports as per HPI Neuro Reports as per HPI Psych Reports as per HPI Endo Reports as per HPI Physical Exam Const General: cooperative, comfortable, no acute distress, well developed, alert and awake Orientation/consciousness: Other orientation findings (nonverbal; makes eye contact when calling his name ) Limitations: wheelchair HEENT Head: Yes normal to inspection, Yes normocephalic and Yes atraumatic Neck Neck: Yes normal visual inspection and Yes trachea midline Chest Chest palpation & inspection: normal inspection of the chest Resp Effort & Inspection: normal respiratory effort Cardio Rhythm: regular rhythm GI Inspection: Yes normal to inspection Male General Exam: Yes other (as per HPI) Psych Attitude: Guarded attititude/behavior present and Avoids eye contact (attititude /behavior) Insight: Limited insight present (Psych) Judgement: Limited judgement present (Psych) Assessment & Plan Assessment & Plan (1) Cellulitis of scrotum: Code(s): N49.2 - Inflammatory disorders of scrotum Category: Medical (2) Genital warts: Code(s): A63.0 - Anogenital (venereal) warts Category: Medical (3) Penile edema: Code(s): N48.89 - Other specified disorders of penis Category: Medical Plan Unable to obtain urine for urinalysis PVR 114ml's Attempted to place indwelling Sheikh catheter however in office procedure was aborted as patient with a history of self removal of indwelling Sheikh catheters. Discussed plan of care with nursing/community health representative at [facility] as noted above. ([phone]) Discussed importance of elevation in scrotum/penis Discussed and stressed the importance of changing every 1-2 hours or sooner if incontinent Discussed bladder scan Q shift to ensure and or assess for urinary retention Continue with wound care at facility. Discussed, educated, and stressed the importance of seeking emergency room care if symptoms worsen and or patient unable to void. Plan is to have meeting with (patients guardian, PCP, community health representative and maintenance director) to further assess hospice/comfort measures. Will schedule for suprapubic tube placement. Patient Instructions: The patient had an opportunity to ask questions regarding the treatment plan. All questions were answered. Physical exam, labs, and imaging were discussed and reviewed in detail. As well as risks, benefits, and discussion of treatment choices. No major barriers to understanding were identified. The patient expressed understanding and agreement with the above treatment plan. The patient was made aware they should contact our office by phone for worsening of their current condition, the appearance of new symptoms, or with any questions or concerns. Compliance is encouraged with any medications and follow up testing that is ordered. It is a privilege to be allowed the opportunity to participate in? your urological care.? Again, if you have any questions or concerns If you have any questions or concerns please do not hesitate to contact me. The office is [phone]. This note is constructed using voice recognition software. While every effort has been made to ensure accuracy grain wafer machine operator errors may have been included. Yours sincerely, MAMI Lucio Coding Level of Care Code Est Pt Level 4 (44883) Complex EM visit Add On G2211 Diagnoses Cellulitis of scrotum N49.2 Genital warts A63.0 Penile edema N48.89
== END 2023-08-21 12:36 | disposition home or self-care (01) ==
PROVIDERS: PCP Hospitalist; Visit Provider Nurse Practitioner Family
DX: N49.2 Inflammatory disorders of scrotum (principal); A63.0 Anogenital (venereal) warts; N48.89 Other specified disorders of penis
CPT/HCPCS: 99214; G2211

== ENCOUNTER → 2023-08-21 11:08 | Outpatient (BNVA) | payer MEDICARE, MEDICAID, SELFPAY | PROVIDERS: PCP Hospitalist; Visit Provider Nurse Practitioner Family | DX: N49.2 Inflammatory disorders of scrotum (principal); N48.89 Other specified disorders of penis; A63.0 Anogenital (venereal) warts | CPT/HCPCS: 99212 ==

== ENCOUNTER 2023-09-10 16:14 | Emergency (ER) | payer MEDICARE, MEDICAID, SELFPAY ==
[2023-09-10 16:28] VITALS: BP 115/70; PULSE 110; O2SAT 99
[2023-09-10 16:47] VITALS: BP 116/71; PULSE 106; RESP 16; TEMP 36.6; O2SAT 99; BMI 17.3
[2023-09-10 16:54] LABS: MANUAL DIFF FLAG NO
[2023-09-10 16:56] LABS: Basophils Percent Auto 0.2 % (0-2); Eosinophils Absolute Auto 0.2 X10*3/uL (0.0-0.4); Eosinophils Percent Auto 1.5 % (0-4); Hematocrit 23.4 % (42.0-52.0); Hemoglobin 7.2 g/dl (14.0-18.0); Imm Gran Abs Auto 0.06 X10*3/uL (0.00-0.03); Imm Gran Pct Auto 0.6 % (0.0-0.4); Lymphocytes Percent Auto 10.1 % (20-40); Mean Corpuscular HGB Conc 30.8 g/dl (31.0-36.0); Mean Corpuscular Hemoglobin 23.9 pg (27.0-33.0); Mean Corpuscular Volume 77.7 fL (80.0-98.0); Mean Platelet Volume 8.1 fL (9.4-12.4); Monocytes Absolute Auto 0.9 X10*3/uL (0.1-1.2); Monocytes Percent Auto 9.2 % (2-11); Neutrophils Absolute Auto 7.8 x10*3/uL (2.0-8.3); Neutrophils Percent Auto 78.4 % (45-73); Platelet Count 493 X10*3/uL (160-400); Red Blood Count 3.01 X10*6/uL (4.60-5.80); Red Cell Distribution Width 19.4 % (11.0-16.0); White Blood Count 9.9 X10*3/uL (4.8-10.8)
--- NOTE | 2023-09-10 16:56 | ED.GENADULT ---
HPI - General Adult General Chief complaint: Recheck/Abnormal Lab/Rx Stated complaint: from snf, abnormal labs, hemoglobin 6.6 Time Seen by Provider: 09/10/23 16:44 Source: EMS Mode of arrival: EMS Limitations: other (Advanced dementia) History of Present Illness ED Provider: Dr. Ana García HPI narrative: Patient comes to the emergency room via ambulance from [facility]. According to his caretakers, routine lab work was done this morning and showed a hemoglobin of 6.6. Patient has had anemia in the past and blood transfusions. At this time, patient is awake, alert, but not talking at all. Related Data Home Medications ?Medication ?Instructions ?Recorded ?Confirmed acetaminophen 325 mg capsule 650 mg PO Q4H PRN Pain 05/30/22 01/14/23 aspirin 81 mg tablet,delayed 81 mg PO DAILY 05/30/22 01/14/23 release bisacodyl 10 mg rectal suppository 10 mg OR DAILY PRN Constipation 05/30/22 01/14/23 docusate sodium 100 mg capsule 100 mg PO DAILY 05/30/22 01/14/23 (Colace) ibuprofen 200 mg tablet (Motrin IB) 600 mg PO Q6H PRN Pain 05/30/22 01/14/23 isosorbide dinitrate 5 mg tablet 5 mg PO BID 05/30/22 01/14/23 chlorpromazine 25 mg tablet 50 mg PO BID 11/01/22 01/14/23 levothyroxine 75 mcg tablet 75 mcg PO DAILY@0600 11/18/22 01/14/23 multivitamin 1 tab PO DAILY 11/18/22 01/14/23 gabapentin 300 mg capsule 300 mg PO BEDTIME 05/23/23 naloxone 0.4 mg/mL injection 0.4 mg subcut Q3M PRN 05/23/23 solution oxycodone 10 mg/0.5 mL oral 10 mg PO Q4-6H PRN 05/23/23 syringe (FOR ORAL USE ONLY) sennosides 8.6 mg tablet (senna) 8.6 mg PO DAILY 05/23/23 Previous Rx's ?Medication ?Instructions ?Recorded gabapentin 300 mg capsule 300 mg PO BEDTIME #30 caps 11/20/22 polyethylene glycol 3350 17 gram 17 g PO DAILY #30 ea 11/20/22 oral powder packet (Miralax) valacyclovir 500 mg tablet 500 mg PO DAILY #90 tabs 12/03/22 (Valtrex) amitriptyline 25 mg tablet 25 mg PO BEDTIME 30 days #30 tabs 01/14/23 ferrous sulfate 325 mg (65 mg 325 mg PO BID #60 tabs 03/11/23 iron) tablet,delayed release miconazole nitrate 2 % topical 1 appl topical BID #42.5 grams 09/10/23 cream Allergies Allergy/AdvReac Type Severity Reaction Status Date / Time seafood Allergy Swelling Verified 09/10/23 16:58 shellfish derived Allergy Unknown Verified 09/10/23 16:58 SEAFOOD Allergy Severe SWELLING Uncoded 08/21/23 13:19 shell fish Allergy Unknown Unknown Uncoded 09/10/23 16:58 Review of Systems Review of Systems: Yes Unobtainable due to mental condition [facility] Past Medical History Medical History Displaced fracture of distal phalanx of left ring finger, initial encounter for closed fracture Personal history of COVID-19 Age-related nuclear cataract, bilateral Osteoarthritis of hip, unspecified Dementia in other diseases classified elsewhere, unspecified severity, without behavioral disturbance, psychotic disturbance, mood disturbance, and anxiety Myopia, bilateral Full incontinence of feces Essential (primary) hypertension Dysphagia, unspecified Allergy to seafood Allergy, unspecified, initial encounter Unspecified urinary incontinence Hyperlipidemia, unspecified Hypothyroidism, unspecified Hx of thyroid disease Social History Social History Household Members: Unknown / Unable to assess Housing: Retirement Unable to assess alcohol history related to: Refusing to respond Alcohol intake: never Patient Tobacco Use Status: Tobacco use Unknown Advance Directives: No Advance Directives Information Provided: No Do you have a plan to hurt others: No Plan service: No Current occupational status: disabled 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 Does not seem to be in acute distress, cachectic Eyes: Pupils equal, round and reactive to light. ENT: Pharynx normal. Neck: Normal inspection. Neck supple. No lymph nodes noted. No crepitus CVS: Normal heart rate and rhythm. Pulses normal. Normal S1 and S2 Respiratory: No respiratory distress. Breath sounds normal. No Wheezing. No rales Abdomen: Soft and nontender. No rigidity. No distention. Has reducible small hernias in the abdominal wall, patient does not seem to be in pain Skin: Skin warm and dry. Normal skin color. Normal skin turgor. Extremities: No lower extremity edema. No Lacerations. No Rash Neuro: Unable to participating cranial nerve assessment Psych: calm, no talking Course Course Course Narrative: -will recheck patient's blood work -patient not talking, awake and alert, does not seem to be in pain or any distress Medical Decision Making Medical Decision Making MDM Narrative: Patient's hemoglobin is relatively please stable. Six months ago it was approximately the same. At this time, we will not proceed with a blood transfusion. -patient has chronic excoriation in the scrotum. Miconazole 2% extra thick was applied to the groin area, at this time Lab Data 09/10/23 16:48 09/10/23 16:48 Labs: Lab Results 09/10/23 Range/Units 16:48 WBC 9.9 (4.8-10.8) X10*3/uL RBC 3.01 L (4.60-5.80) X10*6/uL Hgb 7.2 L (14.0-18.0) g/dl Hct 23.4 L (42.0-52.0) % MCV 77.7 L (80.0-98.0) fL MCH 23.9 L (27.0-33.0) pg MCHC 30.8 L (31.0-36.0) g/dl RDW 19.4 H (11.0-16.0) % Plt Count 493 H (160-400) X10*3/uL MPV 8.1 L (9.4-12.4) fL Immature Gran % (Auto) 0.6 H (0.0-0.4) % Neut % (Auto) 78.4 H (45-73) % Lymph % (Auto) 10.1 L (20-40) % [place] % (Auto) 9.2 (2-11) % Eos % (Auto) 1.5 (0-4) % Baso % (Auto) 0.2 (0-2) % Lymph # (Auto) 1.0 L (1.2-4.9) X10*3/uL [place] # (Auto) 0.9 (0.1-1.2) X10*3/uL Eos # (Auto) 0.2 (0.0-0.4) X10*3/uL Baso # (Auto) 0.0 (0.0-0.2) X10*3/uL Abs Immat Gran (auto) 0.06 H (0.00-0.03) X10*3/uL Absolute Neuts (auto) 7.8 (2.0-8.3) x10*3/uL Absolute Nucleated RBC 0.000 (0.0-0.012) X10*3/uL Nucleated RBC % (auto) 0.0 (0.0-0.2) /100WBC PT 15.5 H (11.1-13.3) SEC INR 1.3 H (0.9-1.1) APTT 29.7 (26.0-36.8) SEC Sodium 135 (135-145) mmol/L Potassium 4.5 (3.3-5.1) mmol/L Chloride 105 (96-108) mmol/L Carbon Dioxide 22 (22-29) mmol/L Anion Gap 13 (12-20) BUN 15 (9-16) mg/dL Creatinine 0.76 (0.5-1.4) mg/dL Estim Creat Clear Calc 79.2 Estimated GFR > 60 Random Glucose 83 (60-115) mg/dL Calcium 8.2 L D (8.4-10.2) mg/dL Magnesium 2.0 (1.6-2.6) mg/dL Total Bilirubin 0.1 (0.0-1.0) mg/dL Direct Bilirubin < 0.2 (0.0-0.5) mg/dL AST 21 (5-37) U/L ALT 10 (0-40) U/L Alkaline Phosphatase 124 H (39-117) U/L Total Protein 6.8 (6.5-8.0) g/dL Albumin 2.2 L (3.5-5.0) g/dL Blood Type B Positive Antibody Screen NEGATIVE Critical Care Time Critical Care Time Critical Care Time: Yes Total Critical Care Time: 45 Attestation: I have personally provided critical care time. Time includes review of lab data, radiology results, discussion with consultants, and monitoring for potential decompensation. Intervention performed as documented. Discharge Plan Discharge Clinical Impression: Chronic anemia, Excoriation of groin Patient Disposition: Home, Self-Care Instructions: Anemia (ED) Additional Instructions: Please follow-up with your primary care physician tomorrow. If you have any worsening or new symptoms, please return to the emergency room or call 911 Prescriptions: New miconazole nitrate 2 % cream 1 appl topical BID Qty: 42.5 1RF No Action multivitamin Tablet 1 tab PO DAILY levothyroxine 75 mcg Tablet 75 mcg PO DAILY@0600 gabapentin 300 mg Capsule 300 mg PO BEDTIME Qty: 30 0RF polyethylene glycol 3350 [Miralax] 17 gram powder in packet 17 g PO DAILY Qty: 30 0RF valacyclovir [Valtrex] 500 mg tablet 500 mg PO DAILY Qty: 90 0RF Rx Instructions: to be taken after 10 days of acute treatment for the rest of his life ferrous sulfate 325 mg (65 mg iron) tablet,delayed release (DR/EC) 325 mg PO BID Qty: 60 0RF acetaminophen 325 mg capsule 650 mg PO Q4H PRN (Reason: Pain) aspirin 81 mg tablet,delayed release (DR/EC) 81 mg PO DAILY bisacodyl 10 mg suppository 10 mg OR DAILY PRN (Reason: Constipation) docusate sodium [Colace] 100 mg capsule 100 mg PO DAILY isosorbide dinitrate 5 mg tablet 5 mg PO BID Rx Instructions: allow nitrate-free interval of 12-14 hrs per 24-hr period ibuprofen [Motrin IB] 200 mg tablet 600 mg PO Q6H PRN (Reason: Pain) gabapentin 300 mg capsule 300 mg PO BEDTIME naloxone 0.4 mg/mL solution 0.4 mg subcut Q3M PRN Rx Instructions: NTExceed 10 mg total dose/episode oxycodone 10 mg/0.5 mL syringe 10 mg PO Q4-6H PRN sennosides [senna] 8.6 mg tablet 8.6 mg PO DAILY chlorpromazine 25 mg tablet 50 mg PO BID amitriptyline 25 mg tablet 25 mg PO BEDTIME 30 Days Qty: 30 1RF Print Language: [place]
[2023-09-10 17:01] LABS: INTERNATIONAL NORM RATIO 1.3 (0.9-1.1); Prothrombin Time 15.5 SEC (11.1-13.3)
[2023-09-10 17:04] LABS: Partial Thromboplastin Time 29.7 SEC (26.0-36.8)
[2023-09-10 17:13] LABS: Alanine Aminotransferase 10 U/L (0-40); Albumin Level 2.2 g/dL (3.5-5.0); Alkaline Phosphatase 124 U/L (39-117); Anion Gap 13 (12-20); Aspartate Amino Transferase 21 U/L (5-37); Bilirubin Direct < 0.2 mg/dL (0.0-0.5); Bilirubin Total 0.1 mg/dL (0.0-1.0); Blood Urea Nitrogen 15 mg/dL (9-16); Calcium 8.2 mg/dL (8.4-10.2); Carbon Dioxide 22 mmol/L (22-29); Chloride 105 mmol/L (96-108); Creatinine Clr Calc Pharmacy 79.2; Estimated Glomerular Filt Rate > 60; Glucose Random 83 mg/dL (60-115); Potassium 4.5 mmol/L (3.3-5.1); Sodium 135 mmol/L (135-145); Total Protein 6.8 g/dL (6.5-8.0)
--- OUTSIDE RECORDS SUMMARY | 2023-09-10 17:20 | XMS_ITS | Continuity of Care Document ---
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 Role Phone Gustavo Kaur DO Primary Care Physician [phone] [place] [facility] [place]05[place]23 - 04/20/[address] [address]- Encounter Diagnosis Metastatic carcinoma(Final) - 04/05/23 Pancreatic cancer(Final) - 04/05/23 Scrotal swelling(Final) - 04/05/23 Anemia(Final) - 04/05/23 Discharge Disposition: A-D/C Home Attending Physician: Devin PRIEST, Robert Lynn Admitting Physician: Tammi Vargas MD Referring Physician: Not on Staff, Referring MD Allergies, Adverse Reactions, Alerts Substance Reaction Severity Status shellfish Active Immunizations Given and Recorded Vaccine Date Status Refusal Reason influenza virus vaccine, inactivated 12/26/22 Adolfo rded influenza virus vaccine, inactivated 12/08/20 Adolfo rded SARS-CoV-2 (COVID-19) mRNA BNT-162b2 vac 11/23/21 Recorded SARS-CoV-2 (COVID-19) mRNA BNT-162b2 vac 07/19/21 Recorded SARS-CoV-2 (COVID-19) mRNA BNT-162b2 vac 12/14/20 Recorded SARS-CoV-2 (COVID-19) mRNA BNT-162b2 vac 03/23/20 Recorded SARS-CoV-2 (COVID-19) mRNA BNT-162b2 vac 03/02/20 Recorded Medications acetaminophen 325 mg oral tablet 650 mg, 2, tablet, By Mouth, Every 4 hours, PRN, Maintenance, as needed for pain/fever, 04/06/23 9:37:00 EST, Partial fill upon patient request if the prescription is for a schedule II opioid drug. Start Date: 04/06/23 Status: Ordered amitriptyline 25 mg oral tablet 25 mg, 1, tablet, By Mouth, Daily at bedtime, Maintenance, 04/06/23 9:38:00 EST, Partial fill upon patient request if the prescription is for a schedule II opioid drug. Start Date: 04/06/23 Status: Ordered bisacodyl 10 mg rectal suppository 1 supp = 10 mg, Rectally, Daily, PRN for constipation, Maintenance, 04/06/23 9:38:00 EST, Suppository, Partial fill upon patient request if the prescription is for a schedule II opioid drug. Start Date: 04/06/23 Status: Ordered chlorproMAZINE 25 mg oral tablet 1 tablet = 25 mg, By Mouth, 2 times a day, Maintenance, 04/06/23 9:39:00 EST, Tablet, Partial fill upon patient request if the prescription is for a schedule II opioid drug. Start Date: 04/06/23 Status: Ordered docusate sodium 100 mg oral tablet 1 tablet = 100 mg, By Mouth, 2 times a day, PRN as needed for constipation, 0 Refills, Maintenance,11/28/15 14:43:20 EDT Start Date: 11/28/15 Status: Ordered Epipen Auto Injector = 0.3 mg, Intramuscular, Once, PRN Anaphylactic Reaction, 0 Refills, Maintenance, 04/06/23 9:39:00 EST, Partial fill upon patient request if the prescription is for a schedule II opioid drug. Start Date: 04/06/23 Status: Ordered ferrous sulfate 325 mg oral enteric coated tablet 325 mg, 1, tablet, By Mouth, Every other day, Maintenance, 04/06/23 9:40:00 EST, Partial fill upon patient request if the prescription is for a schedule II opioid drug. Start Date: 04/06/23 Status: Ordered Fleet Enema 19 gm-7 gm rectal enema 1 each, Rectally, Once, PRN for constipation, 0 Refills, Maintenance, 04/06/23 9:40:00 EST, Enema, Partial fill upon patient request if the prescription is for a schedule II opioid drug. Start Date: 04/06/23 Status: Ordered gabapentin 300 mg oral capsule 300 mg, Capsule, By Mouth, 04/19/23 21:00:00 EST Start Date: 04/19/23 Stop Date: 04/19/23 Status: Completed gabapentin 300 mg oral capsule 300 mg, 1, capsule, By Mouth, Daily at bedtime, Refills 0, Maintenance, 04/06/23 9:41:00 EST, Partial fill upon patient request if the prescription is for a schedule II opioid drug. Start Date: 04/06/23 Status: Ordered isosorbide dinitrate 5 mg oral tablet 5 mg, 1, tablet, By Mouth, 2 times a day, Maintenance, 04/06/23 9:41:00 EST, Partial fill upon patient request if the prescription is for a schedule II opioid drug. Start Date: 04/06/23 Status: Ordered levothyroxine 0.075 mg oral tablet 1 tablet, By Mouth, Daily, 0 Refills, Maintenance, 11/28/15 14:42:49 EDT Start Date: 11/28/15 Status: Ordered MiraLax oral powder for reconstitution = 17 Gm, By Mouth, Daily, for 14 days, # 238 Gm, 0 Refills, Acute 05/04/23 14:36:00 EST, 04/20/23 14:36:00 EST, REC Powder, Partial fill upon patient request if the prescription is for a schedule II opioid drug. Start Date: 04/20/23 Stop Date: 05/04/23 Status: Ordered Multivitamin Daily, 0 Refills, Maintenance, 11/28/15 14:43:35 Start Date: 11/28/15 Status: Ordered Senna = 8.6 mg, By Mouth, Daily, 0 Refills, Maintenance, 04/06/23 9:43:00 EST, Partial fill upon patient request if the prescription is for a schedule II opioid drug. Start Date: 04/06/23 Status: Ordered valACYclovir 500 mg oral tablet 500 mg, 1, tablet, By Mouth, Daily at bedtime, Maintenance, 04/06/23 9:43:00 EST, Partial fill uponpatient request if the prescription is for a schedule II opioid drug. Start Date: 04/06/23 Status: Ordered Vashe Topical Solution 475 mL, Topically, Daily, 0 Refills, Maintenance, Solution Start Date: 04/20/23 Status: Ordered Vitamin C 500 mg oral tablet 1 tablet = 500 mg, By Mouth, 2 times a day, Maintenance, 04/06/23 9:44:00 EST, Tablet, Partial fillupon patient request if the prescription is for a schedule II opioid drug. Start Date: 04/06/23 Status: Ordered Problem List Condition Confirmation Course Effective Dates Status Health St atus Informant Dementia Confirmed Active Encounter for screening colonoscopy Confirmed Active Results Orders for Microbiology Reports Name Date Blood Culture 04/12/23 Blood Culture #2 04/12/23 Blood Culture 04/05/23 Blood Culture #2 04/05/23 Microbiology Reports TEST:Blood Culture STATUS:Auth (Verified) BODY SITE: SOURCE:Blood COLLECTED DATE/TIME:04/12/23 12:46 AM Blood Culture SPECIMEN DESCRIPTION : BLOOD L HAND SPECIAL REQUESTS : NONE CULTURE : NO GROWTH 5 DAYS. REPORT STATUS : FINAL 04/17/2023 TEST:Blood Culture, Second Order STATUS:Auth (Verified) BODY SITE: SOURCE:Blood COLLECTED DATE/TIME:04/12/23 12:46 AM Blood Culture, Second Order SPECIMEN DESCRIPTION : BLOOD RT HAND SPECIAL REQUESTS : NONE CULTURE : NO GROWTH 5 DAYS. REPORT STATUS : FINAL 04/17/2023 TEST:Blood Culture, Second Order STATUS:Auth (Verified) BODY SITE: SOURCE:Blood COLLECTED DATE/TIME:04/05/23 11:02 AM Blood Culture, Second Order SPECIMEN DESCRIPTION : BLOOD LEFT UPPER ARM SPECIAL REQUESTS : NONE CULTURE : NO GROWTH 5 DAYS. REPORT STATUS : FINAL 04/10/2023 TEST:Blood Culture STATUS:Auth (Verified) BODY SITE: SOURCE:Blood COLLECTED DATE/TIME:04/05/23 10:36 AM Blood Culture SPECIMEN DESCRIPTION : BLOOD LA SPECIAL REQUESTS : NONE CULTURE : NO GROWTH 5 DAYS. REPORT STATUS : FINAL 04/10/2023 Radiology Reports * Exam Date Time Procedure Performing Provider Status 04/16/23 8:03 PM Chest Single Frontal View Nicole Braun; Auth (Verified) Notes: (Chest Single Frontal View) Reason For Exam: s/p right lung biopsy;Postop RESULT: Chest Single Frontal View Chest Single Frontal View Reason: Postop; s p right lung biopsy; Clinical Question(s): Postop COMPARISON: Multiple studies earlier today FINDINGS: LINES AND TUBES: None. LUNGS AND PLEURA: Multiple lung nodules not significantly changed. No significant change in the previously reported perilesional hemorrhage adjacent to the biopsied lung nodule at the right lung base. No pneumothorax. No pleural effusion. HEART, MEDIASTINUM AND SHILO: Heart is normal in size. Normal mediastinal and hilar contour. BONES AND SOFT TISSUES: No acute abnormality. IMPRESSION: No change from prior study less than 2 hours ago. Multiple lung nodules not significantly changed. No significant change in the previously reported minimal perilesional hemorrhage adjacent to the biopsied lung nodule at the right lung base. No pneumothorax. WSN: [id number] Ordering Physician: Silver Romero Dictated By: Som Rowe MD Dictated Date/Time: 04/16/23 9:45 pm Reviewed By: Som Rowe MD Signed By: Som Rowe MD Signed Date/Time: 04/16/23 9:45 pm Transcribed By: TIP Transcribed Date/Time: 04/16/23 9:44 pm * Exam Date Time Procedure Performing Provider Status 04/16/23 6:00 PM Chest Single Frontal View Shawn Rendon ; Auth (Verified) Notes: (Chest Single Frontal View) Reason For Exam: s/p right lung biopsy;Postop RESULT: Chest Single Frontal View Chest Single Frontal View Reason: Postop; s p right lung biopsy; Clinical Question(s): Postop COMPARISON: CT earlier today and also from 04/15/2023 FINDINGS: LINES AND TUBES: None. LUNGS AND PLEURA: Multiple lung nodules not significantly changed. No significant change in the previously reported perilesional hemorrhage adjacent to the biopsied lung nodule at the right lung base. No pneumothorax. No pleural effusion. HEART, MEDIASTINUM AND SHILO: Heart is normal in size. Normal mediastinal and hilar contour. BONES AND SOFT TISSUES: No acute abnormality. IMPRESSION: Multiple lung nodules not significantly changed. No significant change in the previously reported minimal perilesional hemorrhage adjacent to the biopsied lung nodule at the right lung base. No pneumothorax. WSN: [id number] Ordering Physician: Silver Romero Dictated By: Som Rowe MD Dictated Date/Time: 04/16/23 8:00 pm Reviewed By: Som Rowe MD Signed By: Som Rowe MD Signed Date/Time: 04/16/23 8:00 pm Transcribed By: CSB Transcribed Date/Time: 04/16/23 7:58 pm * Exam Date Time Procedure Performing Provider Status 04/16/23 12:00 AM IR End of Case Report Mo dified IR End of Case Report * Exam Date Time Procedure Performing Provider Status 04/16/23 12:[address] Guide Lung Biopsy Colon , Karley; Auth (Verified) Notes: (CT Guide Lung Biopsy) Reason For Exam: Diagnostic CT Guide Lung Biopsy Patient: BARRIE MEDINA Study Date: 04/16/2023 Performing: Silver Romero MD Referring: : 1960 Age: 62 Gender: MALE PROCEDURE: CT Guided Lung Nodule Biopsy INDICATION: Pancreatic mass ? lung metastases. 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 Silver Romero MD, Holly RN TECHNIQUE: Informed consent was obtained from the legal guardian. A limited CT scan of the right lung was performed using automatic tube current modulation to optimize exposure parameters. A suitable access site was identified, marked, prepped, and draped in standard fashion. Buffered 1% lidocaine was administered for local anesthesia. Using intermittent CT fluoroscopy guidance, a 17 Ga introducer needle was advanced to the periphery of the target lesion and 2 core biopsies obtained using 18 Ga supercore needles. A post biopsy scan was performed. A sample was sent for requested studies. 2 core passes obtained. COMPLICATIONS: The patient tolerated the procedure well and in stable condition. There were no immediate complications. Findings: Multiple lung nodules suspicious for metastatic disease. 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 Post biopsy scan demonstrates perilesional hemorrhage but no pneumothorax. PLAN: Routine post procedure monitoring. Chest radiographs immediately and 2 hours post procedure to assess for delayed complications. IMPRESSION: 8 CT-guided lung biopsy of right lung nodule. Signed By Silver Romero MD On 04/16/2023 19:39:27 Signed By Silver Romero MD On 04/16/2023 19:39:27 Silver Romero MD Equipment : Argon CO-AXIAL INTRO 17 x 3.9 Argon SUPERCORE 18 X 9 Argon SUPERCORE 18 X 9 Dictated By: Silver Romero MD Dictated Date/Time: 04/16/23 0:00 am Reviewed By: Silver Romero MD Signed By: Silver Romero MD Signed Date/Time: 04/16/23 0:00 am Transcribed By: MALVIN Transcribed Date/Time: 04/16/23 0:00 am * Exam Date Time Procedure Performing Provider Status 04/15/23 5:[address] Chest W/ Contrast Colon , Karley; Auth (Verified) Notes: (CT Chest W/ Contrast) Reason For Exam: Undiagnosed Mass/Nodule RESULT: CT Chest W/ Contrast CT Chest W/ Contrast INDICATION: Pancreatic mass and basilar lung nodules. COMPARISON: Chest x-ray 04/12/2023, abdomen CT 04/05/2023 TECHNIQUE: Helical CT scan of the chest with IV contrast, formatted in 3 planes. 75 cc of [id number].Weight-based protocol was performed using automatic exposure control. CTDIvol Body: 5.30 mGy, DLP Body: 240 mGy*cm. FINDINGS: UNIT TRUST MANAGER VIEW FINDINGS, LINES AND TUBES: No lines or tubes. TRACHEA AND MAIN BRONCHI: Patent without evidence of tracheal or endobronchial lesion. LUNGS AND PLEURA: * Multiple bilateral widespread prominently solid pulmonary nodules (several in the left lower lobehave small cavitary central portions). * Largest nodule 18 mm anterolateral portion right lower lobe on axial 76, close to the chest wall. * There are several other basilar nodules that are also close to the chest wall that should be accessible for CT-guided biopsy, including an 18 mm nodule in the medial right lung base on axial image 84. PULMONARY ARTERIES: Normal caliber. No evidence of pulmonary embolism on this study performed without angiographic technique. AORTA: No aneurysm. HEART: Normal heart size. No pericardial effusion. empty MEDIASTINUM and SHILO: No masses or adenopathy. No esophageal abnormalities. CHEST WALL SOFT TISSUES: Normal. DIAPHRAGM AND UPPER ABDOMEN: Grossly unchanged pancreatic tail mass. BONES: No bone lesions or fractures. IMPRESSION: Multiple bilateral metastatic lung nodules. Several should be accessible for CT- guided biopsy. WSN: [id number] Ordering Physician: Porter Villalobos Dictated By: Mino Garcia MD Dictated Date/Time: 04/15/23 6:28 pm Reviewed By: Mino Garcia MD Signed By: Mino Garcia MD Signed Date/Time: 04/15/23 6:28 pm Transcribed By: TIP Transcribed Date/Time: 04/15/23 6:19 pm * Exam Date Time Procedure Performing Provider Status 04/12/23 1:10 AM Chest Portable Alfonso Vazquez; Auth (Verified) Notes: (Chest Portable) Reason For Exam: Fever RESULT: Chest Portable Chest Portable Reason: Fever; Clinical Question(s): Pneumonia COMPARISON: CT abdomen and pelvis with IV contrast only dated 04/05/2023. FINDINGS: LINES AND TUBES: None. LUNGS AND PLEURA: There are faintly visualized multiple pulmonary nodules in both lung bases the largest seen in the right lower lobe measuring about 17 mm in diameter. Several of the nodules were seen on a recent CT scan of the abdomen and pelvis dated 04/05/2023. Known pancreatic mass. These nodules probably represents metastatic disease. A CT scan of the chest with IV contrast may be helpful to evaluate the metastatic burden in the lungs if clinically indicated.. Normal pulmonary vascularity. No focal lung parenchymal consolidation seen. No pleural effusion. No pneumothorax. HEART, MEDIASTINUM AND SHILO: Heart is normal in size. Normal mediastinal and hilar contour. BONES AND SOFT TISSUES: No acute abnormality. Partially visualized mild degenerative change both shoulders. IMPRESSION: Several pulmonary nodules in both lung bases of different sizes consistent with presumed pancreaticprimary and metastatic lung disease. No focal pneumonitis is seen. WSN: [id number] Ordering Physician: Mark Monteiro Dictated By: Saman Christian MD, V Dictated Date/Time: 04/12/23 8:19 am Reviewed By: Saman Christian MD, V Signed By: Saman Christian MD, V Signed Date/Time: 04/12/23 8:19 am Transcribed By: TIP Transcribed Date/Time: 04/12/23 8:12 am * Exam Date Time Procedure Performing Provider Status 04/05/23 11:[address] Abd/Pelvis W/ IV Contrast Only Dang Estevez; Auth (Verified) Notes: (CT Abd/Pelvis W/ IV Contrast Only) Reason For Exam: testicular and penile swelling w/ discharge;Other: RESULT: CT Abd/Pelvis W/ IV Contrast Only CT Abd/Pelvis W/ IV Contrast Only Hx of Present Illness: sent in by SNF for low H & H. Testicular swelling. Clinical Question(s): Abscess; TECHNIQUE: Spiral CT through the abdomen and pelvis with IV contrast formatted in 3 planes. 75 cc of Omnipaque 300 was administered intravenously. This study was performed without oral contrast. Weight-based protocol using automatic tube modulation was used to optimize exposure parameters. CTDIvol Body: 11.60 mGy, DLP Body: 788 mGy*cm. COMPARISON: None on record at the time of interpretation. FINDINGS: LUNG BASES: There are a few scattered pulmonary nodules, the largest is in the left lower lobe posterior medially axial image 5 series 301 measuring up to 1.9 cm in transverse dimension. Lungs are otherwise moderately hyperexpanded and clear. LIVER: Probable small cyst in the left lobe. GALLBLADDER: No CT evidence of gallbladder pathology. BILE DUCTS: No intra or extra hepatic bile duct dilation. SPLEEN: Normal in size and attenuation. PANCREAS: Left upper quadrant oblong 4.6 x 6.6 x 6.8 cm heterogeneously mass likely arising in the tail of the pancreas. ADRENAL GLANDS: Difficult to visualize, left adrenal gland appears somewhat nodular versus thickened. KIDNEYS and URETERS: Moderate left-sided hydronephrosis with a dilated renal pelvis measuring up to2.9 cm in dimension with layering hyperdense material axial image 59 series 301 suggesting milk of calcium. The ureter is nondilated. Normal-appearing right kidney. BLADDER: Severe diffuse thickening best seen in coronal image 29 series 302. REPRODUCTIVE ORGANS: Prostate is moderately enlarged and heterogeneous. STOMACH, SMALL AND LARGE BOWEL: Small sliding hiatal hernia. Extensive stool retention throughout the rectosigmoid and left colon. Distal rectal wall thickening suggesting mild stercoral colitis. APPENDIX: No evidence of appendicitis. PERITONEUM, OMENTUM AND MESENTERY: No ascites or pneumoperitoneum. No omental or mesenteric lesions. VASCULATURE: No aneurysm. No evidence of venous thrombosis. Splenic vein is likely compressed related to pancreatic mass suggested above. LYMPH NODES: Extensive retroperitoneal lymphadenopathy, one of the largest nodes at the level of the left renal vein axial image 43 series 301 measuring 2 cm short axis dimension. Bilateral inguinal adenopathy is also noted. ABDOMINAL WALL: Severe diffuse skin thickening and edematous changes throughout the scrotum. Testicles are not well evaluated on this exam. There is diffuse anasarca. BONES: No acute abnormalities, no focal osseous lesions. IMPRESSION: 1. Large mass in the tail of the pancreas likely a primary malignancy with suggested metastatic disease to the included lungs and retroperitoneal/inguinal nodes. 2. Multiple pulmonary nodules are likely metastatic. 3. Extensive retroperitoneal and bilateral inguinal lymphadenopathy also likely metastatic. 4. Extensive stool impaction throughout the rectosigmoid. 5. Mild distal rectal wall thickening suggesting secondary stercoral colitis. 6. Severe diffuse bladder wall thickening age and etiology indeterminate. 7. Severe scrotal wall thickening and edematous changes, testicles are not well visualized. 8. Moderate left-sided hydronephrosis and renal pelvis dilatation suggesting a UPJ obstruction, however no renal atrophy is identified, urology consultation recommended. Findings sent to Gaudencio Mckeon via [employer] 04/05/2023 11:55 AM with acknowledgement received at 1:49 PM. WSN: [id number] Ordering Physician: Gaudencio Mckeon Dictated By: Baron Magana MD Dictated Date/Time: 04/05/23 4:58 pm Reviewed By: Baron Magana MD Signed By: Baron Magana MD Signed Date/Time: 04/05/23 4:58 pm Transcribed By: TIP Transcribed Date/Time: 04/05/23 11:59 am Vital Signs Most recent to oldest [Reference Range]: 1 2 3 Height 185 cm (04/19/23 11:16 PM) 185 cm (04/19/23 7:47 PM) 185 cm (04/19/23 1:54 AM) Weight 61.1 kg (04/06/23 12:44 AM) 80 kg (04/05/23 11:44 PM) 80 kg (04/05/23 9:58 AM) Oxygen Saturation [94-100 %] 100 % (04/20/23 7:00 AM) 98 % (04/19/23 11:16 PM) 97 % (04/19/23 7:47 PM) Pulse Rate [55-90 bpm] 95 bpm *H* (04/20/23 7:00 AM) 108 bpm *H* (04/19/23 11:16 PM) 85 bpm (04/19/23 7:47 PM) Body Mass Index [18.5-24.99 kg/m2] 23.37 kg/m2 (04/05/23 11:44 PM) 23.37 kg/m2 (04/05/23 9:56 AM) Blood Pressure [90-138/55-84 mm Hg] 104/53mm Hg (04/20/23 7:00 AM) 113/58mm Hg (04/19/23 11:16 PM) 111/67mm Hg (04/19/23 7:47 PM) Respiratory Rate [16-30 br/min] 18 br/min (04/20/23 7:00 AM) 20 br/min (04/19/23 11:16 PM) 18 br/min (04/19/23 9:34 PM) Temperature [96.8-100.4 DegF] 97.5 DegF (04/20/23 7:00 AM) 98.5 DegF (04/19/23 11:16 PM) 99.4 DegF (04/19/23 7:47 PM) Mode of Delivery (Oxygen) Room air (04/20/23 7:00 AM) Room air (04/19/23 11:16 PM) Room air (04/19/23 7:47 PM) Blood pressure sites Arm, left (04/20/23 7:00 AM) Arm, left (04/19/23 11:16 PM) Arm, left (04/19/23 7:47 PM) Temperature Route Axillary (04/20/23 7:00 AM) Oral (04/19/23 11:16 PM) Oral (04/19/23 7:47 PM) Dry Weight 80 kg (04/05/23 11:44 PM) 80 kg (04/05/23 9:58 AM) Weight Obtained Via Bed scale (04/06/23 12:44 AM) Social History Social History Type Response Sex Male History and physical note * Edinson PRIEST, Mendez Boyd: PERFORM Event Display: History and Physical Hospital Authored Date: Patient: ??BARRIE MEDINA ? Age:??62 Years?Sex:??Male?:??1960?? Chief Complaint/Reason for Consultation sent in by SNF for low H&H 21/6.2. also has testicular swelling x weeks History of Present Illness This is a 62-year-old man who has significant history of dementia, hypertension, dyslipidemia, hypothyroidism, genital herpes, coronary disease who comes from a long term facility for evaluation of anemia and swollen testicles. The patient is nonverbal and unable to provide any history.?? Most of the information obtained by reviewing long term facility records and ER note. Patient was found to have a hemoglobin of 6.5 and referred to the emergency room for further evaluation.?? She usually goes to [facility] where he gets iron infusions. In the emergency room, she underwent a CT of the abdomen pelvis which showed the presence of a large mass in the tail of the pancreas likely a primary malignancy with metastatic disease to the lung, peritoneal/inguinal nodes with extensive retroperitoneal and inguinal lymphadenopathy.?? Fecal impaction and severe diffuse bladder wall thickening. Severe scrotal wall thickening and edematous changes and left moderate hydronephrosis. Patient refused an enema while in the emergency room. Review of Systems Unable to obtain Objective Measurements?? Height: 185 cm (04/05/23) Weight: 80 kg (04/05/23) Dry Weight: 80 kg (04/05/23) Body Mass Index: 23.37 kg/m2 (04/05/23) ? Vital Signs?? Temperature: 97.9 DegF (04/05/23 19:57:00) Temperature Route: Oral (04/05/23 19:57:00) Pulse Rate: 79 bpm (04/05/23 19:57:00) Respiratory Rate: 18 br/min (04/05/23 19:57:00) Systolic Blood Pressure: 133 mm Hg (04/05/23 19:57:00) Diastolic Blood Pressure: 68 mm Hg (04/05/23 19:57:00) Blood pressure sites: Arm, right (04/05/23 19:57:00) Mean Arterial Pressure: 74 mm Hg (04/05/23 09:56:00) Pulse Pressure: 50 mm Hg (04/05/23 09:56:00) Oxygen Saturation: 100 % (04/05/23 19:57:00) Mode of Delivery (Oxygen): Room air (04/05/23 19:57:00) Early Warning Score: 2 (04/05/23 19:57:28) ? Physical Exam Constitutional: Alert, in no distress.?? Frail man.?? Cachectic. Mental Status: Awake. ??Patient nonverbal. Head: Normocephalic. Eyes: Pupils are equal, round and reactive to light. Extraocular muscles intact. Ear, Nose and Throat: Oropharynx clear, pallor without jaundice,??mucous membranes moist. Ears and nose without masses, lesions or deformities. Trachea midline. Neck: Facial hair. ??Supple, Full range of motion. Respiratory: Clear to auscultation??anteriorly. No wheezing, rales or rhonchi. Cardiovascular: S1 S2 regular. No murmurs, rubs or gallops. Gastrointestinal: Flat, abdomen soft, diffusely tender with voluntary guarding, no rebound tenderness. ??Non-distended. Normal bowel sounds. No pulsatile mass. No hepatosplenomegaly. Genitourinary: No costovertebral angle tenderness. Neurologic: Patient nonverbal,??awake??and not following commands??while talking to him.?? Able to move??extremities??to painful stimuli. Skin: No rashes or lesions. No petechiae or purpura.??No lower extremity edema. Musculoskeletal: No cyanosis or clubbing. No gross deformities. Normal range of motion. Heme/Lymphatics/Immun: Palpation of neck reveals no swelling or tenderness of neck nodes. Palpationof groin reveals no swelling or tenderness of groin nodes. Assessment/Plan Diagnoses Anemia ??(D64.9) Dementia ??(F03.90) Fecal impaction ??(K56.41) Genital herpes ??(A60.00) Hydronephrosis of left kidney ??(N13.30) Hypothyroidism ??(E03.9) Metastatic carcinoma ??(C79.9) Pancreatic cancer ??(C25.9) Scrotal swelling ??(N50.89) ?? Assessment:??This is a??62-year-old man??who is nonverbal,??with history of dementia, hypertension,??hypothyroidism??who was referred to the emergency room??from long term facility??with worsening anemia??and??scrotal edema. Patient??found to have??pancreatic cancer with extensive metastatic disease. ?? Pancreatic cancer (C25.9):??He will be admitted to regular room as inpatient. Check??CA 19???9. Oncology consult ?? Metastatic carcinoma (C79.9):??Patient with extensive metastatic disease to the lung, retroperitoneal nodules??and??inguinal area. ?? Hydronephrosis of left kidney (N13.30):??Most likely due to metastatic disease.??Patient with normal renal function at the moment. Nonurgent??urology consult in the morning ?? Scrotal swelling (N50.89):??Urology consult in the morning.?Apparently, he has been evaluated byurology??at [facility]. I reached out to long term facility ([facility])??who will send patient paperwork including medications??as his records??got lost while in the emergency room. ?? Anemia (D64.9):??Continue to monitor H&H. Holding transfusion for now. Check iron studies, reticulocyte count, ferritin level,??vitamin B12 and folic acid levels. ?? Dementia (F03.90):??Frequent reorientation by nursing staff. As per long term facility??staff, the patient??is mostly nonverbal but able to speak??a few words only when he wants to . High risk for delirium. Consider??[place] psych consult. Bowel regimen. Avoid Norman catheter ?? Fecal impaction (K56.41):??Bowel regimen with Colace, senna, MiraLAX??and Dulcolax suppository. Patient??uncooperative for a Fleet enema. I will try??medications first before??attempting??manual disimpaction ?? Hypothyroidism (E03.9):??Will restart??outpatient medication levothyroxine??once we have his records. ?? Genital herpes (A60.00):??Patient apparently??has been treated??with Valtrex. Will restart Valtrex??once??outpatient??records are obtained. ?? VTE Prophylaxis:??Bilateral compression boots. ?VTE Prophylaxis Assessment:??VTE Prophylaxis Ordered ?? Code Status:??Awaiting long term facility records??in regards of CODE STATUS. ? I spent a total of 75 minutes today reviewing the chart/medical records, speaking with the patient, formulating and discussing the treatment plan, and documenting the findings and encounter. Discharge Planning:? Histories Allergies Allergies ?(Active and Proposed Allergies Only) shellfish? (Severity: Unknown severity, Onset: Unknown) ? Past Medical History/Problem List Active Problems??(2) Dementia Encounter for screening colonoscopy ? Past Surgical History No surgery history documented. ? Social History No social history documented. ? Family History No family history recorded. ? Medications Home Medications Aspirin (aspirin buffered 81 mg oral tablet)?1?tab(s)?81?Milligram?By Mouth?Daily ChlorproMAZINE (chlorproMAZINE 10 mg oral tablet)?1?tab(s)?10?Milligram?By Mouth?3 times a day Docusate (docusate sodium 100 mg oral tablet)?1?tab(s)?100?Milligram?By Mouth?2 times a day Isosorbide Dinitrate (isosorbide dinitrate 5 mg oral tablet)?5?Milligram?1?tablet?ByMouth?Every 12 hours Multivitamin?Daily PEG Electrolyte Solution (NuLYTELY with Flavor Packs oral powder for reconstitution)?240?Milliliter?By Mouth?Every 10 minutes ? Results Recent Labs BLOOD BANK Blood Type B Positive ()?? 04/05/2023 10:58 Antibody Screen Negative ()?? 04/05/2023 10:58 ?? BLOOD COUNT & DIFF WBC 6.4 k/mm3 ()?? 04/05/2023 10:36 RBC 2.85 m/mm3 (Low)?? 04/05/2023 10:36 Hgb 7.0 Gm/dL (Low)?? 04/05/2023 10:36 Hct 23.0 % (Low)?? 04/05/2023 10:36 MCV 80.7 femtoliters ()?? 04/05/2023 10:36 MCH 24.6 pg (Low)?? 04/05/2023 10:36 MCHC 30.4 g/dL (Low)?? 04/05/2023 10:36 Platelet Count 606 k/mm3 (High)?? 04/05/2023 10:36 RDW-SD 52.1 femtoliters (High)?? 04/05/2023 10:36 MPV 8.2 femtoliters (Low)?? 04/05/2023 10:36 Nucleated RBC (Automated) 0.0 #/100 WBC'S ()?? 04/05/2023 10:36 Abs. NRBC 0.0 k/mm3 ()?? 04/05/2023 10:36 Abs. Neut 4.6 k/mm3 ()?? 04/05/2023 10:36 Abs. Lymph 0.8 k/mm3 ()?? 04/05/2023 10:36 Abs. Irwin 0.8 k/mm3 ()?? 04/05/2023 10:36 Abs. Eo 0.2 k/mm3 ()?? 04/05/2023 10:36 Abs. Baso 0.0 k/mm3 ()?? 04/05/2023 10:36 Neut % 72.1 % ()?? 04/05/2023 10:36 Lymph % 12.3 % (Low)?? 04/05/2023 10:36 Irwin % 12.0 % (High)?? 04/05/2023 10:36 Eos % 2.8 % ()?? 04/05/2023 10:36 Baso % 0.3 % ()?? 04/05/2023 10:36 Imm Gran 0.5 % ()?? 04/05/2023 10:36 Abs. Imm Gran 0.0 k/mm3 ()?? 04/05/2023 10:36 ?? CHEM GENERAL Sodium 139 mmol/L ()?? 04/05/2023 10:36 Potassium 4.7 mmol/L ()?? 04/05/2023 10:36 Chloride 105 mmol/L ()?? 04/05/2023 10:36 Bicarbonate Level 25 mmol/L ()?? 04/05/2023 10:36 Anion Gap 9 ()?? 04/05/2023 10:36 Glucose Level 99 mg/dL ()?? 04/05/2023 10:36 BUN 16 mg/dL ()?? 04/05/2023 10:36 Creatinine-Blood 0.9 mg/dL ()?? 04/05/2023 10:36 Estimated GFR Creatinine 97 ML/MIN/1.73 M2 ()?? 04/05/2023 10:36 Calcium 8.8 mg/dL ()?? 04/05/2023 10:36 Protein, Total 6.5 Gm/dL ()?? 04/05/2023 10:36 Albumin 2.7 Gm/dL (Low)?? 04/05/2023 10:36 AG Ratio 0.7 ()?? 04/05/2023 10:36 Alkaline Phosphatase 56 units/L ()?? 04/05/2023 10:36 AST (SGOT) 14 units/L ()?? 04/05/2023 10:36 ALT (SGPT) 8 units/L ()?? 04/05/2023 10:36 Bilirubin, Total <0.2 mg/dL ()?? 04/05/2023 10:36 Lactate 1.8 mmol/L ()?? 04/05/2023 10:36 ?? HEME OTHER Hold Lavender Top SPECIMEN DISCARDED AFTER 24 HOURS. ()?? 04/05/2023 11:02 ?? URINE OTHER Est Creatinine Clearance 93.26 mL/min ()?? 04/05/2023 11:59 ? Imaging(s) ?CT Abd/Pelvis W/ IV Contrast Only ?? 04/05/2023 11:35??by Baron Magana MD ?IMPRESSION: 1. Large mass in the tail of the pancreas likely a primary malignancy with suggested metastatic disease to the included lungs and retroperitoneal/inguinal nodes. 2. Multiple pulmonary nodules are likely metastatic. 3. Extensive retroperitoneal and bilateral inguinal lymphadenopathy also likely metastatic. 4. Extensive stool impaction throughout the rectosigmoid. 5. Mild distal rectal wall thickening suggesting secondary stercoral colitis. 6. Severe diffuse bladder wall thickening age and etiology indeterminate. 7. Severe scrotal wall thickening and edematous changes, testicles are not well visualized. 8. Moderate left-sided hydronephrosis and renal pelvis dilatation suggesting a UPJ obstruction, however no renal atrophy is identified, urology consultation recommended. ? Hospital Progress note * Jessica Gabriel RN: VERIFY, PERFORM, SIGN Event Display: Progress Note Hospital Authored Date: [id number] Patient: BARRIE MEDINA Age: 62 years Sex: Male : 1960 Associated Diagnoses: None Author: Jessica Gabriel RN Discharge Information Functional Assessment Personal hygiene: total. Feeding ability: self. Standing ability: with assist. Elimination: last bowel movement 04/20/2023 14:54:00, incontinent (bladder, bowel). Patient selectively verbal. Edema scrotum and penile. Feeding self independently after set-up of tray. Tolerating Ensure oral supplements. Bilateral DP palpable. Lungs diminished bilateral bases. No cough noted. Patient cooperative with care. Moves stiffly with turn and reposition. No eye contact noted. . Nutritional Assessment Appetite: fair. Date and time of last meal 04/20/2023 12:30:00. Pain Assessment Level on transfer: 0. Valuables/Belongings Transported with patient. Psycho-Social Assessment Affect/behavior: cooperative. Mental status: alert. Orientation: person. Case Management Discharge Plan : Case Management Discharge Plan Data 04/20/2023 14:02 EST Discharge Level of Care at Discharge halfway facility Discharge Nursing Homes/Rehab Facilities [facility] Discharge Transportation Arranged [facility] [address] [place] [address] Mode of Transportation Arranged Ambulance Name of Agency #1 [facility] Service Categories #1 Senior Care Service Comments #1 You are returning to [facility] via ambulance today Rehabilitation Discharge : Rehab Discharge Index 04/18/2023 8:26 EST Comments on treatment indicated see comment Distance pt will ambulate ~3' from bed>chair with RW and fair balance Full chart review completed Yes Hospital course Hospital course Plan of care PT Gait training, Transfer training, Therapeutic exercise, Functional Activities, Balance training * Juliocesar Leyva RN: PERFORM, SIGN, VERIFY Event Display: Progress Note Hospital Authored Date: Patient: BARRIE MEDINA Age: 62 years Sex: Male : 1960 Associated Diagnoses: None Author: Juliocesar Leyva RN Findings Problem Related to Alteration in Comfort : Alteration in Comfort/new 04/19/2023 20:00 EST Alteration in Comfort Related to Disease process Goals & Outcomes: Comfort Pt will report acceptable level of comfort & pain control, Pt will state importance of adhering to pain strategy regime, Pt will demonstrate necessary skills to manage pain, Non-verbal indicators will indicate comfort/pain control Interventions Implemented: Comfort Assess pain using appropriate pain scale/tools, Assess aggravating factors & prevent them accordingly, Assess alleviating factors & promote them accordingly BH Goals/Interventions, Comfort Yes Comfort, Problem Start 04/05/2023 4:06 Reviewed plan with, Comfort Patient Patient Progression, Comfort Pt progressing according to plan Comfort, Problem Ongoing Yes . Evaluation A+O to his self. patient selectively conversing, vital signs stable, denies any chest pain, sob, nausea. Lungs clear and diminished to auscultation, on room air. Positive bowel sounds. Patient is incontinent of both bladder and bowel. Last BM 04/20/2023. Denies dysuria or any urinary concerns. Patient with scrotal and penis wounds. Daily wound care and with incontinent care. No edema noted. Positive pedal pulses. Patient is currently a turn and reposition. Tolerating diet without any nausea. Bed in lowest locked position, bed alarm on and call nieves within reach. . Discharge Information Rehabilitation Discharge : Rehab Discharge Index 04/18/2023 8:26 EST Comments on treatment indicated see comment Distance pt will ambulate ~3' from bed>chair with RW and fair balance Full chart review completed Yes Hospital course Hospital course Plan of care PT Gait training, Transfer training, Therapeutic exercise, Functional Activities, Balance training * Rodrigo PENALOZA, Serene Ocampo: PERFORM Event Display: Progress Note Hospital Authored Date: Patient: ??BARRIE MEDINA ? Age:??62 Years?Sex:??Male?:??1960?? Subjective Mr. Medina was awake and alert upon evaluation eating his dinner. He did not respond to conversation or review of systems inquiry. Discussed with nursing and Bahman continues to eat most of his mealsand is able to reposition himself in bed. No non-verbal signs or symptoms of discomfort noted. Discussed case with primary team and oncology consulted in the setting of pathology consistent with metastatic colorectal cancer. Oncology met with patient and recommended comfort focused care/hospice, see note for??further details.? Discussed with Mr. Medina' guardian, Hussain, and he shares that he was worried this would be the case. He shares his agreement with Bahman being able to return to his facility and to focus on comfort. He is not able to make a determination about next steps or a transition in focus given his legal guardian status. He is in agreement with returning to court for expansion of guardianship. Relayed above to primary team.?? Review of Systems Mr. Medina was awake but did not respond to review of systems inquiry.?? Objective Vitals & Measurements T:??98.4?F?? TMIN:??97.6?F?? TMAX:??99.0?F?? HR:??79??(Peripheral)?? RR:??18?? BP:??137/74?? SpO2:??96%?? Physical Exam Constitutional:??Thin male??sitting upright in bed HEENT:?Sclera anicteric, head normocephalic, atraumatic. Oral mucosa moist, neck supple Resp:??unlabored, room air. ??No cough, wheezing, accessory muscle use. Neuropsychiatric:??Alert, did not respond to orientation questions, did not nodd yes/no to questions,??spontaneous movement in all four extremities, calm, interactive, appropriate Lab Results Labs reviewed - anemia noted,??H/H stable Assessment/Plan Impression:??Barrie Medina is a 62 year old male with past medical history significant for dementia, hypertension, hypothyroidism, genital herpes infection??who was admitted to [facility] on 04/05/2023 for anemia and scrotal edema. Imaging identified large mass in the tail of the pancreas with concern for metastatic disease to the lungs, retroperitoneum and inguinal nodes.??Oncology consulted and they recommended biopsy prior to recommendations.? Suggestions: ? # Risk of Pain.??in the setting of??pancreas lesion and lesion to the lungs, retroperitoneum, and inguinal nodes concerning for metastatic cancer Total 24hr OME:??None - Continue home gabapentin - Continue PRN acetaminophen 975mg [id number]? # Risk of Constipation??in the setting of opioid regimen. -??Nonpharmacological interventions to include adequate fluid intake, mobility as tolerated, privacy for stool evacuation, consider discontinuation/taper other medications contributing to constipation, correct electrolytes.?? -??Schedule polyethylene and/or consider scheduled senna 2 tablets QHS - PRN bisacodyl suppository? # Psychosocial support/Adjustment to Illness: - Barrie Ruggiero ??resides at [facility] since 2006. They have contact information for a brother but the SNF staff and his legal guardian state that his family has not been involved in his care recently. They received a phone call when his mother . - Barrie enjoys watching television specifically sports and law&order. He enjoys listening tomusic as well, primarily??today's hits.?? - Barrie is minimally verbal but is able to??vocalize to make his needs??known. He ambulates without assistance and appears rigid at times but can move quickly when motivated. - Barrie is well known to the SNF RNs and SW. - continue to offer supportive listening - will involve members of interdisciplinary team as appropriate ? # Prognostic Awareness.? - Palliative Performance Scale: 50%?? - ECOG Performance Status: 3 (Ambulatory and capable of only limited self-care; confined to bed or chair > 50%)?? - FAST??7B (Speech ability is??limited to the use of a single intelligible word in an average day or in the course of an intensive interview)? # Advanced Care Planning. -??Legal guardian: Hussain Garcia??(non-familial) [phone] & [phone] - Full code Hussani Garcia shares that he does not have the authority to change code status or discuss end of life decisions at this time. He understands he would need to return to court for guardianship expansion to decide on code status or end of life decisions. - MOLST on file? No?? - Goals are restorative;??Mr. Medina was not able to participate in goals of care discussion given that he did not verbalize his understanding of his illness. His legal guardian acknowledges the diagnosis and is in agreement with oncology's recommendations.??He has previously shared??his hope that Barrie will be comfortable and be able to enjoy the time he has left. He acknowledges the next step to proceed with expansion of guardianship. - palliative care will continue to follow and are available for any additional family meetings if the need arises.? Thank you for this consultation. ??We will continue to follow to monitor response to treatment and ongoing evaluation of treatment options.? Serene Wallace NP?? Palliative Care Service Pager [phone] Medications Inpatient Acetaminophen Tablet, 650 mg, By Mouth, Every 4 hours, PRN amitriptyline 25 mg oral tablet, 25 mg, By Mouth, Daily at bedtime aspirin 81 mg oral delayed release tablet, 81 mg, By Mouth, Daily chlorproMAZINE 25 mg oral tablet, 25 mg, By Mouth, 2 times a day Dextrose 50% Inj Syringe (25Gm), 12.5 Gm, IV Push Slowly, Every 20 minutes, PRN Dextrose 50% Inj Syringe (25Gm), 25 Gm, IV Push Slowly, Every 15 minutes, PRN Docusate Sodium Capsule, 100 mg= 1 capsule, By Mouth, 2 times a day, PRN Dulcolax Supp, 10 mg= 1 supp, Rectally, Daily, PRN Enoxaparin Inj, 40 mg= 0.4 mL, Subcutaneous Injection, Every 24 hours gabapentin 300 mg oral capsule, 300 mg, By Mouth, Daily at bedtime Glucagon Inj, 1 mg, Intramuscular, Once, PRN Glucose Gel, 15 Gm, By Mouth, Every 20 minutes, PRN Glucose Gel, 30 Gm, By Mouth, Every 20 minutes, PRN isosorbide dinitrate 5 mg oral tablet, 5 mg, By Mouth, 2 times a day levothyroxine 0.075 mg oral tablet, 75 mcg, By Mouth, Daily Melatonin Tablet, 3 mg, By Mouth, Daily at bedtime, PRN NaCL 0.9% Flush, 3 mL, IV Push, Every 8 hours NaCL 0.9% Flush, 3 mL, IV Push, Every 8 hours, PRN Robitussin DM Liquid, 10 mL, By Mouth, Every 4 hours, PRN Senna Tablet, 8.6 mg= 1 tablet, By Mouth, 2 times a day, PRN Simethicone Tablet, 80 mg, Chew, 3 times a day, PRN valACYclovir 500 mg oral tablet, 500 mg, By Mouth, Daily Vashe Topical Solution, 475 mL, Topically, Daily Home acetaminophen 325 mg oral tablet, 650 mg= 2 tablet, By Mouth, Every 4 hours, PRN amitriptyline 25 mg oral tablet, 25 mg= 1 tablet, By Mouth, Daily at bedtime aspirin buffered 81 mg oral tablet, 81 mg= 1 tablet, By Mouth, Daily bisacodyl 10 mg rectal suppository, 10 mg= 1 supp, Rectally, Daily, PRN chlorproMAZINE 25 mg oral tablet, 25 mg= 1 tablet, By Mouth, 2 times a day docusate sodium 100 mg oral tablet, 100 mg= 1 tablet, By Mouth, 2 times a day Epipen Auto Injector, 0.3 mg, Intramuscular, Once, PRN ferrous sulfate 325 mg oral enteric coated tablet, 325 mg= 1 tablet, By Mouth, Daily Fleet Enema 19 gm-7 gm rectal enema, 1 each, Rectally, Once, PRN gabapentin 300 mg oral capsule, 300 mg= 1 capsule, By Mouth, Daily at bedtime ibuprofen 200 mg oral tablet, 3 tablets, By Mouth, Every 6 hours, PRN isosorbide dinitrate 5 mg oral tablet, 5 mg= 1 tablet, By Mouth, 2 times a day levothyroxine 0.075 mg oral tablet, 1 tablet, By Mouth, Daily Multivitamin, Daily NuLYTELY with Flavor Packs oral powder for reconstitution, 240 mL, By Mouth, Every 10 minutes Senna, 8.6 mg, By Mouth, Daily, PRN valACYclovir 500 mg oral tablet, 500 mg= 1 tablet, By Mouth, Daily at bedtime Vitamin C 500 mg oral tablet, 500 mg= 1 tablet, By Mouth, 2 times a day Consult note * Axel PRIEST, Ruben: PERFORM Event Display: Consultation Note Authored Date: [id number] Patient: ??BARRIE MEDINA ? Age:??62 Years?Sex:??Male?:??1960?? Reason for Consult/Visit newly diagnosed metastatic colorectal adenocarcinoma (prelim results) Requesting Physician Devin PRIEST, Robert Lynn Hematology/Oncology History Mr. Medina is a 62-year-old man??who is??selectively verbal??with history of dementia, hypertension,??hypothyroidism, fecal incontinence, urinary incontinence,??mood disturbance, anxiety,??genital herpes infection,??who was referred to the emergency room??from long term facility??with worsening anemia??and??scrotal edema. He was recently seen in [facility] on 03/11/2023 and was noted to have??abnormal?? - CT scan of the abdomen pelvis??with question of left adrenal mass versusmass in the tail of the pancreas, enlarged retroperitoneal lymph nodes in the abdomen pelvis and dayami ateral groin??region. ??Multiple bilateral pulmonary nodules, moderate left hydronephrosis??secondary to retroperitoneal lymphadenopathy. ??Severe constipation .?? CT scan at [facility] on current admission showed?? large mass in the tail of the pancreas, multiple pulmonary nodule, Extensive retroperitoneal and bilateral inguinal lymphadenopathy.?? IR guided lung biopsy was done as per primary team's discussion with pathology the prelim results consistent with metastatic colorectal adenocarcinoma. ?? We visited patient at bedside.?? Patient did not make verbal or eye contact with us.?? He is alert and eyes are open but he did not engage in any conversation and did not say words.?? He is not obeying commands.?? As per his nurse he is selective in verbal communication.?? Sometimes patient responds to some question and when he does he is usually appropriate.?? He had a conversation with palliative care team before.?? By a lot of the time he does not respond to any questioning or anyone.?? Patient has remained in bed most of the day since his admission.??Patient has a large sacral wound because of being bedbound. He does feed himself and ate all his lunch today but usually he waits for everyone to leave the room to do that. Review of Systems Not obtained as he does not respond Problem List/Past Medical History Ongoing Dementia Encounter for screening colonoscopy Family History not obtianed Social History not obtianed Allergies shellfish Medications Inpatient Acetaminophen Tablet, 650 mg, By Mouth, Every 4 hours, PRN amitriptyline 25 mg oral tablet, 25 mg, By Mouth, Daily at bedtime aspirin 81 mg oral delayed release tablet, 81 mg, By Mouth, Daily chlorproMAZINE 25 mg oral tablet, 25 mg, By Mouth, 2 times a day Dextrose 50% Inj Syringe (25Gm), 12.5 Gm, IV Push Slowly, Every 20 minutes, PRN Dextrose 50% Inj Syringe (25Gm), 25 Gm, IV Push Slowly, Every 15 minutes, PRN Docusate Sodium Capsule, 100 mg= 1 capsule, By Mouth, 2 times a day, PRN Dulcolax Supp, 10 mg= 1 supp, Rectally, Daily, PRN Enoxaparin Inj, 40 mg= 0.4 mL, Subcutaneous Injection, Every 24 hours gabapentin 300 mg oral capsule, 300 mg, By Mouth, Daily at bedtime Glucagon Inj, 1 mg, Intramuscular, Once, PRN Glucose Gel, 15 Gm, By Mouth, Every 20 minutes, PRN Glucose Gel, 30 Gm, By Mouth, Every 20 minutes, PRN isosorbide dinitrate 5 mg oral tablet, 5 mg, By Mouth, 2 times a day levothyroxine 0.075 mg oral tablet, 75 mcg, By Mouth, Daily Melatonin Tablet, 3 mg, By Mouth, Daily at bedtime, PRN NaCL 0.9% Flush, 3 mL, IV Push, Every 8 hours NaCL 0.9% Flush, 3 mL, IV Push, Every 8 hours, PRN Robitussin DM Liquid, 10 mL, By Mouth, Every 4 hours, PRN Senna Tablet, 8.6 mg= 1 tablet, By Mouth, 2 times a day, PRN Simethicone Tablet, 80 mg, Chew, 3 times a day, PRN valACYclovir 500 mg oral tablet, 500 mg, By Mouth, Daily Vashe Topical Solution, 475 mL, Topically, Daily Home acetaminophen 325 mg oral tablet, 650 mg= 2 tablet, By Mouth, Every 4 hours, PRN amitriptyline 25 mg oral tablet, 25 mg= 1 tablet, By Mouth, Daily at bedtime aspirin buffered 81 mg oral tablet, 81 mg= 1 tablet, By Mouth, Daily bisacodyl 10 mg rectal suppository, 10 mg= 1 supp, Rectally, Daily, PRN chlorproMAZINE 25 mg oral tablet, 25 mg= 1 tablet, By Mouth, 2 times a day docusate sodium 100 mg oral tablet, 100 mg= 1 tablet, By Mouth, 2 times a day Epipen Auto Injector, 0.3 mg, Intramuscular, Once, PRN ferrous sulfate 325 mg oral enteric coated tablet, 325 mg= 1 tablet, By Mouth, Daily Fleet Enema 19 gm-7 gm rectal enema, 1 each, Rectally, Once, PRN gabapentin 300 mg oral capsule, 300 mg= 1 capsule, By Mouth, Daily at bedtime ibuprofen 200 mg oral tablet, 3 tablets, By Mouth, Every 6 hours, PRN isosorbide dinitrate 5 mg oral tablet, 5 mg= 1 tablet, By Mouth, 2 times a day levothyroxine 0.075 mg oral tablet, 1 tablet, By Mouth, Daily Multivitamin, Daily NuLYTELY with Flavor Packs oral powder for reconstitution, 240 mL, By Mouth, Every 10 minutes Senna, 8.6 mg, By Mouth, Daily, PRN valACYclovir 500 mg oral tablet, 500 mg= 1 tablet, By Mouth, Daily at bedtime Vitamin C 500 mg oral tablet, 500 mg= 1 tablet, By Mouth, 2 times a day Physical Exam Vitals & Measurements T:??98.4?F?? TMIN:??97.6?F?? TMAX:??99.0?F?? HR:??79??(Peripheral)?? RR:??18?? BP:??137/74?? SpO2:??96%?? General: Patient in no apparent distress, cacchectic?? Cardiac: S1, S2 heard; No mrg, Regular rate and rhythm. Respiratory: clear breath sounds bialterally GI: Soft, non tender Neuro: alert, not obeying commands, not responding to any questions, no eye contact Extremities: No edema Lab Results/Pathology CBC?? CMP?? Abs. NRBC: 0 k/mm3 (04/19/23 04:12:00) Anion Gap: 10 (04/18/23 05:18:00) Hct:??27.1 %??Low (04/19/23 04:12:00) Bicarbonate Level: 25 mmol/L (04/18/23 05:18:00) Nucleated RBC (Automated): 0 #/100 WBC'S (04/19/23 04:12:00) BUN: 21 mg/dL (04/18/23 05:18:00) RBC:??3.29 m/mm3??Low (04/19/23 04:12:00) Calcium: 8.7 mg/dL (04/18/23 05:18:00) RDW-SD:??53.5 femtoliters??High (04/19/23 04:12:00) Chloride: 103 mmol/L (04/18/23 05:18:00) WBC: 6.4 k/mm3 (04/19/23 04:12:00) Creatinine-Blood: 0.9 mg/dL (04/18/23 05:18:00) ?? Estimated GFR Creatinine: 97 ML/MIN/1.73 M2 (04/18/23 05:18:00) ?? Glucose Level:??103 mg/dL??High (04/18/23 05:18:00) ?? Potassium: 4.4 mmol/L (04/18/23 05:18:00) ?? Sodium: 138 mmol/L (04/18/23 05:18:00) Assessment/Plan Mr. Medina is a 62-year-old man??who is??selectively verbal??with history of dementia, hypertension,??hypothyroidism, fecal incontinence, urinary incontinence,??mood disturbance, anxiety,??genital herpes infection,??who was referred to the emergency room??from long term facility??with worsening anemia??and??scrotal edema. CT scan at [facility] on current admission showed?? large mass in the tail of the pancreas, multiple pulmonary nodule, Extensive retroperitoneal and bilateral inguinal lymphadenopathy.?? IR guided lung biopsy was done as per primary team's discussion with pathology the prelim results consistent with metastatic colorectal adenocarcinoma. ?? Because of patient's poor performance status, sacral pressure ulcers as well as difficulty communication he would not be a candidate for chemotherapy.?? Ideally patients who are on chemotherapy should be able to communicate side effects somehow and does not seem Mr. Medina would be able to do that.?? Additionally patient has poor performance status in patients with poor performance status studieshave shown that chemotherapy can actually worsen survival and would cause more harm than benefit.??Lastly patient has sacral wound ulcers with chemotherapy increases the risk of infection and would impair wound healing.?? For all these reasons we do not believe he is a candidate for chemotherapy or cancer treatment.?? Recommend discussion with palliative care team and patient's legal guardian regarding comfort measures and possibly hospice. ? Patient was seen and discussed with Dr. Ruiz ?? Ruben Reyna MD, MPH, PGY4 Hematology and Oncology Fellow * Donya Dill RN: PERFORM, MODIFY, SIGN, VERIFY Event Display: Consultation Note Authored Date: [id number] Patient: BARRIE MEDINA Age: 62 years Sex: Male : 1960 Associated Diagnoses: None Author: Donya Dill RN History of Presenting Problem penile edema 04/05 scrotal lesions 04/05 scrotal lesion 2 04/05 scrotum and penis right side scotum and penis left side Date of Service 04/10/2023 Reason for referral Wound: Description Location: Penis & scrotum Etiology: Unknown etiology, consider Genital Wart (Condyloma Acuminata) from history of genital herpes VS. Buschke- Evelyn Tumor (associated with HPV) Wound Bed: Scattered areas of poorly defined skin loss with moist pale pink wound base, various areas of fungating cauliflower like masses Edges: Poorly defined, macerated No Fluctuance or Induration Drainage: Minimal serosanguineous with scant mckeon/opaque Odor: Mild foul 0 FACES with soft manipulation, although per PCT when cleansing patient in pain (pain with both repositioning & manipulation) Goals: Vashe to assist with odor & decrease bioburden, Triad to assist with moisture/barrier protection and enhanced autolytic debridement . Wound RN consult entered to assess scrotum wound and make topical recommendations. Patient was admitted on 04/05/23 from SNF for worsening anemia and scrotal edema; per recent progress note patient being worked up for pancreatic mass with extensive metastatic appearing lesions. Urology consulted on04/07 for scrotal wound describing swelling likely extensive lymphedema with recommendation for palliative/hospice care- scrotal elevation- perineum care with preventative creams. Significant PMH includes dementia- selectively verbal- mood disturbances, HTN, hypothyroidism, fecal and urinary incontinence and genital herpes; see H&P for further details. Spoke to RN pre visit agreeable to assessment as well as photodocumentation, she stated patient yelled out this morning with care. Upon entering room patient sitting in bed with breakfast in front of him, food set up for him although he was staring at his right hand that was manipulating a sugar packet in a repetitive pattern (this did notstop entire visit). Patient did not make eye contact or answer questions, when asked multiple timesif he needed assistance & tried assisting with juice he said I got it . I discussed behavior with RN post visit. PCT and RN aware to discontinue brief use, discussed moisture management interventions. MD Gilbert Villalobos aware via [employer] pre visit of knowledge of urology described area as lymphedema but with his hx of genital herpes looks like fungating cauliflower like mass with ulcerations, consider etiology of Buschke-Evelyn tumor (associated with HPV) vs. Genital warts (condylomaacuminata) and consider biopsy per photos. Post visit via [employer] made aware of odor & pain status along with my recommendations. While writing this note MD to bedside and discussed this patient briefly verbally, discussing behavior, shown my photos and verified no need for precautions atthis time. Recommendations: 1.) Penis/scrotum: Gently cleanse wound bed followed by the periwound with VASHE solution moistenedgauze. Allow to dry. Apply layer of Triad to wound beds. Only pat and dab, no scrub and rub, when soiling occurs. Reapply daily and PRN after incontinence care. 2.) Order/place patient on specialty bed/low air loss mattress 3.) Turn and reposition every 2 hours and PRN 4.) Continue incontinence care as well as moisture management; do not utilize Mepilex foam dressingwith incontinence 5.) Do not utilize brief use 6.) Continue to offload bony prominences 7.) Continue to provide optimal nutritional support; nutrition consulted 8.) Provide Gaymar cushion to chair when patient OOB Please reconsult wound care RNs for deterioration in wound/skin status Patient at increased risk for pressure injury development d/t mobility, moisture and current integumentary status, please ensure to utilize pressure prevention interventions Plan Patient Teaching Discussed plan of care with patient Discussed plan of care with RN Time spent 46-60 minutes * Rodrigo PENALOZA, Serene Ocampo: PERFORM, MODIFY Event Display: Consultation Note Authored Date: [id number] Patient: ??BARRIE MEDINA ? Age:??62 Years?Sex:??Male?:??1960?? Chief Complaint sent in by SNF for low H&H 21/6.2. also has testicular swelling x weeks Reason for Consultation Palliative Care is consulted to assist with symptom management, goals of care, and planning. History of Present Illness History:??Barrie Medina is a 62 year old male with past medical history significant for dementia,hypertension, hypothyroidism, genital herpes infection??[facility] and [facility]. Imaging identified large mass in the tail of the pancreaswith concern for metastatic disease to the lungs, retroperitoneum and inguinal nodes.??Oncology consulted and they recommended biopsy prior to recommendations.??Discussed case with primary team and nursing. ?? Mr. Medina was awake and alert sitting at the edge of the bed upon evaluation. His lunch tray was in front of him and he was opening milk and sugar packets to add to his coffee. Palliative Care introduced. Mr. Medina did not make eye contact initially but made eye contact later in the visit. He nodded his head yes/no to most questions with intermittent verbal output. He specifically noted that hewanted milk for his coffee and verbalized his??request for assistance with opening the milk container. He was able to follow commands in all four extremities.? Barrie resides at [facility] in [place]. Spoke with one of his nurses, Serene, and she shares that Barrie?? Bahman has lived at the facility since approximately 2006. She shares that he??is very selective with talking and will primarily nodd his head yes/no to questions. She notes that he walks without assistance. She shares that he appears rigid at times but can ambulate quickly if he is motivated. At times, he is able to make his needs known and will verbalize a request for??food. She shares that he has a soft chopped diet because he prefers to chew and break his food into small pieces. She states that he takes a long time to eat his meals and becomes frustrated if he is rushed. She notes that he is a smoker and the residents are allowed 4 cigarettes a day. At times, [facility] if he is still eating his meals. She shares that she has not seen family visit julio do have contact information for his brother. She notes that they received a call when his mother . She shares that he enjoys watching television specifically sports and law & order. He enjoys listening to music as well, they usually have today's hits on the radio for him.? Spoke with Barrie's legal guardian, Hussain Garcia, to introduce myself and Palliative Care. Hussain shares that he is a registered pharmacist and is familiar with palliative care and hospice. Kwabena shares that Barrie has been in the hospital a few times in the past month and usually goes to [place]. He reflects on his discussion with Dr. Bragg yesterday and shares his understanding of the concern for metastatic cancer. He shares his understanding that it is a life-limiting illness and time may be short but it is not determined at this time. He understands that some cancers are treatable but not curable. Hussain plans to speak with Lisa the social media specialist at the facility to discuss next steps with her. He shares that Lisa has known Barrie for a long time prior to Hussain being involved. Hussain notes that he has been Barrie's guardian since and he visits him every couple of months. He shares that Barrie is minimally verbal and has a face of stone where it is sometimes difficult to tell how he is feeling. He shares that he is ambulatory and can movelike a flash . He shares that he wants him to be comfortable and he has spoken with the attorney at law atthe facility to discuss next steps. He shares that he does have authority to make end of life decisions at this time. He notes that he is not aware of any family that is involved but will discuss with Lisa as well. He shares that he is available by cell phone and if he is in court he will call back if the provider has left a message.? This patient was referred by Dr. Karla Perez? PCP: Dr. Gustavo Kaur? Code status: Full code? Legal guardian: Hussain Garcia??(non-familial) [phone] & [phone] Review of Systems Pain??- denies? Nausea/Vomiting?? - denies? Dyspnea??- denies? Sleep??- endorses adequate sleep? Fatigue??- denies? Bowels??- unable to recall LBM?? Physical Exam Vitals & Measurements T:??97.8?F?? TMIN:??97.6?F?? TMAX:??98.1?F?? HR:??84??(Peripheral)?? RR:??15?? BP:??105/61?? SpO2:??98%?? Constitutional:??Thin male??sitting upright at edge of bed HEENT:?Sclera anicteric, head normocephalic, atraumatic. Oral mucosa moist, neck supple Cor:?s1, s2, RRR, Resp:??Diminished, unlabored, room air. ??No cough, wheezing, accessory muscle use. Abd:??Round, soft, non-tender, + bowel sounds.? Ext:??Without edema, + pedal pulses Neuropsychiatric:?Alert, did not respond to orientation questions, nodded head yes/no to questions,??follows commands in all four extremities, calm, interactive, appropriate Assessment/Plan Impression:??Barrie Medina is a 62 year old male with past medical history significant for dementia, hypertension, hypothyroidism, genital herpes infection??who was admitted to [facility] on 04/05/2023 for anemia and scrotal edema. Imaging identified large mass in the tail of the pancreas with concern for metastatic disease to the lungs, retroperitoneum and inguinal nodes.??Oncology consulted and they recommended biopsy prior to recommendations.? Suggestions: ? # Risk of Pain.??in the setting of??pancreas lesion and lesion to the lungs, retroperitoneum, and inguinal nodes concerning for metastatic cancer Total 24hr OME:??None - Continue home gabapentin - Continue PRN acetaminophen 975mg [id number]?? -??Continue bowel regimen below in the setting of fecal impaction on imaging ? # Risk of Constipation??in the setting of opioid regimen. LBM 04/08 -??Nonpharmacological interventions to include adequate fluid intake, mobility as tolerated, privacy for stool evacuation, consider discontinuation/taper other medications contributing to constipation, correct electrolytes.?? -??Schedule polyethylene and/or consider scheduled senna 2 tablets QHS - PRN bisacodyl suppository? # Psychosocial support/Adjustment to Illness: - Barrie Ruggiero ??resides at [facility] since 2006. They have contact information for a brother but the SNF staff and his legal guardian state that his family has not been involved in his care recently. They received a phone call when his mother . - Barrie enjoys watching television specifically sports and law&order. He enjoys listening tomusic as well, primarily??today's hits.?? - Barrie is minimally verbal but is able to??vocalize to make his needs??known. He ambulates without assistance and appears rigid at times but can move quickly when motivated. - Barrie is well known to the SNF RNs and SW. - continue to offer supportive listening - will involve members of interdisciplinary team as appropriate ? # Prognostic Awareness.? - Palliative Performance Scale: 50%?? - ECOG Performance Status: 3 (Ambulatory and capable of only limited self-care; confined to bed or chair > 50%)?- FAST??7B (Speech ability is??limited to the use of a single intelligbile word in an average dayor in the course of an intensive interview)? # Advanced Care Planning. -??Legal guardian: Hussain Garcia??(non-familial) [phone] & [phone] Paperwork not available in [facility]. Primary team obtaining records from [facility].? - Full code Hussain Garcia shares that he does not have the authority to change code status or discuss end of life decisions at this time. He has reached out to the attorney at law at the facility to discuss next steps.?? - MOLST on file? No?? - Goals are restorative;??Mr. Medina was not able to participate in goals of care discussion given that he did not verbalize his understanding of his illness. His legal guardian shares his concern for possible metastatic cancer and the life-limiting nature of this disease. He notes his hope that Barrie will be comfortable and be able to enjoy the time he has left. He hopes to speak with the social media specialist at the facility to discuss further since she has known Barrie for the longest amount oftime. - palliative care will continue to follow and are available for any additional family meetings if the need arises.? Thank you for this consultation. ??We will continue to follow to monitor response to treatment and ongoing evaluation of treatment options.? Serene Wallace NP??P Palliative Care Service Pager [phone] Problem List/Past Medical History Ongoing Dementia Encounter for screening colonoscopy Medications Inpatient Acetaminophen Tablet, 650 mg, By Mouth, Every 4 hours, PRN amitriptyline 25 mg oral tablet, 25 mg, By Mouth, Daily at bedtime aspirin 81 mg oral tablet, chewable, 81 mg, By Mouth, Daily chlorproMAZINE 25 mg oral tablet, 25 mg, By Mouth, 2 times a day Docusate Sodium Capsule, 100 mg= 1 capsule, By Mouth, 2 times a day, PRN Dulcolax Supp, 10 mg= 1 supp, Rectally, Daily, PRN gabapentin 300 mg oral capsule, 300 mg, By Mouth, Daily at bedtime isosorbide dinitrate 5 mg oral tablet, 5 mg, By Mouth, 2 times a day levothyroxine 0.075 mg oral tablet, 75 mcg, By Mouth, Daily Melatonin Tablet, 3 mg, By Mouth, Daily at bedtime, PRN MiraLax Powder, 17 Gm= 1 pack/packet, By Mouth, Daily, PRN NaCL 0.9% Flush, 3 mL, IV Push, Every 8 hours NaCL 0.9% Flush, 3 mL, IV Push, Every 8 hours, PRN Robitussin DM Liquid, 10 mL, By Mouth, Every 4 hours, PRN Senna Tablet, 8.6 mg= 1 tablet, By Mouth, 2 times a day, PRN Simethicone Tablet, 80 mg, Chew, 3 times a day, PRN valACYclovir 500 mg oral tablet, 500 mg, By Mouth, Daily Home acetaminophen 325 mg oral tablet, 650 mg= 2 tablet, By Mouth, Every 4 hours, PRN amitriptyline 25 mg oral tablet, 25 mg= 1 tablet, By Mouth, Daily at bedtime aspirin buffered 81 mg oral tablet, 81 mg= 1 tablet, By Mouth, Daily bisacodyl 10 mg rectal suppository, 10 mg= 1 supp, Rectally, Daily, PRN chlorproMAZINE 25 mg oral tablet, 25 mg= 1 tablet, By Mouth, 2 times a day docusate sodium 100 mg oral tablet, 100 mg= 1 tablet, By Mouth, 2 times a day Epipen Auto Injector, 0.3 mg, Intramuscular, Once, PRN ferrous sulfate 325 mg oral enteric coated tablet, 325 mg= 1 tablet, By Mouth, Daily Fleet Enema 19 gm-7 gm rectal enema, 1 each, Rectally, Once, PRN gabapentin 300 mg oral capsule, 300 mg= 1 capsule, By Mouth, Daily at bedtime ibuprofen 200 mg oral tablet, 3 tablets, By Mouth, Every 6 hours, PRN isosorbide dinitrate 5 mg oral tablet, 5 mg= 1 tablet, By Mouth, 2 times a day levothyroxine 0.075 mg oral tablet, 1 tablet, By Mouth, Daily Multivitamin, Daily NuLYTELY with Flavor Packs oral powder for reconstitution, 240 mL, By Mouth, Every 10 minutes Senna, 8.6 mg, By Mouth, Daily, PRN valACYclovir 500 mg oral tablet, 500 mg= 1 tablet, By Mouth, Daily at bedtime Vitamin C 500 mg oral tablet, 500 mg= 1 tablet, By Mouth, 2 times a day Allergies shellfish Immunizations Vaccine Date Status influenza virus vaccine, inactivated 12/26/2022 Recorded SARS-CoV-2 (COVID-19) mRNA BNT-162b2 vac 11/23/2021 Recorded SARS-CoV-2 (COVID-19) mRNA BNT-162b2 vac 2021 Recorded SARS-CoV-2 (COVID-19) mRNA BNT-162b2 vac 12/14/2020 Recorded influenza virus vaccine, inactivated 12/08/2020 Recorded SARS-CoV-2 (COVID-19) mRNA BNT-162b2 vac 03/23/2020 Recorded SARS-CoV-2 (COVID-19) mRNA BNT-162b2 vac 03/02/2020 Recorded Lab Results Labs reviewed - H/H stable, anemia noted, hypocalcemia Diagnostic Results CT Abdomen/Pelvis 04/05/2023: 1. ??Large mass in the tail of the pancreas likely a primary malignancywith suggested metastatic disease to the included lungs and retroperitoneal/inguinal nodes. 2. ??Multiple pulmonary nodules are likely metastatic. 3. ??Extensive retroperitoneal and bilateral inguinal lymphadenopathy also likely metastatic. 4. ??Extensive stool impaction throughout the rectosigmoid. 5. ??Mild distal rectal wall thickening suggesting secondary stercoral colitis. 6. ??Severe diffuse bladder wall thickening age and etiology indeterminate. 7. ??Severe scrotal wall thickening and edematous changes, testicles are not well visualized. 8. ??Moderate left-sided hydronephrosis and renal pelvis dilatation suggesting a UPJ obstruction, however no renal atrophy is identified, urology consultation recommended. Note * Harvey MATTA, Jessica D: PERFORM Event Display: Discharge/Transfer Note Hospital Authored Date: [id number] Nursing Discharge Note Entered On: 04/20/2023 15:59 EST Performed On: 04/20/2023 15:56 EST by Jessica Gabriel RN Nursing Discharge Note 2 Discharge Time : 04/20/2023 15:56 EST Discharge Level of Care at Discharge : halfway facility Discharge Nursing Homes/Rehab Facilities : [facility] Patient Left Unit Via : Ambulance Patient Accompanied Off Unit with : Ambulance/Chair Van Personnel Handover Given to Transport Personnel : Yes DC Instructions Provided & Signed by Pt : No Patient Understands D/C Instructions : No Verbalization of Discharge Plan Comments : Patient nodded head when told he was returning to [facility] in [place]. Patient Instructions Discharge Signed : No Discharge Comments : report called to PAXTON Florentino at [phone] [facility] medication list and nursing assessment sent with patient Did Pt have Specialty Bed or Wound Vac : Yes Jessica Gabriel RN - 04/20/2023 15:56 EST * Devin PRIEST, Robert Lynn: PERFORM Event Display: Discharge/Transfer Note Hospital Authored Date: [id number] Patient: ??BARRIE MEDINA ? Age:??62 Years?Sex:??Male?:??1960?? Patient Information Discharge Location: 3 Primary Care Physician: Gustavo Kaur DO Admit Date/Time: 04/05/23 16:35 Discharge Disposition Discharge Disposition: Senior Care Facility/Rehab Discharge Diagnosis Anemia (D64.9) Dementia (F03.90) Fecal impaction (K56.41) Genital herpes (A60.00) Hydronephrosis of left kidney (N13.30) Hypothyroidism (E03.9) Metastatic carcinoma (C79.9) Colorectal Carcinoma Scrotal swelling (N50.89) ?? _ Discharge Medications Acetaminophen (acetaminophen 325 mg oral tablet)?650?Milligram?2?tablet?By Mouth?Every 4 hours?as needed?as needed for pain/fever amiTRIPTYLINE (amitriptyline 25 mg oral tablet)?25?Milligram?1?tablet?By Mouth?Daily at bedtime Ascorbic Acid (Vitamin C 500 mg oral tablet)?1?tab(s)?500?Milligram?By Mouth?2 times a day Bisacodyl (bisacodyl 10 mg rectal suppository)?1?suppository(ies)?10?Milligram?Rectal ly?Daily?as needed?for constipation ChlorproMAZINE (chlorproMAZINE 25 mg oral tablet)?1?tab(s)?25?Milligram?By Mouth?2 times a day Docusate (docusate sodium 100 mg oral tablet)?1?tab(s)?100?Milligram?By Mouth?2 times a day?as needed?as needed for constipation Emollients, Topical (Vashe Topical Solution)?475?Milliliter?Topically?Daily EPINEPHrine (Epipen Auto Injector)?0.3?Milligram?Intramuscular?Once?as needed?Anap hylactic Reaction Ferrous Sulfate (ferrous sulfate 325 mg oral enteric coated tablet)?325?Milligram?1?tablet?By Mouth?Every other day Gabapentin (gabapentin 300 mg oral capsule)?300?Milligram?1?capsule?By Mouth?Daily at bedtime Isosorbide Dinitrate (isosorbide dinitrate 5 mg oral tablet)?5?Milligram?1?tablet?ByMouth?2 times a day Levothyroxine (levothyroxine 0.075 mg oral tablet)?1?tab(s)?By Mouth?Daily Multivitamin?Daily Polyethylene Glycol 3350 (MiraLax oral powder for reconstitution)?17?gram?By Mouth?Daily?for 14?Days Senna?8.6?Milligram?By Mouth?Daily Sodium Biphosphate-Sodium Phosphate (Fleet Enema 19 gm-7 gm rectal enema)?1?Each?Rectally?Once?as needed?for constipation ValACYclovir (valACYclovir 500 mg oral tablet)?500?Milligram?1?tablet?By Mouth?Daily at bedtime ? Medications Started None Medications Discontinued Aspirin Doses Changed None Allergies Allergies ?(Active and Proposed Allergies Only) shellfish? (Severity: Unknown severity, Onset: Unknown) ? 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 Discussed with guardian who is in agreement with above but will need to pursue expansion of guardianship which can be done from the facility. Patient being discharged in stable condition ?? In the interim would recommend - Follow up in 1-2 weeks BMP and CBC in 1 week. ?? Objective Assessment and Plan ?62-year-old man??who is??selectively verbal??with history of dementia, hypertension,??hypothyroidism, fecal incontinence, urinary incontinence,??mood disturbance, anxiety,??genital herpes infection,??who was referred to the emergency room??from long term facility??with worsening anemia??and? ?scrotal edema. ?? Anemia??of chronic disease and AMBER Per records??04/05/2023??hemoglobin Hb 6.5??, 03/21/2023??hemoglobin 7.1. Baseline appears close to 7 since February 26 B12 folic acid normal 04/06 iron level 16/binding capacity low/iron saturation 8/ferritin 59 Reticulocyte count inappropriately normal Seems to have combination of anemia of chronic disease and iron deficiency in setting of malignancy Hemoglobin seems to be stable for now?? Prior MD reached out to patient's legal guardian and have signed??blood consent form Did receive blood while in the hospital. Plan - Until hospice and BIAZZI NITRATOR OPERATOR pursued, would recommed CBC check in 1 week to assess need for further transfusions F/u with PCP in 1-2 weeks Continue po iron supplementation every other day Will discontinue aspirin on discharge given risk outweigh benefit and patient to likely pursue hospice. No documented recent CAD event. ?? Pancreatic mass with??extensive??metastatic appearing lesions Metastatic colorectal cancer 04/05 CT abdomen pelvis???large??mass in the tail of pancreas likely primary malignancy??with??metastatic??disease in the lungs retroperitoneum and inguinal nodes. ??Multiple??pulmonary nodules suspected to be metastatic, extensive retroperitoneal and bilateral inguinal lymphadenopathy. Moderate left-sided hydronephrosis and renal pelvis dilatation suggesting a UPJ obstruction, however no renal atrophy is identified.?? Severe diffuse bladder wall thickening.?? Severe scrotal wall thickening and edematous changes. CA 19-9?? negative Oncology consult was requested at admission??however they will need tissue biopsy first to evaluateand discuss options. 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 Palliative team also has been following the patient ,and discussed with the guardian regarding the above, who is in agreement however he will need to pursue expansion of guardianship to be able to make end of life decisions for the patient. As such case management and social work have checked with the facility at [facility], and this process can be pursued from the facility as an outpatient. Patient is vitally stable, his H&H has been stable over last few days, no other inpatient needsat this time hence he will be discharged to SNF today. Until hospice and BIAZZI NITRATOR OPERATOR is pursued would recommend monitoring CBC and BMP and f/u with PCP. ?? Hydronephrosis of left kidney?? Scrotal swelling,??wound 04/05 CT abdomen pelvis???large??mass in the tail of pancreas likely primary malignancy??with??metastatic??disease in the lungs retroperitoneum and inguinal nodes. ??Multiple??pulmonary nodules suspected to be metastatic, extensive retroperitoneal and bilateral inguinal lymphadenopathy. Moderate left-sided hydronephrosis and renal pelvis dilatation suggesting a UPJ obstruction, however no renal atrophy is identified.?? Severe diffuse bladder wall thickening.?? Severe scrotal wall thickening and edematous changes. As per Records from his alf - patient had an admission at [facility]??in October 2022 for scrotal swelling and infection??after failing course of doxycycline for scrotal cellulitis.? Evaluated by urology who have recommended the following : ??Would recommend palliative care/hospice care as the patient is not a candidate for any definitivetherapeutic intervention ?? Urinary incontinence is likely secondary to his genitourinary lymphedema and inability to retract the foreskin. 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 Would recommend considering utilizing a male pure wick device with suction or incontinence depends un dergarments/diapers with frequent diaper changes ??Would recommend skin care with emollient lubrication and petroleum based products such as Aquaphor or A&E ointment to protect the skin and prevent ulceration from chronic incontinence ?? His penile swelling and scrotal swelling is likely due to extensive lymphedema in the setting of metastatic cancer. There is no impending or acute infectious process that requires operative intervention. Would recommend scrotal elevation, supportive care, and DEEP care to keep the area as dry as possible ?? Seen by wound care with the following recommendations: 1.) Penis/scrotum: Gently cleanse wound bed followed by the periwound with VASHE solution moistenedgauze. Allow to dry. Apply layer of Triad to wound beds. Only pat and dab, no scrub and rub, when soiling occurs. Reapply daily and PRN after incontinence care.? 2.) Order/place patient on specialty bed/low air loss mattress 3.) Turn and reposition every 2 hours and PRN 4.) Continue incontinence care as well as moisture management; do not utilize Mepilex foam dressingwith incontinence?? 5.) Do not utilize brief use?? 6.) Continue to offload bony prominences 7.) Continue to provide optimal nutritional support; nutrition consulted?? 8.) Provide Gaymar cushion to chair when patient OOB ?? Plan on dc : Currently renal function is stable - would recommend check BMP in 1 week - if any symptoms of urinary retention or worsening Cr and Hospice is not pursued then he will need re-evaluation by urology. ?? History of genital herpes -??Valtrex 500 Mg daily ?? Dementia Frequent reorientation by nursing staff. As per long term facility??staff, the patient??is mostly nonverbal but able to speak??a few words only when he wants to . High risk for delirium. ?? Fecal impaction CT abdomen with??extensive stool impaction throughout the rectosigmoid,??mild??rectal wall thickening suggesting stercoral colitis Bowel regimen with Colace, senna, MiraLAX??and Dulcolax suppository. Has been having regular bowel movement now Continue laxative regimen outpatient. ?? Hypothyroidism Levothyroxine 75 mcg daily. ?? Continued other home meds which include -??Imdur, amitriptyline, chlorpromazine, gabapentin. Unclear why he is on imdur, but tolerating it, seems he has been taking this chronically ?? Once hospice pursued some of the medications can be discontinued. Vital Signs?? Temperature: 97.5 DegF (04/20/23 07:00:00) Temperature Route: Axillary (04/20/23 07:00:00) Pulse Rate:??95 bpm??High (04/20/23 07:00:00) Respiratory Rate: 18 br/min (04/20/23 07:00:00) Systolic Blood Pressure: 104 mm Hg (04/20/23 07:00:00) Diastolic Blood Pressure:??53 mm Hg??Low (04/20/23 07:00:00) Blood pressure sites: Arm, left (04/20/23 07:00:00) Mean Arterial Pressure: 76 mm Hg (04/19/23 23:16:00) Pulse Pressure: 51 mm Hg (04/20/23 07:00:00) Oxygen Saturation: 100 % (04/20/23 07:00:00) Mode of Delivery (Oxygen): Room air (04/20/23 07:00:00) Early Warning Score: 2 (04/20/23 09:09:47) ? Intake/Output? 04/05 16:35 04/20 07:00 04/19 07:00 04/18 07:00 04/17 07:00 ?? 04/20 14:18 04/20 14:18 04/20 06:59 04/19 06:59 04/18 06:59 Intake ?41625 ?480 ?480 ?0 ?280 Output ?0 ?0 ?0 ?0 ?0 Net Total ?52369 ?480 ?480 ?0 ?280 ? Urine Count ? 57 ?1 ?3 ?6 ?8 Diaper Count ?9 ?0 ?0 ?0 ?4 ? . Physical Exam Constitutional:??Alert, non verbal, does not interact at all, hence??difficult to assess mentation?? Respiratory: Clear to auscultation. No wheezing or crackles. No use of accessory muscles. Cardiovascular: S1S2 regular. No murmurs, rubs or gallops. Gastrointestinal: Abdomen soft, non-tender, non-distended. Normal bowel sounds.. Extremities: No lower extremity pitting??edema. ? Pending Results Transfuse RBCs ordered on 04/16/2023 Urinalysis w/hold for Urine Culture ordered on 04/05/2023 Urinalysis w/hold for Urine Culture ordered on 04/12/2023 Follow-Up Appointments Added Follow Up ?Time Frame ?Comments Natasha LARES, Gustavo Asif?1 to 2 weeks Patient Instructions You were brought into the hospital due to worsening scrotal edema and??anemia During this hospitalization on imaging you were noted to have a mass??in the tail of pancreas as well as some lesions in the lungs??concerning for cancer.?? You had a lung biopsy done??which??showed metastatic colorectal carcinoma.?? You were evaluated by the oncology team who recommended that because of??various??factors??unfortunately??you are not a candidate for chemotherapy at this time and have recommended to consider??hospice and comfort measures. ?? -Expansion of guardianship and??consideration of hospice and comfort measures to take place as outpatient from the facility ?? -We recommend follow-up with primary care provider in 1??to 2 weeks and to have repeat blood work to include CBC to make sure blood counts are stable??and to assess if??you need any more blood transfusions??in 1 week. ?? -Management of wounds:? 1.) Penis/scrotum: Gently cleanse wound bed followed by the periwound with VASHE solution moistenedgauze. Allow to dry. Apply layer of Triad to wound beds. Only pat and dab, no scrub and rub, when soiling occurs. Reapply daily and PRN after incontinence care.?? 2.) Order/place patient on specialty bed/low air loss mattress 3.) Turn and reposition every 2 hours and PRN 4.) Continue incontinence care as well as moisture management; do not utilize Mepilex foam dressingwith incontinence?? 5.) Do not utilize brief use?? 6.) Continue to offload bony prominences 7.) Continue to provide optimal nutritional support 8.) Provide Gaymar cushion to chair when patient OOB ?? 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 Post Discharge Care Discharge ?04/20/23 14:38:00 EST Discharge Prescriptions ?ePrescribed, 04/20/23 14:38:00 EST Home Health Face to Face ^[facility] Results Discharge Labs BLOOD BANK Blood Type B Positive ()?? 04/16/2023 09:32 Antibody Screen Negative ()?? 04/16/2023 09:32 RBC Unit ID [id number] ()?? 04/16/2023 11:48 RBC Available PT ()?? 04/16/2023 11:48 ?? BLOOD COUNT & DIFF WBC 7.8 k/mm3 ()?? 04/20/2023 06:06 RBC 3.44 m/mm3 (Low)?? 04/20/2023 06:06 Hgb 8.4 Gm/dL (Low)?? 04/20/2023 06:06 Hct 28.5 % (Low)?? 04/20/2023 06:06 MCV 82.8 femtoliters ()?? 04/20/2023 06:06 MCH 24.4 pg (Low)?? 04/20/2023 06:06 MCHC 29.5 g/dL (Low)?? 04/20/2023 06:06 Platelet Count 638 k/mm3 (High)?? 04/20/2023 06:06 RDW-SD 54.4 femtoliters (High)?? 04/20/2023 06:06 MPV 8.1 femtoliters (Low)?? 04/20/2023 06:06 Nucleated RBC (Automated) 0.0 #/100 WBC'S ()?? 04/20/2023 06:06 Abs. NRBC 0.0 k/mm3 ()?? 04/20/2023 06:06 Abs. Neut 4.4 k/mm3 ()?? 04/17/2023 06:48 Abs. Lymph 1.3 k/mm3 ()?? 04/17/2023 06:48 Abs. Irwin 0.7 k/mm3 ()?? 04/17/2023 06:48 Abs. Eo 0.4 k/mm3 ()?? 04/17/2023 06:48 Abs. Baso 0.0 k/mm3 ()?? 04/17/2023 06:48 Neut % 64.5 % ()?? 04/17/2023 06:48 Lymph % 19.3 % ()?? 04/17/2023 06:48 Irwin % 10.2 % ()?? 04/17/2023 06:48 Eos % 5.3 % ()?? 04/17/2023 06:48 Baso % 0.3 % ()?? 04/17/2023 06:48 Retic Count 1.1 % ()?? 04/06/2023 04:31 Retic Count Corrected 0.6 % (Low)?? 04/06/2023 04:31 Retic Production Index 0.3 % (Low)?? 04/06/2023 04:31 Imm Gran 0.4 % ()?? 04/17/2023 06:48 Abs. Imm Gran 0.0 k/mm3 ()?? 04/17/2023 06:48 ? CHEM GENERAL Sodium 139 mmol/L ()?? 04/20/2023 06:06 Potassium 5.2 mmol/L ()?? 04/20/2023 06:06 Chloride 105 mmol/L ()?? 04/20/2023 06:06 Bicarbonate Level 23 mmol/L ()?? 04/20/2023 06:06 Anion Gap 11 ()?? 04/20/2023 06:06 Glucose Level 86 mg/dL ()?? 04/20/2023 06:06 Glucose, POC 190 mg/dL (High)?? 04/19/2023 07:52 BUN 15 mg/dL ()?? 04/20/2023 06:06 Creatinine-Blood 0.8 mg/dL ()?? 04/20/2023 06:06 Estimated GFR Creatinine 98 ML/MIN/1.73 M2 ()?? 04/20/2023 06:06 Calcium 8.6 mg/dL ()?? 04/20/2023 06:06 Magnesium 2.0 mg/dL ()?? 04/20/2023 06:06 Protein, Total 6.5 Gm/dL ()?? 04/05/2023 10:36 Albumin 2.7 Gm/dL (Low)?? 04/05/2023 10:36 AG Ratio 0.7 ()?? 04/05/2023 10:36 Alkaline Phosphatase 56 units/L ()?? 04/05/2023 10:36 AST (SGOT) 14 units/L ()?? 04/05/2023 10:36 ALT (SGPT) 8 units/L ()?? 04/05/2023 10:36 Bilirubin, Total <0.2 mg/dL ()?? 04/05/2023 10:36 Vitamin B12 Level 460 pg/mL ()?? 04/06/2023 04:32 Folic Acid Level 10.9 ng/mL ()?? 04/06/2023 04:32 Lactate 1.0 mmol/L ()?? 04/12/2023 00:46 Iron Level 16 mcg/dL (Low)?? 04/06/2023 04:32 Iron Binding Capacity, Unsaturated 181 mcg/dL ()?? 04/06/2023 04:32 Iron Binding Capacity, Estimated Total 197 mcg/dL ()?? 04/06/2023 04:32 % Iron Saturation 8 % (Low)?? 04/06/2023 04:32 Ferritin Level 59 ng/mL ()?? 04/06/2023 04:32 ? COAG INR 1.1 ()?? 04/16/2023 04:43 Protime (PT) 11.8 seconds (High)?? 04/16/2023 04:43 ?? ENDOCRINE/TUMOR MARKER CA19-9 <2 U/mL ()?? 04/05/2023 22:36 ? HEME OTHER Hold Lavender Top SPECIMEN DISCARDED AFTER 24 HOURS. ()?? 04/05/2023 11:02 ? IMMUNOLOGY GENERAL Transferrin 144 mg/dL (Low)?? 04/06/2023 04:32 ? MISC. CHEMISTRY Procalcitonin 0.45 ng/mL ()?? 04/12/2023 00:46 Hold Gel Top SPECIMEN DISCARDED AFTER 1 WEEK ()?? 04/19/2023 04:12 ?? URINE OTHER Est Creatinine Clearance 104.92 mL/min ()?? 04/20/2023 07:18 ? Blood Glucose Trend Glucose Level: 86 mg/dL (04/20/23 06:06:00) ? Microbiology ?? Blood Culture?? Completed?? Source: Blood Body Site: ?? Collected Dt/Tm: 04/05/2023 10:32 Last Updated Dt/Tm: 04/05/2023 10:14 ?SPECIMEN DESCRIPTION : BLOOD LASPECIAL REQUESTS : NONECULTURE : NO GROWTH 5 DAYS.REPORT STATUS : FINAL 04/10/2023 Blood Culture #2?? Completed?? Source: Blood Body Site: ?? Collected Dt/Tm: 04/05/2023 10:32 Last Updated Dt/Tm: 04/05/2023 10:14 ?SPECIMEN DESCRIPTION : BLOOD ??LEFT UPPER ARMSPECIAL REQUESTS : NONECULTURE : NO GROWTH 5 DAYS.REPORT STATUS : FINAL 04/10/2023 Blood Culture?? Completed?? Source: Blood Body Site: ?? Collected Dt/Tm: 04/12/2023 00:46 Last Updated Dt/Tm: 04/12/2023 00:11 ?SPECIMEN DESCRIPTION : BLOOD L HANDSPECIAL REQUESTS : NONECULTURE : NO GROWTH 5 DAYS.REPORT STATUS : FINAL 04/17/2023 Blood Culture #2?? Completed?? Source: Blood Body Site: ?? Collected Dt/Tm: 04/12/2023 00:46 Last Updated Dt/Tm: 04/12/2023 00:11 ?SPECIMEN DESCRIPTION : BLOOD RT HANDSPECIAL REQUESTS : NONECULTURE : NO GROWTH 5 DAYS.REPORT STATUS : FINAL 04/17/2023 ? Imaging(s) ?CT Chest W/ Contrast ?? 04/15/2023 17:39??by Mino Garcia MD ? TRACHEA AND MAIN BRONCHI: Patent without evidence of tracheal or endobronchial lesion. ?? LUNGS AND PLEURA: * Multiple bilateral widespread prominently solid pulmonary nodules (several in the left lower lobehave small cavitary central portions). * Largest nodule 18 mm anterolateral portion right lower lobe on axial 76, close to the chest wall. * There are several other basilar nodules that are also close to the chest wall that should be accessible for CT-guided biopsy, including an 18 mm nodule in the medial right lung base on axial image 84. ?? PULMONARY ARTERIES: Normal caliber. No evidence of pulmonary embolism on this study performed without angiographic technique. ?? AORTA: No aneurysm. ?? HEART: Normal heart size. No pericardial effusion. empty ?? MEDIASTINUM and SHILO: No masses or adenopathy. No esophageal abnormalities. ?? CHEST WALL SOFT TISSUES: Normal. ?? DIAPHRAGM AND UPPER ABDOMEN: Grossly unchanged pancreatic tail mass. ?? BONES: No bone lesions or fractures. ?? IMPRESSION: ?? Multiple bilateral metastatic lung nodules. Several should be accessible for CT- guided biopsy. ?Chest Portable ?? 04/12/2023 01:10??by Gino PRIEST, Saman V ?Multiple lung nodules not significantly changed. No significant change in the previously reported minimal perilesional hemorrhage adjacent to the biopsied lung nodule at the right lung base. No pneumothorax. ?CT Abd/Pelvis W/ IV Contrast Only ?? 04/05/2023 11:35??by Izzy PRIEST, Baron ?IMPRESSION: 1. Large mass in the tail of the pancreas likely a primary malignancy with suggested metastatic disease to the included lungs and retroperitoneal/inguinal nodes. 2. Multiple pulmonary nodules are likely metastatic. 3. Extensive retroperitoneal and bilateral inguinal lymphadenopathy also likely metastatic. 4. Extensive stool impaction throughout the rectosigmoid. 5. Mild distal rectal wall thickening suggesting secondary stercoral colitis. 6. Severe diffuse bladder wall thickening age and etiology indeterminate. 7. Severe scrotal wall thickening and edematous changes, testicles are not well visualized. 8. Moderate left-sided hydronephrosis and renal pelvis dilatation suggesting a UPJ obstruction, however no renal atrophy is identified, urology consultation recommended. ?CT Guide Lung Biopsy ?? 04/16/2023 00:00??by Heather PRIEST, Njogu ?Findings: Multiple lung nodules suspicious for metastatic disease. 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 Post biopsy scan demonstrates perilesional hemorrhage but no pneumothorax. ? Consults(s) ?Consultation Note ?? 04/19/2023 18:33??by Ruben Reyna MD ?Because of patient's poor performance status, sacral pressure ulcers as well as difficulty communication he would not be a candidate for chemotherapy. Ideally patients who are on chemotherapy should be able to communicate side effects somehow and does not seem Mr. Medina would be able to do that. Additionally patient has poor performance status in patients with poor performance status studies have shown that chemotherapy can actually worsen survival and would cause more harm than benefit. Lastly patient has sacral wound ulcers with chemotherapy increases the risk of infection and would impair wound healing. For all these reasons we do not believe he is a candidate for chemotherapy or cancer treatment. Recommend discussion with palliative care team and patient's legal guardian regarding comfort measures and possibly hospice. ?Consultation Note ?? 04/07/2023 09:38??by Russell Campuzano MD ?Metastatic carcinoma with extensive retroperitoneal and inguinal adenopathy ??Would recommend palliative care/hospice care as the patient is not a candidate for any definitivetherapeutic intervention ?? Urinary incontinence is likely secondary to his genitourinary lymphedema and inability to retract the foreskin. 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 Would recommend considering utilizing a male pure wick device with suction or incontinence depends un dergarments/diapers with frequent diaper changes ??Would recommend skin care with emollient lubrication and petroleum based products such as Aquaphor or A&E ointment to protect the skin and prevent ulceration from chronic incontinence ?? His penile swelling and scrotal swelling is likely due to extensive lymphedema in the setting of metastatic cancer. There is no impending or acute infectious process that requires operative intervention. Would recommend scrotal elevation, supportive care, and DEEP care to keep the area as dry as possible ? Pathology(s) ?Surgical Pathology ?? 04/16/2023 08:00??by Omar Bass MD ?Right lung nodule, core needle biopsy: - Metastatic colorectal adenocarcinoma (see note). ?? Note: Immunohistochemical stains performed and reported as follows: ?A. CK20: Positive in tumor cells (patchy). ?B. CK7: Negative in tumor cells. ?C. CDX2: Positive in tumor cells. ?D. GATA3: Negative in tumor cells. ?E. TTF-1: Negative in tumor cells. Interpretation: The immunohistochemical stains profile supports the diagnosis of colorectal carcinoma. Immunohistochemical studies for DNA mismatch repair proteins and molecular testing are being performed and will be reported upon separately. ? 45??minutes spent on discharge * Mishel Do: PERFORM, SIGN, VERIFY Event Display: Case Management Discharge Plan Authored Date: [id number] Patient: BARRIE MEDINA Age: 62 years Sex: Male : 1960 Associated Diagnoses: None Author: Mishel Do Discharge Plan Case Management Discharge Plan : Case Management Discharge Plan Data 04/20/2023 14:02 EST Discharge Level of Care at Discharge halfway facility Discharge Nursing Homes/Rehab Facilities [facility] Discharge Transportation Arranged [facility] [address] [place] [address] Mode of Transportation Arranged Ambulance Name of Agency #1 [facility] Service Categories #1 Senior Care Service Comments #1 You are returning to [facility] via ambulance today * Harvey MATTA, Jessica Weems: PERFORM Event Display: Patient Education/Instruction Authored Date: [id number] Inpatient Adult Discharge Instructions. [address] [address] Name: BARRIE MEDINA : 1960?? Visit: 04/05/2023 16:35?? Current Date: 04/20/2023 14:44 ?? Account: [id number]?? Inpatient Adult Discharge Instructions We would like to thank you for allowing us to assist you with your healthcare needs. The following includes patient education materials and information regarding your injury/illness. Our entire staffstrives to provide an excellent experience for our patients and their families. PLEASE ENSURE YOU FOLLOW-UP PER THE INSTRUCTIONS BELOW! ?? YOUR OPINION IS IMPORTANT TO US! Please complete the survey you may receive by mail or email. Your feedback will be used to make improvements to the healthcare experiences of our patients and their families. Surveys are administered by [employer]. ?? If further treatment with your primary care physician or another doctor is recommended, it is important for you to keep the appointment. Call your primary care physician or return to the Emergency Department immediately if your condition worsens, fails to improve, or new symptoms develop. If you need to find a doctor, you can call [facility] [employer] for a referral at [phone] or toll free at [phone] or log in to [email or web address].. ?? [facility], in keeping with [facility] guidance, no longer requires face masks for staff, patientsor visitors in most situations. Similiar to time spent indoors at other locations, there is the chance that you were exposed to repiratory viruses during your time with us (such as flu or COVID-19). If you develop symptoms concerning for a viral respiratory infection, please seek testing (and treatment if indicated) from your medical provider or home test kit. ?? You can view and manage your care through the patient portal or by using a health care grant of your choosing. [employer] is a website that allows you to securely view your medical information including your hospital discharge summary, office visit summaries, medications and follow-up visits. You can also request appointments, renew medications, and request access to your medical information using a health care grant of your choosing, or just ask a question. You can enroll at [email or web address] or register during your next office visit. You have been discharged from [facility], Patient Care Unit: W3??. If you have any questions regarding these instructions, including results of studies pending, afteryou leave, please call us and we will be happy to assist you 17/09. [facility] Your Care Team Attending Physician Devin PRIEST, Robert Lynn?? Consulting Providers Robert Beltran MD?? Discharging Providers Robert Beltran MD Reason for Your Visit sent in by SNF for low H&H 15/08.2. also has testicular swelling x weeks?? Your Diagnosis Dementia Fecal impaction General medical Genital herpes Hydronephrosis of left kidney Hypothyroidism Tests Performed Below is a partial list of the tests performed during your hospitalization. You may have had other tests and procedures not included in this list. Please discuss all test results with your provider. B12 Vitamin Level Basic Metabolic Panel BUN CA 19-9 Calcium Level CBC CBC w/ Differential Comprehensive Metabolic Panel Creatinine Electrolytes Ferritin Folic Acid Level Glucose Level GLUCOSE POC H + H Hematocrit Hemoglobin HOLD GEL TUBE HOLD LAVENDER TUBE INR Iron + Iron Binding Capacity Lactate Level Magnesium Level Procalcitonin Level Reticulocyte Ct Transferrin Type and Screen Chest CT W/ Contrast CT Abd/Pelvis W/ IV Contrast Only CT Guide Lung Biopsy XR Chest Portable XR Chest Single Frontal View Transfuse RBCs?? Urinalysis w/hold for Urine Culture?? Primary Care Provider Gustavo Kaur DO? Discharge Vitals Temperature: 97.5 DegF Height: 185 cm Pulse Rate:??95 bpm??High Weight: 61.1 kg Respiratory Rate: 18 br/min Body Mass Index: 23.37 kg/m2 Systolic Blood Pressure: 104 mm Hg Body surface area: 2.03 Diastolic Blood Pressure:??53 mm Hg??Low ?? Oxygen Saturation: 100 % ?? Studies Pending All studies ordered during this hospital stay have been completed unless listed below. Please discuss all pending results with your provider listed above in these instructions. ?? Transfuse RBCs?? Urinalysis w/hold for Urine Culture?? What to do next Instructions From Your Doctor You were brought into the hospital due to worsening scrotal edema and??anemia During this hospitalization on imaging you were noted to have a mass??in the tail of pancreas as well as some lesions in the lungs??concerning for cancer.?? You had a lung biopsy done??which??showed metastatic colorectal carcinoma.?? You were evaluated by the oncology team who recommended that because of??various??factors??unfortunately??you are not a candidate for chemotherapy at this time and have recommended to consider??hospice and comfort measures. ?? -Expansion of guardianship and??consideration of hospice and comfort measures to take place as outpatient from the facility ?? -We recommend follow-up with primary care provider in 1??to 2 weeks and to have repeat blood work to include CBC to make sure blood counts are stable??and to assess if??you need any more blood transfusions??in 1 week. ?? -Management of wounds:? 1.) Penis/scrotum: Gently cleanse wound bed followed by the periwound with VASHE solution moistenedgauze. Allow to dry. Apply layer of Triad to wound beds. Only pat and dab, no scrub and rub, when soiling occurs. Reapply daily and PRN after incontinence care.?? 2.) Order/place patient on specialty bed/low air loss mattress 3.) Turn and reposition every 2 hours and PRN 4.) Continue incontinence care as well as moisture management; do not utilize Mepilex foam dressingwith incontinence?? 5.) Do not utilize brief use?? 6.) Continue to offload bony prominences 7.) Continue to provide optimal nutritional support 8.) Provide Gaymar cushion to chair when patient OOB ?? 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 ?? Orders? 04/20/23 14:38:00 EST?? Prescriptions??, ??04/20/23 14:38:00 EST?? You Need to Schedule the Following Appointments Follow Up with??Gustavo Kaur DO When:??Within 1 to 2 weeks Where: [address] [facility] [place] [address]- Discharge Medications BARRIE MEDINA :1960 Visit Date:04/05/2023 Medications: Please continue your medications until treatment is completed or stopped by your provider. Medications not listed below should be discontinued. Discuss any questions related to medications with your provider. What How Much When Instructions Next Dose New Emollients, Topical (Vashe Topical Solution) 475 Milliliter Topically Daily 04/21 New Polyethylene Glycol 3350 (MiraLax oral powder for reconstitution) 17 gram Oral Daily Duration: 14 Days resume Changed ChlorproMAZINE (chlorproMAZINE 25 mg oral tablet) 1 tab(s) Oral Twice a day 04/20 evening Changed Docusate (docusate sodium 100 mg oral tablet) 1 tab(s) Oral Twice a day as needed for as needed for constipation no dose given today Changed Ferrous Sulfate (ferrous sulfate 325 mg oral enteric coated tablet) 1 tab(s) Oral Every other day resume Changed Isosorbide Dinitrate (isosorbide dinitrate 5 mg oral tablet) 1 tab(s) Oral Twice a day 04/20 evening Changed Levothyroxine (levothyroxine 0.075 mg oral tablet) 1 tab(s) Oral Daily 04/21 Changed Senna 8.6 Milligram Oral Daily resume Unchanged Acetaminophen (acetaminophen 325 mg oral tablet) 2 tab(s) Oral Every 4 hours as needed for as needed for pain/fever no dose given today Unchanged amiTRIPTYLINE (amitriptyline 25 mg oral tablet) 1 tab(s) Oral Daily at Bedtime 04/20 evening Unchanged Ascorbic Acid (Vitamin C 500 mg oral tablet) 1 tab(s) Oral Twice a day resume Unchanged Bisacodyl (bisacodyl 10 mg rectal suppository) 1 suppository(ies) Per rectum Daily as needed for for constipation no dose today Unchanged EPINEPHrine (Epipen Auto Injector) 0.3 Milligram Intramuscular Once as needed for Anaphylactic Reaction no dose today Unchanged Gabapentin (gabapentin 300 mg oral capsule) 1 capsule Oral Daily at Bedtime 04/20 evening Unchanged Multivitamin Daily resume Unchanged Sodium Biphosphate-Sodium Phosphate (Fleet Enema 19 gm-7 gm rectal enema) 1 Each Per rectum Once as needed for for constipation no dose today Unchanged ValACYclovir (valACYclovir 500 mg oral tablet) 1 tab(s) Oral Daily at Bedtime 04/20 evening ?? What How Much When Why Comments Stop Taking Aspirin (aspirin buffered 81 mg oral tablet) 1 tab(s) Oral Daily Stop Taking Ibuprofen (ibuprofen 200 mg oral tablet) 3 tablets Oral Every 6 hours as needed for Pain , Moderate Stop Taking PEG Electrolyte Solution (NuLYTELY with Flavor Packs oral powder for reconstitution) 240 Milliliter Oral Every 10 minutes Dementia Encounter for screening colonoscopy Prescription Given During Visit Polyethylene Glycol 3350 (MiraLax oral powder for reconstitution) - 17 Gm, By Mouth, Daily, # 238 Gm, 0 Refills?? Laboratory Results Below is a partial list of the most recent Laboratory test results done prior to this discharge. You may have had other tests and procedures not included in this list. Please discuss all test resultswith your provider. Est Creatinine Clearance - 104.92 mL/min (04/20/2023) RBC Available - PT (04/16/2023) RBC Unit ID - [id number] (04/16/2023) (04/16/2023) ? ?Surgical Pathology - Patient Name: BARRIE MEDINA
Lab
Patient : 1960 (Age: 62)
Collection Date: 04/16/2023
Accession Date: 04/17/2023
Sign Out Date: 04/20/2023

<br/&g t;Tissue Source:
1:RIGHT LUNG NODULE

Final Diagnosis:<b r/>Right lung nodule, core needle biopsy:
- Metastatic colorectal adenocarcinoma (see note).

Note: Immunohistochemical stains performed and reported as follows:
A. CK20: Positive in tumor cells (patchy).
B. CK7: Negative in tumor cells.
C. CDX2: Positive in tumor cells.
D. GATA3: Negative in tumor cells.
E. TTF-1: Negative in tumor cells.
Interpretation: The immunohistochemical stains profile supports the diagnosis of colorectal carcinom a. Immunohistochemical studies for DNA mismatch repair proteins and molecular testing are being performed and will be reported upon separately.

Comment:
These immunohistochemistry and/or in-situ hybridization tests were developed and their performance characteristics d etermined by the immunohistochemistry and in-situ hybridization laboratories at [facility], [place], [place]. They may not have been cleared or approved by the U.S. Food and Drug Administration (FDA). However, the FDA has determined that such clearance or approval is not necessary. These tests are used for clinical purposes. They should not be regarded as investigational or for research.

All immunohistochemical controls are reviewed and show appropriate staining.

Primary Pathologist:Omar Bass M.D.
electronically signed out by: Omar Bass M.D. / MARISOL

<br/&g t;
Clinical History:
Pancreatic mass ?lung metastasis

<b r/>
Gross Description:
Labeled right lung biopsy . Received in formalin are 2 cores of soft mckeon-yellow tissue measuring 0.7 x 0.1 x 0.1 cm and 1.2 x 0.1 x 0.1 cm. The specimen is submitted in toto.
1-1 piece, x 2+8 unstained.
2-1 piece, x 1. ()*

Phone #: [phone], On-Call Pathologist: [phone] B12 Vitamin Level (04/06/2023) ???Vitamin B12 Level - 460 pg/mL Basic Metabolic Panel (04/20/2023) ???Sodium - 139 mmol/L???Potassium - 5.2 mmol/L???Chloride - 105 mmol/L???Bicarbonate Level - 23 mmol/L???Anion Gap - 11???Glucose Level - 86 mg/dL???BUN - 15 mg/dL???Creatinine-Blood - 0.8 mg/dL???Estimated GFR Creatinine - 98 ML/MIN/1.73 M2???Calcium - 8.6 mg/dL BUN (04/17/2023) ???BUN - 14 mg/dL CA 19-9 (04/05/2023) ? ?CA19-9 - <2 U/mL Calcium Level (04/17/2023) ???Calcium - 8.8 mg/dL CBC (04/20/2023) ???WBC - 7.8 k/mm3???RBC - 3.44 m/mm3???Hgb - 8.4 Gm/dL???Hct - 28.5 %???MCV - 82.8 femtoliters???MCH - 24.4 pg???MCHC - 29.5 g/dL???Platelet Count - 638 k/mm3???RDW-SD - 54.4 femtoliters???MPV - 8.1femtoliters???Nucleated RBC (Automated) - 0.0 #/100 WBC'S???Abs. NRBC - 0.0 k/mm3 CBC w/ Differential (04/17/2023) ???WBC - 6.8 k/mm3???RBC - 3.50 m/mm3???Hgb - 8.7 Gm/dL???Hct - 28.4 %???MCV - 81.1 femtoliters???MCH - 24.9 pg???MCHC - 30.6 g/dL???Platelet Count - 661 k/mm3???RDW-SD - 51.5 femtoliters???MPV - 8.1femtoliters???Nucleated RBC (Automated) - 0.0 #/100 WBC'S???Abs. NRBC - 0.0 k/mm3???Abs. Neut - 4.4 k/mm3???Abs. Lymph - 1.3 k/mm3???Abs. Irwin - 0.7 k/mm3???Abs. Eo - 0.4 k/mm3???Abs. Baso - 0.0 k/mm3???Neut % - 64.5 %???Lymph % - 19.3 %???Irwin % - 10.2 %???Eos % - 5.3 %???Baso % - 0.3 %???Imm Gran- 0.4 %???Abs. Imm Gran - 0.0 k/mm3 Comprehensive Metabolic Panel (04/05/2023) ???Sodium - 139 mmol/L???Potassium - 4.7 mmol/L???Chloride - 105 mmol/L???Bicarbonate Level - 25 mmol/L???Anion Gap - 9???Glucose Level - 99 mg/dL???BUN - 16 mg/dL???Creatinine-Blood - 0.9 mg/dL???Estimated GFR Creatinine - 97 ML/MIN/1.73 M2???Calcium - 8.8 mg/dL???Protein, Total - 6.5 Gm/dL???Albumin - 2.7 Gm/dL???AG Ratio - 0.7???Alkaline Phosphatase - 56 units/L???AST (SGOT) - 14 units/L???ALT(SGPT) - 8 units/L? ?Bilirubin, Total - <0.2 mg/dL Creatinine (04/17/2023) ???Creatinine-Blood - 0.8 mg/dL???Estimated GFR Creatinine - 99 ML/MIN/1.73 M2 Electrolytes (04/17/2023) ???Sodium - 137 mmol/L???Potassium - 4.9 mmol/L???Chloride - 101 mmol/L???Bicarbonate Level - 25 mmol/L???Anion Gap - 11 Ferritin (04/06/2023) ???Ferritin Level - 59 ng/mL Folic Acid Level (04/06/2023) ???Folic Acid Level - 10.9 ng/mL Glucose Level (04/17/2023) ???Glucose Level - 64 mg/dL GLUCOSE POC (04/19/2023) ???Glucose, POC - 190 mg/dL H + H (04/07/2023) ???Hgb - 6.9 Gm/dL???Hct - 23.0 % Hematocrit (04/13/2023) ???Hct - 24.0 % Hemoglobin (04/13/2023) ???Hgb - 7.3 Gm/dL HOLD GEL TUBE (04/19/2023) ???Hold Gel Top - SPECIMEN DISCARDED AFTER 1 WEEK HOLD LAVENDER TUBE (04/05/2023) ???Hold Lavender Top - SPECIMEN DISCARDED AFTER 24 HOURS. INR (04/16/2023) ???INR - 1.1???Protime (PT) - 11.8 seconds Iron + Iron Binding Capacity (04/06/2023) ???Iron Level - 16 mcg/dL???Iron Binding Capacity, Unsaturated - 181 mcg/dL???Iron Binding Capacity, Estimated Total - 197 mcg/dL???% Iron Saturation - 8 % Lactate Level (04/12/2023) ???Lactate - 1.0 mmol/L Magnesium Level (04/20/2023) ???Magnesium - 2.0 mg/dL Procalcitonin Level (04/12/2023) ???Procalcitonin - 0.45 ng/mL Reticulocyte Ct (04/06/2023) ???Retic Count - 1.1 %???Retic Count Corrected - 0.6 %???Retic Production Index - 0.3 % Transferrin (04/06/2023) ???Transferrin - 144 mg/dL Type and Screen (04/16/2023) ???Blood Type - B Positive???Antibody Screen - Negative Allergies (NKA means No Known Allergies) shellfish Problems Active Problems??(2) Dementia?? Encounter for screening colonoscopy?? Education Materials Below is the list of Educational Leaflet Providered with your Discharge Instructions. Valuables and Belongings I fully understand and agree that [facility] accepts no responsibility for all my personal property including clothing, toilet articles, radios, jewelry, dentures, hearing aids, rings, money, or any other property that is in my possession or is brought to me after admission. I understand certain valuables may be placed in a hospital safe for a short period of time. I understand that the hospital is not liable for loss or damage due to accident, fire, or other natural occurrence while said property is in the safe. I accept full responsibility for any personal property that I keep with me, and will not hold the hospital responsible in case of loss or disappearance. I acknowledge that i have been encouraged to send valuables and belongings home. ?? Review of Valuable and Belonging List: With witness Date for Pt to Sign Valuables/Belongings: 04/06/23 00:45:00 ?? Other Discharge Information ? Case Management Discharge Plan?? Discharge Plan?? Discharge Agency Information?? Discharge Level of Care at Discharge: halfway facility Name of Agency #1: [facility] Discharge Transportation Arranged: [facility] [address] ??[phone] Service Categories #1: Senior Care Mode of Transportation Arranged: Ambulance Service Comments #1: You are returning to [facility] via ambulance today Discharge Nursing Homes/Rehab Facilities: [facility] ? Pulmonary Rehab Status?? Pulmonary Rehab Discharge Status?? Respiratory Rate: 18 br/min ? Common Emergency Awareness Tips IS IT A STROKE? Act FAST and Check for these signs: FACE Does the face look uneven? ARM Does one arm drift down? SPEECH Does their speech sound strange? TIME Call at any sign of stroke ?? Heart Attack Signs Chest discomfort: Most heart attacks involve discomfort in the center of the chest and lasts more than a few minutes, or goes away and comes back. It can feel like uncomfortable pressure, squeezing, fullness or pain. Discomfort in upper body: Symptoms can include pain or discomfort in one or both arms, back, neck, jaw or stomach. Shortness of breath: With or without discomfort. Other signs: Breaking out in a cold sweat, nausea, or lightheaded. Remember, MINUTES DO MATTER. If you experience any of these heart attack warning signs, call to get immediate medical attention! ?? Smoking can increase your chances of developing chronic health problems and can cause harmful effects to other family members in your house. If you smoke, you are strongly encouraged to quit. Please call [employer] [facility] at [phone] or 5-726-082-AYVENE ([phone]) or log in to [email or web address] for referrals to smoking cessation programs. ?? 989 Suicide & Crisis Lifeline is available 17/09 if you or someone you know needs to find a reason to keep living. By calling 988 you'll be connected to a skilled, trained counselor at a crisis center in your area. INPATIENT DISCHARGE INSTRUCTIONS SIGNATURE PAGE BARRIE MEDINA Location:[facility] Registration Date and Time:04/05/2023 16:35 EST Primary Care Physician: Gustavo Kaur DO, Attending Physician: Devin PRIEST, [facility], I ADAM BARRIE, have received the above patient education materials/instructions and have verbalized understanding. If ambulance or transport services are being used I further acknowledge being given a choice of service. ?? If you need to contact me, please call me at this number: . Patient/Lithographic General Worker Name: Patient/Lithographic General Worker Signature: Relationship to Patient: Witness Name/Signature: Date: Patient Care team information Care Team Personnel Name: Seu Lopes RN Position: [facility] RN Member Role: Primary Care Nurse Name: Clint RN, Triny Position: [facility] RN Member Role: Primary Care Nurse Name: Yelena Mora RN Position: S RN Member Role: Primary Care Nurse Name: Amirah Dawn RN Position: S RN Member Role: Primary Care Nurse Name: Juliocesar Leyva RN Position: [facility] RN Member Role: Primary Care Nurse Name: Gustavo Kaur DO Position: Reference Physician Member Role: PCP Address: Address: [address] [place] [address] [address] [place] [address] [facility] [place], [place] [id number] Name: Amy Norris RN Position: [facility] RN Member Role: Primary Care Nurse Care Team Related Persons Name: IVANA MEDINA Address: home [address] [place] [address]
[2023-09-10 17:31] VITALS: BP 116/71; PULSE 88; RESP 18; TEMP 36.3; O2SAT 99
--- NOTE | 2023-09-10 19:29 | PC.NURSE ---
This RN assumed pt care @ 1900. Pt resting quietly in bed, no signs of distress. Pt nonverbal with this RN not answering questions. Plan of care ongoing.
[2023-09-10 19:49] VITALS: BP 111/58; PULSE 98; RESP 14; TEMP 37.3; O2SAT 100
--- NOTE | 2023-09-10 20:03 | PC.NURSE ---
Pt changed into hospital attire. Pt na care completed. Pts groin area inflamed, and swollen. Dr García notified and aware of groin Dr García with pt. Plan of care ongoing.
[2023-09-10 20:38] VITALS: BP 111/58; PULSE 98; RESP 14; TEMP 37.3; O2SAT 100
--- NOTE | 2023-09-10 20:47 | PC.NURSE ---
This RN gave report to Elena MATTA @ [facility] on [facility] @ [phone].
== END 2023-09-10 20:48 | disposition home or self-care (01) ==
PROVIDERS: Physician Assistant; Emergency Provider Emergency Medicine; PCP Hospitalist
DX: S30.811A Abrasion of abdominal wall, initial encounter (principal); D64.9 Anemia, unspecified; R79.89 Other specified abnormal findings of blood chemistry; X58.XXXA Exposure to other specified factors, initial encounter; Y93.89 Activity, other specified; Y92.89 Other specified places as the place of occurrence of the external cause; Y99.8 Other external cause status; Z79.899 Other long term (current) drug therapy
CPT/HCPCS: 36415; 80048; 80076; 83735; 85025; 85610; 85730; 86850; 86900; 86901; 99283; 99284

== ENCOUNTER 2023-09-16 21:56 | Emergency (ER) | payer MEDICARE, MEDICAID, SELFPAY ==
--- NOTE | 2023-09-16 | ECG_ITS ---
Test Reason : AMS Blood Pressure : / mmHG Vent. Rate : 074 BPM Atrial Rate : 074 BPM P-R Int : 154 ms QRS Dur : 080 ms QT Int : 366 ms P-R-T Axes : 062 -36 078 degrees QTc Int : 406 ms Normal sinus rhythm Left axis deviation Inferior infarct , age undetermined Abnormal ECG When compared with ECG of 11-MAR-2023 14:32, QRS axis Shifted left Inferior infarct is now Present ST elevation now present in Inferior leads Referred By: Generic ED Physician Electronically Signed By:KAVON CAO
--- NOTE | ~2023-09-16 | XR_ITS ---
EXAMINATION: XR CHEST CLINICAL INFORMATION: Mental status change COMPARISON: 08/10/2003. TECHNIQUE: Frontal view of the chest was obtained. FINDINGS: Patchy multifocal airspace opacities in the midlungs and bases bilaterally are more pronounced as compared to prior and likely correspond to a combination of underlying pulmonary nodules and superimposed airspace consolidation. The most discrete of these is a 2 cm nodule in the lateral aspect of the right lung base. A pulmonary nodule is also suspected in the right upper lobe. Cardiac and mediastinal contours are normal. No pleural effusion or pneumothorax. No acute osseous findings. XR/XR chest 1V IMPRESSION: Patchy multifocal airspace opacities in the midlungs and bases bilaterally, likely corresponding to a combination of underlying pulmonary nodules and superimposed airspace consolidation.
--- NOTE | ~2023-09-16 | CT_ITS ---
EXAMINATION: CT HEAD WITHOUT CONTRAST CLINICAL INFORMATION: Mental status change COMPARISON: None available. TECHNIQUE: Contiguous axial imaging was performed from the skull base to vertex without intravenous administration of contrast. This CT examination was performed using dose optimization techniques as appropriate, variously including the following: *Automated exposure control *Adjustment of mA and/or kV according to patient size (this includes techniques or standardized protocols for targeted exams where dose is matched to indication/reason for exam; i.e. extremities or head) *Use of iterative reconstruction technique DLP: 632 mGy-cm FINDINGS: There is no evidence of acute intracranial hemorrhage or territorial infarction. No abnormal mass-effect or midline shift is seen. Schmitz to white matter differentiation is well preserved. No extra-axial fluid collections are identified. The ventricles are normal in size. There is mild periventricular white matter hypoattenuation consistent with chronic small vessel ischemic disease. Mild volume loss is noted. The osseous structures and soft tissues are normal. The mastoid air cells and visualized portions of the paranasal sinuses are well-aerated. CT/CT head/brain wo IV con IMPRESSION: No acute intracranial pathology.
--- NOTE | ~2023-09-16 | CT_ITS ---
EXAMINATION: CT ABDOMEN AND PELVIS WITHOUT CONTRAST CLINICAL INFORMATION: Reason for Exam r/o Ashley gangrene of the pelvic structures COMPARISON: 03/11/2023 TECHNIQUE: Multidetector volumetric imaging was performed from the superior aspect of the liver through the pubic symphysis. Sagittal and coronal reformatted images were obtained on the technologist's workstation. This CT examination was performed using dose optimization techniques as appropriate, variously including the following: *Automated exposure control *Adjustment of mA and/or kV according to patient size (this includes techniques or standardized protocols for targeted exams where dose is matched to indication/reason for exam; i.e. extremities or head) *Use of iterative reconstruction technique DLP: 470 mGy-cm FINDINGS: LUNG BASES: There has been interval increase in size and number of bibasilar pulmonary nodules compared to 03/11/2023. For example, a lateral right lower lobe nodule now measures up to 2.0 cm versus 1.7 cm previously. There may be mild superimposed patchy consolidation at the posterior lower lobes. There is hypoattenuation of the blood flow also to the myocardium, suggesting anemia. LIVER, GALLBLADDER, AND BILIARY TREE: Limited evaluation of the liver without intravenous contrast. However, there is suggestion of several scattered hepatic masses such as measuring approximately 3.9 cm near the IVC on image 12/93 and 3.5 cm in the right lobe on image 30/93. Gallbladder is grossly unremarkable, though not well evaluated. PANCREAS: Limited evaluation without intravenous contrast. Redemonstrated masslike density in the region of the pancreatic tail/left adrenal gland with multiple scattered calcifications. This is not adequately delineated without intravenous contrast though on image 26/93 is suspected to measure up to approximately 8 cm, versus 6.4 cm when measured in similar fashion previously. SPLEEN: Grossly unremarkable. ADRENAL GLANDS: Soft tissue density mass in the expected location of the right adrenal gland measures up to 4.0 x 3.1 cm. Left adrenal gland is not adequately delineated. KIDNEYS AND URETERS: Limited evaluation. No convincing hydronephrosis or obstructing calculus. Left lower pole calcification measures up to 5 mm. BLADDER: Partially distended, with a diffusely thick-walled appearance. GASTROINTESTINAL TRACT: No convincing evidence for bowel obstruction. Large amount of stool is present in the colon and rectum. Limited evaluation for wall thickening given lack of intra-abdominal fat and absence of intravenous contrast. ABDOMINAL WALL: Anasarca noted. The perineum is not completely included on this exam; there is subcutaneous edema throughout the visualized perineum with no appreciable soft tissue gas within the visualized portion. LYMPH NODES: Limited evaluation in the absence of intravenous contrast. Numerous enlarged retroperitoneal lymph nodes are redemonstrated which appear overall similar to mildly increased in size from prior. The more prominent of these lymph nodes measure up to approximately 2.7 cm in diameter. Enlarged bilateral inguinal lymph nodes are also redemonstrated. VASCULAR: Scattered atherosclerotic calcification. Limited evaluation without intravenous contrast. PELVIC VISCERA: Prostate is not adequately delineated. OSSEOUS STRUCTURES: Endplate osteophytes in the lower lumbar spine. CT/CT abdomen pelvis wo IV con IMPRESSION: 1. Perineum is not completely included on this exam, and therefore Ashley gangrene cannot be entirely excluded. There is subcutaneous edema throughout the visualized perineum with no appreciable soft tissue gas within the visualized portion. 2. Redemonstrated masslike density in the region of the pancreatic tail/left adrenal gland which is not adequately delineated without intravenous contrast, though appears to have increased in size from 03/11/2023 and is suspicious for neoplasm. 3. Interval increase in size and number of bibasilar pulmonary nodules compared to 03/11/2023, suspicious for metastases. 4. Suggestion of several scattered hepatic masses, not adequately assessed without intravenous contrast though suspicious for metastases. 5. Soft tissue density mass in the expected location of the right adrenal gland measuring up to 4.0 cm, which appears new from prior and is suspicious for a metastasis 6. Numerous enlarged retroperitoneal lymph nodes, similar to mildly increased in size from prior, likely metastatic. Bilateral inguinal adenopathy also noted. 7. Large amount of stool in the colon and rectum. 8. Diffusely thick-walled appearance of the urinary bladder, which could be due to underdistention or cystitis in the proper clinical setting. Of note, at the time of dictation, the patient is reportedly already being transferred to an outside facility, and therefore more complete imaging of the remainder of the perineum was not able to be obtained. If there is persistent concern for possible Ashley gangrene, additional perineal imaging is recommended once the patient reaches the outside facility. This critical result was discussed with Dr. Matamoros on 09/16/2023 11:56 PM, and it was ascertained that the content and urgency of the report was understood at the time of direct communication.
[2023-09-16 21:59] VITALS: BP 73/41; BP 79/42; PULSE 75; PULSE 78; RESP 13; O2SAT 99; BMI 19.1
--- NOTE | 2023-09-16 22:06 | ED_ITS ---
HPI - General Adult General Chief complaint: Altered Mental Status Stated complaint: AMS, HTN 70/48 Time Seen by Provider: 09/16/23 22:04 Source: patient, EMS and old records reviewed Mode of arrival: EMS Limitations: altered mental status History of Present Illness ED Provider: DR. Matamoros HPI narrative: This is a 62-year-old male with pertinent history of dementia with behavioral disturbance, hypothyroidism, essential hypertension, resident of [facility] who was sent to the ER for evaluation of low blood pressure and mental status change, Unable to obtain history from the patient. As per the nurse at [facility], patient is selectively verbal. He only talks to two nurses at the facility. Patient in the emergency department found to have blood pressure of 79/42. Related Data Home Medications ?Medication ?Instructions ?Recorded ?Confirmed acetaminophen 325 mg capsule 650 mg PO Q4H PRN Pain 05/30/22 01/14/23 aspirin 81 mg tablet,delayed 81 mg PO DAILY 05/30/22 01/14/23 release bisacodyl 10 mg rectal suppository [address] DAILY PRN Constipation 05/30/22 01/14/23 docusate sodium 100 mg capsule 100 mg PO DAILY 05/30/22 01/14/23 (Colace) ibuprofen 200 mg tablet (Motrin IB) 600 mg PO Q6H PRN Pain 05/30/22 01/14/23 isosorbide dinitrate 5 mg tablet 5 mg PO BID 05/30/22 01/14/23 chlorpromazine 25 mg tablet 50 mg PO BID 11/01/22 01/14/23 levothyroxine 75 mcg tablet 75 mcg PO DAILY@0600 11/18/22 01/14/23 multivitamin 1 tab PO DAILY 11/18/22 01/14/23 gabapentin 300 mg capsule 300 mg PO BEDTIME 05/23/23 naloxone 0.4 mg/mL injection 0.4 mg subcut Q3M PRN 05/23/23 solution oxycodone 10 mg/0.5 mL oral 10 mg PO Q4-6H PRN 05/23/23 syringe (FOR ORAL USE ONLY) sennosides 8.6 mg tablet (senna) 8.6 mg PO DAILY 05/23/23 Previous Rx's ?Medication ?Instructions ?Recorded gabapentin 300 mg capsule 300 mg PO BEDTIME #30 caps 11/20/22 polyethylene glycol 3350 17 gram 17 g PO DAILY #30 ea 11/20/22 oral powder packet (Miralax) valacyclovir 500 mg tablet 500 mg PO DAILY #90 tabs 12/03/22 (Valtrex) amitriptyline 25 mg tablet 25 mg PO BEDTIME 30 days #30 tabs 01/14/23 ferrous sulfate 325 mg (65 mg 325 mg PO BID #60 tabs 03/11/23 iron) tablet,delayed release miconazole nitrate 2 % topical 1 appl topical BID #42.5 grams 09/10/23 cream Allergies Allergy/AdvReac Type Severity Reaction Status Date / Time seafood Allergy Swelling Verified 09/16/23 22:05 shellfish derived Allergy Unknown Verified 09/16/23 22:05 SEAFOOD Allergy Severe SWELLING Uncoded 08/21/23 13:19 shell fish Allergy Unknown Unknown Uncoded 09/10/23 16:58 Review of Systems 2 Review of Systems: All other systems are reviewed and are negative Constitutional: Reports as per HPI and Reports no additional constitutional complaints Eyes: Reports as per HPI and Reports no additional eye complaints Reports system reviewed and no additional complaints, except as documented Cardiovascular: Reports as per HPI and Reports no additional cardiovascular complaints Respiratory: Reports as per HPI and Reports no additional respiratory complaints Gastrointestinal: Reports as per HPI and Reports no additional gastrointestinal complaints Genitourinary: Reports no additional female genitourinary complaints Musculoskeletal: Reports no additional musculoskeletal complaints Skin/Breast: Reports system reviewed and no additional complaints, except as docu Psychiatric: Reports no additional psychiatric complaints Endocrine: Reports no additional endocrine complaints Hematologic/Lymphatic: Reports no additional hematologic/lymphatic complaints Allergic/Immunologic: Reports no additional allergic/immunologic complaints Reports system reviewed and no additional complaints, except as documented and Reports Abnormal speech present [facility] Past Medical History Medical History Displaced fracture of distal phalanx of left ring finger, initial encounter for closed fracture Personal history of COVID-19 Age-related nuclear cataract, bilateral Osteoarthritis of hip, unspecified Dementia in other diseases classified elsewhere, unspecified severity, without behavioral disturbance, psychotic disturbance, mood disturbance, and anxiety Myopia, bilateral Full incontinence of feces Essential (primary) hypertension Dysphagia, unspecified Allergy to seafood Allergy, unspecified, initial encounter Unspecified urinary incontinence Hyperlipidemia, unspecified Hypothyroidism, unspecified Hx of thyroid disease Social History Social History Household Members: Unknown / Unable to assess Housing: Residential Unable to assess alcohol history related to: Refusing to respond Alcohol intake: never Patient Tobacco Use Status: Tobacco use Unknown Advance Directives: No Advance Directives Information Provided: No Do you have a plan to hurt others: No Plan service: No Current occupational status: disabled 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 Blood pressure is low. Heart rate normal. Respiratory rate normal. Temperature normal. Oxygen saturation normal. Appearance: Alert. Oriented X3. No acute distress. Head: Normal external exam. Normocephalic. Atraumatic. No Lott signs noted. No raccoon eyes noted Eyes: PERRLA. EOMI. Conjunctiva and sclera normal. Eyelids normal. ENT: TM's Normal. Pharynx normal. Uvula midline. Moist mucous membranes. No trismus noted. No drooling noted. No muffled voice noted. Neck: Normal inspection. Neck supple. FROM. No adenopathy. Thyroid Normal. No meningeal signs. No neck mass noted. CVS: Normal heart rate and rhythm. Heart sound normal. No murmurs noted. Pulses normal throughout. Respiratory: No respiratory distress. Painless inspiration. Breath sounds normal. No wheezes/rales/rhonchi noted. Chest nontender. No accessory muscle usage noted or decreased air movement noted. Abdomen: Soft and nontender. Bowel sounds normal in all 4 quadrants. No distention noted. No organomegaly noted. No visible injury noted. exam: Multiple ulcerative lesion on the penis and scrotum, with redness and hotness. Back: No CVA tenderness. Full range of motion noted. Skin: Skin warm and dry. Normal skin color. Normal skin turgor. No rashes/lesions/lacerations noted. Extremities: No lower extremity edema. Extremities exhibit normal range of motion. Extremities nontender. Neuro: Oriented X 3. Cranial nerve exam: II-XII are grossly intact No motor deficit. No sensory deficit. Reflexes normal. Course Reevaluation(s) Reevaluation #1: A 63-year-old male came in [facility] for change mental status, patient is a non historian unable to provide history of chest pain, EKG is concern of ST-elevation in the inferior leads the case was discussed with Dr.Ahmed Moscoso chute worker at [facility] who stated that the patient is not a candidate for cardiac catheterization but he will take him to CCU, and Blood transfusion is priority for this patient at this point, no start of heparin due to patient anemia and possible bleeding from his cancer, stool is brown but still trace guaiac positive. Time: 22:20 Reevaluation #2: 1. STEMI: Patient is not a candidate for acute cardiac catheterization as per Dr. Moscoso be transferred to CCU at [facility] for further closer monitoring. 2. Pneumonia received Zosyn and 1700 cc normal saline. 3.Severe anemia 2 units blood transfusion needed 2 physicians consent. 4. Head CT is unremarkable for acute intracranial pathology. 5. Chronic scrotal skin infection, no evidence of necrotizing fasciitis on the CT of the abdomen and pelvis today. Time: 23:40 Medications Administered Discontinued Medications Generic Name Dose Route Start Last Admin Trade Name Freq PRN Reason Stop Dose Admin Sodium Chloride 1,000 mls @ 999 mls/hr 09/16/23 22:15 09/16/23 23:02 Ns IV 09/16/23 23:15 Not Given .Q1H1M ONE Piperacillin Sod/Tazobactam 50 mls @ 100 mls/hr 09/16/23 22:16 09/16/23 23:07 Sod 3.375 gm/ Sodium Chloride IV 09/16/23 22:45 Infused ONCE ONE Infusion Sodium Chloride 1,713 mls @ 1,713 mls/hr 09/16/23 22:16 09/16/23 22:37 Ns 30 ml/kg infuse over 1 hr (1713 ml) 09/16/23 23:15 1,713 mls/hr IV Administration .Q1H STA Medical Decision Making Differential Diagnosis Differential Diagnoses: The differential diagnosis associated with the presentation includes (Dehydration, active bleeding, severe anemia, electrolyte derangement, ACS, pneumonia, pneumothorax, necrotizing fasciitis.) Admission/Observation Consideration of admission/observation: Escalation of care including admission/observation considered Consult Healthcare Provider Management of the patient was discussed with: Bookkeeper Receptionist (Dr. Moscoso) Lab Data MDM Lab Attestation statement: I reviewed the patient's lab results. 09/16/23 22:19 09/16/23 22:19 Labs: Lab Results 09/16/23 09/16/23 09/16/23 Range/Units 22:08 22:19 22:28 WBC 9.1 (4.8-10.8) X10*3/uL RBC 2.47 L (4.60-5.80) X10*6/uL Hgb 6.0 L* (14.0-18.0) g/dl Hct 19.5 L* (42.0-52.0) % MCV 78.9 L (80.0-98.0) fL MCH 24.3 L (27.0-33.0) pg MCHC 30.8 L (31.0-36.0) g/dl RDW 19.1 H (11.0-16.0) % Plt Count 411 H (160-400) X10*3/uL MPV 8.0 L (9.4-12.4) fL Immature Gran % (Auto) 0.6 H (0.0-0.4) % Neut % (Auto) 78.1 H (45-73) % Lymph % (Auto) 10.0 L (20-40) % Emmons % (Auto) 10.7 (2-11) % Eos % (Auto) 0.6 (0-4) % Baso % (Auto) 0.0 (0-2) % Lymph # (Auto) 0.9 L (1.2-4.9) X10*3/uL Emmons # (Auto) 1.0 (0.1-1.2) X10*3/uL Eos # (Auto) 0.1 (0.0-0.4) X10*3/uL Baso # (Auto) 0.0 (0.0-0.2) X10*3/uL Abs Immat Gran (auto) 0.05 H (0.00-0.03) X10*3/uL Absolute Neuts (auto) 7.1 (2.0-8.3) x10*3/uL Absolute Nucleated RBC 0.000 (0.0-0.012) X10*3/uL Nucleated RBC % (auto) 0.0 (0.0-0.2) /100WBC PT 15.6 H (11.1-13.3) SEC INR 1.3 H (0.9-1.1) Sodium 134 L (135-145) mmol/L Potassium 4.4 (3.3-5.1) mmol/L Chloride 105 (96-108) mmol/L Carbon Dioxide 21 L (22-29) mmol/L Anion Gap 12 (12-20) BUN 19 H (9-16) mg/dL Creatinine 0.85 (0.5-1.4) mg/dL Estim Creat Clear Calc 69.9 Estimated GFR > 60 POC Glucose 99 (60-115) mg/dL Random Glucose 102 (60-115) mg/dL Lactic Acid 2.0 (0.5-2.0) mmol/L Calcium 8.1 L (8.4-10.2) mg/dL Total Bilirubin 0.1 (0.0-1.0) mg/dL Direct Bilirubin < 0.2 (0.0-0.5) mg/dL AST 160 H (5-37) U/L ALT 20 (0-40) U/L Alkaline Phosphatase 113 (39-117) U/L Troponin I High Sens 61786.9 H* (<3.5-35.0) ng/L Total Protein 6.1 L (6.5-8.0) g/dL Albumin 2.0 L (3.5-5.0) g/dL Lipase 13 (8-78) U/L Stool Occult Blood (NEGATIVE) Blood Type B Positive Antibody Screen NEGATIVE Crossmatch See Detail 09/16/23 Range/Units 22:34 WBC (4.8-10.8) X10*3/uL RBC (4.60-5.80) X10*6/uL Hgb (14.0-18.0) g/dl Hct (42.0-52.0) % MCV (80.0-98.0) fL MCH (27.0-33.0) pg MCHC (31.0-36.0) g/dl RDW (11.0-16.0) % Plt Count (160-400) X10*3/uL MPV (9.4-12.4) fL Immature Gran % (Auto) (0.0-0.4) % Neut % (Auto) (45-73) % Lymph % (Auto) (20-40) % Emmons % (Auto) (2-11) % Eos % (Auto) (0-4) % Baso % (Auto) (0-2) % Lymph # (Auto) (1.2-4.9) X10*3/uL Emmons # (Auto) (0.1-1.2) X10*3/uL Eos # (Auto) (0.0-0.4) X10*3/uL Baso # (Auto) (0.0-0.2) X10*3/uL Abs Immat Gran (auto) (0.00-0.03) X10*3/uL Absolute Neuts (auto) (2.0-8.3) x10*3/uL Absolute Nucleated RBC (0.0-0.012) X10*3/uL Nucleated RBC % (auto) (0.0-0.2) /100WBC PT (11.1-13.3) SEC INR (0.9-1.1) Sodium (135-145) mmol/L Potassium (3.3-5.1) mmol/L Chloride (96-108) mmol/L Carbon Dioxide (22-29) mmol/L Anion Gap (12-20) BUN (9-16) mg/dL Creatinine (0.5-1.4) mg/dL Estim Creat Clear Calc Estimated GFR POC Glucose (60-115) mg/dL Random Glucose (60-115) mg/dL Lactic Acid (0.5-2.0) mmol/L Calcium (8.4-10.2) mg/dL Total Bilirubin (0.0-1.0) mg/dL Direct Bilirubin (0.0-0.5) mg/dL AST (5-37) U/L ALT (0-40) U/L Alkaline Phosphatase (39-117) U/L Troponin I High Sens (<3.5-35.0) ng/L Total Protein (6.5-8.0) g/dL Albumin (3.5-5.0) g/dL Lipase (8-78) U/L Stool Occult Blood POSITIVE (NEGATIVE) Blood Type Antibody Screen Crossmatch Independent Interpretation I performed an independent interpretation of an: EKG (A sinus rhythm at 74 beats per minute, normal intervals, ST elevation in lead II,III, and AVF), Plain X-Ray (Patchy multifocal airspace opacities in the midlungs and bases bilaterally, likely corresponding to a combination of underlying pulmonary nodules and superimposed airspace consolidation. ) and CT Scan (Head: No acute intracranial pathology.) Radiology Impression Discussion of test interpretation with radiology: I have reviewed the radiologist's reading. Critical Care Time Critical Care Time Critical Care Time: Yes Total Critical Care Time: 60 Attestation: The patient was critically ill with a high probability of imminent or life- threatening deterioration. I spent greater than 30 minutes of discontinuous time evaluating the patient, delivering critical care at the bedside, discussing evaluating data with consultants. Critical care time does not include time spent performing separately billable procedures or teaching. Time spent performing critical care was 60 minutes. Discharge Plan Discharge Clinical Impression: ST elevation (STEMI) myocardial infarction, Anemia, Acute alteration in mental status Patient Disposition: [facility] Transfer Details: CCU at [facility]. Prescriptions: No Action multivitamin Tablet 1 tab PO DAILY levothyroxine 75 mcg Tablet 75 mcg PO DAILY@0600 gabapentin 300 mg Capsule 300 mg PO BEDTIME Qty: 30 0RF polyethylene glycol 3350 [Miralax] 17 gram powder in packet 17 g PO DAILY Qty: 30 0RF valacyclovir [Valtrex] 500 mg tablet 500 mg PO DAILY Qty: 90 0RF Rx Instructions: to be taken after 10 days of acute treatment for the rest of his life ferrous sulfate 325 mg (65 mg iron) tablet,delayed release (DR/EC) 325 mg PO BID Qty: 60 0RF miconazole nitrate 2 % cream 1 appl topical BID Qty: 42.5 1RF acetaminophen 325 mg capsule 650 mg PO Q4H PRN (Reason: Pain) aspirin 81 mg tablet,delayed release (DR/EC) 81 mg PO DAILY bisacodyl 10 mg suppository [address] DAILY PRN (Reason: Constipation) docusate sodium [Colace] 100 mg capsule 100 mg PO DAILY isosorbide dinitrate 5 mg tablet 5 mg PO BID Rx Instructions: allow nitrate-free interval of 12-14 hrs per 24-hr period ibuprofen [Motrin IB] 200 mg tablet 600 mg PO Q6H PRN (Reason: Pain) gabapentin 300 mg capsule 300 mg PO BEDTIME naloxone 0.4 mg/mL solution 0.4 mg subcut Q3M PRN Rx Instructions: NTExceed 10 mg total dose/episode oxycodone 10 mg/0.5 mL syringe 10 mg PO Q4-6H PRN sennosides [senna] 8.6 mg tablet 8.6 mg PO DAILY chlorpromazine 25 mg tablet 50 mg PO BID amitriptyline 25 mg tablet 25 mg PO BEDTIME 30 Days Qty: 30 1RF Print Language: Beninese
--- NOTE | 2023-09-16 22:15 | ECG_ITS ---
Test Reason : ELEVATED TROPONIN Blood Pressure : / mmHG Vent. Rate : 077 BPM Atrial Rate : 077 BPM P-R Int : 168 ms QRS Dur : 082 ms QT Int : 380 ms P-R-T Axes : 078 -46 083 degrees QTc Int : 430 ms Normal sinus rhythm Left axis deviation Low voltage QRS Inferior infarct (cited on or before 16-SEP-2023) ACUTE UT / STEMI Consider right ventricular involvement in acute inferior infarct Abnormal ECG When compared with ECG of 16-SEP-2023 22:02, No significant change was found Referred By: Mayelin Matamoros Electronically Signed By:KAVON CAO
[2023-09-16 22:26] LABS: MANUAL DIFF FLAG NO
[2023-09-16 22:26] LABS: Glucose, Whole Blood 99 mg/dL (60-115)
[2023-09-16 22:27] LABS: Eosinophils Absolute Auto 0.1 X10*3/uL (0.0-0.4); Eosinophils Percent Auto 0.6 % (0-4); Imm Gran Abs Auto 0.05 X10*3/uL (0.00-0.03); Imm Gran Pct Auto 0.6 % (0.0-0.4); Lymphocytes Absolute Auto 0.9 X10*3/uL (1.2-4.9); Mean Corpuscular HGB Conc 30.8 g/dl (31.0-36.0); Mean Corpuscular Hemoglobin 24.3 pg (27.0-33.0); Mean Corpuscular Volume 78.9 fL (80.0-98.0); Monocytes Percent Auto 10.7 % (2-11); Neutrophils Absolute Auto 7.1 x10*3/uL (2.0-8.3); Neutrophils Percent Auto 78.1 % (45-73); Platelet Count 411 X10*3/uL (160-400); Red Blood Count 2.47 X10*6/uL (4.60-5.80); Red Cell Distribution Width 19.1 % (11.0-16.0); White Blood Count 9.1 X10*3/uL (4.8-10.8)
[2023-09-16 22:28] LABS: Hematocrit 19.5 % (42.0-52.0)
[2023-09-16 22:34] LABS: INTERNATIONAL NORM RATIO 1.3 (0.9-1.1); Prothrombin Time 15.6 SEC (11.1-13.3)
[2023-09-16] MEDS: Piperacillin Sodium/Tazobactam 3.375 GM in 0.9 % Sodium Chloride 50 ML IV (22:37)
[2023-09-16 22:40] LABS: OBS Int Ctl Valid YES; OBS1 POSITIVE (NEGATIVE)
[2023-09-16 22:41] VITALS: BP 77/43; PULSE 71; RESP 13; TEMP 37.2; O2SAT 100
[2023-09-16 22:46] LABS: Alanine Aminotransferase 20 U/L (0-40); Alkaline Phosphatase 113 U/L (39-117); Anion Gap 12 (12-20); Aspartate Amino Transferase 160 U/L (5-37); Bilirubin Direct < 0.2 mg/dL (0.0-0.5); Bilirubin Total 0.1 mg/dL (0.0-1.0); Blood Urea Nitrogen 19 mg/dL (9-16); Calcium 8.1 mg/dL (8.4-10.2); Carbon Dioxide 21 mmol/L (22-29); Chloride 105 mmol/L (96-108); Creatinine Clr Calc Pharmacy 69.9; Estimated Glomerular Filt Rate > 60; Glucose Random 102 mg/dL (60-115); Lipase 13 U/L (8-78); Potassium 4.4 mmol/L (3.3-5.1); Sodium 134 mmol/L (135-145); Total Protein 6.1 g/dL (6.5-8.0)
--- NOTE | 2023-09-16 22:54 | PC.NURSE ---
pt BIBA from [facility], staff reporting AMS x 1 week, hypotension BP 60s/40s this evening. on arrival, Pt is lethargic, not answering questions, responsive to verbal/painful stimuli. NSR on information technology account manager, BP 77/31. Elmolgy to room. pt cleaned up and linens changed, iv line placed, labs collected and sent to lab, blood cultures/lactic/type&screen done. rectal exam done by MD, rectal temp 99. pt is 100% O2 on room an exam, scrotum noticed to be extremely enlarged, red/bloody, and cellulitic. pictures taken for chart by doctor. iv fluids/antibiotics started per apr. pt in CT scan now.
--- NOTE | 2023-09-16 23:04 | PC.NURSE ---
per MD pt to receive 30ml/kg of iv fluids - approx 1700cc total - reflected in mar
[2023-09-16 23:27] VITALS: BP 72/32; PULSE 77; RESP 12; O2SAT 100
[2023-09-16 23:31] VITALS: BP 72/32; PULSE 74; RESP 14; TEMP 37.2
[2023-09-16 23:33] VITALS: BP 92/52; PULSE 76; RESP 11; O2SAT 98
--- NOTE | 2023-09-16 23:33 | PC.NURSE ---
critical troponin result from lab, repeat ekg done [place], ekg showing ACUTE NH/STEMI - MD gonzalezgy on phone with [facility] CCU for trasnport. per MD do not begin heparin as pt H&H is critical , blood transfusion began. verified with second RN Vandana.
--- NOTE | 2023-09-16 23:35 | PC.NURSE ---
waiting for bed assignment at [facility]. [facility] on standby.
[2023-09-16 23:46] VITALS: BP 93/55; PULSE 72; RESP 11; TEMP 36.7
[2023-09-16] MEDS: Aspirin Enteric Coated 81 MG TABLET.DR 162 MG PO (23:53)
--- NOTE | 2023-09-17 00:09 | PC.NURSE ---
report called and given to Robert MATTA at [facility] - pt going to [facility] room 22 HVCC unit pt being moved onto ems stretcher now for transport to [facility] [place].
[2023-09-17 00:11] VITALS: BP 95/54
[2023-09-17 00:15] VITALS: BP 95/54; PULSE 72; RESP 11; TEMP 36.7; O2SAT 98
== END 2023-09-17 00:36 | disposition short-term general hospital (02) ==
PROVIDERS: Emergency Provider Emergency Medicine
DX: I21.29 ST elevation (STEMI) myocardial infarction involving other sites (principal); D64.9 Anemia, unspecified; R41.82 Altered mental status, unspecified; Z79.899 Other long term (current) drug therapy
CPT/HCPCS: 36415; 36430; 70450; 71045; 74176; 80048; 80076; 82272; 82947; 83605; 83690; 84484; 85025; 85610; 86850; 86900; 86901; 86923; 87040; 93005; 96361; 96374; 99285; J2543; P9016

== ENCOUNTER → 2023-09-16 22:02 | Outpatient (BNV) | payer MEDICARE, MEDICAID, SELFPAY | PROVIDERS: Emergency Provider Emergency Medicine; Visit Provider Internal Medicine | DX: R94.31 Abnormal electrocardiogram [ECG] [EKG] (principal) | CPT/HCPCS: 93010 ==